=== PATIENT | female | born 1940 | race Caucasian/White ===

== ENCOUNTER 2017-08-21 16:59 | Inpatient (IN) | payer MEDICARE, OTHER ==
[~2017-08-21] VITALS: Ht 175.3 cm; Wt 106.6 kg
[~2017-08-21 16:59] MED LIST: BENAZEPRIL; COREG; JANUVIA; METFORMIN; [UNRECOGNIZED DRUG - REMARK]
--- NOTE | 2017-08-21 17:58 | Diagnostic Imaging Report ---
PROCEDURE: A single AP view of the chest. COMPARISON: None available. INDICATIONS: SHORT OF BREATH FINDINGS: Lines/tubes: Dual-lead left chest wall cardiac device in place with distal leads overlying right atrium and right ventricle. Lungs: Limited by low lung volumes and body habitus. Patient's chin obscures the extreme apices. There is pulmonary vascular congestion and mild interstitial edema. Pleura: There is no significant pleural effusion or pneumothorax. Heart and mediastinum: Enlarged cardiomediastinal silhouette on this AP view. Mild calcification aortic arch. Bones: No acute bony abnormality. IMPRESSION: Limited study as above. Pulmonary vascular congestion and mild interstitial edema. Underlying infiltrate in the perihilar regions cannot be excluded. Dictated by: Jadiel Billingsley M.D. on 08/21/2017 at 17:59 Electronically approved by: Jadiel Billingsley M.D. on 08/21/2017 at 17:59
[2017-08-21 18:17] LABS: BASOPHILS % 0.1 % (0.0-1.0); EOSINOPHILS # (AUTO) 0.1 (0.0-0.4); EOSINOPHILS % 1.1 % (0.0-6.0); HEMATOCRIT 30.4 % (34.2-44.1); HEMOGLOBIN 9.5 g/dL (12.0-16.0); LYMPHOCYTES # (AUTO) 1.1 (1.0-3.2); LYMPHOCYTES % 14.8 % (18.0-39.1); MEAN CORPUSCULAR HEMOGLOBIN 27.6 pg (28-32); MEAN CORPUSCULAR HGB CONC 31.3 g/dL (31-35); MEAN CORPUSCULAR VOLUME 88.4 fL (81-99); MONOCYTES # (AUTO) 0.5 (0.2-0.8); MONOCYTES % 6.9 % (4.4-11.3); NEUTROPHILS # (AUTO) 5.4 (2.1-6.9); NEUTROPHILS % 76.8 % (38.7-80.0); PLATELET COUNT 106 x10e3/uL (140-360); RED BLOOD COUNT 3.44 x10e6/uL (3.6-5.1); RED CELL DISTRIBUTION WIDTH 14.2 % (11.7-14.4)
[2017-08-21 18:23] LABS: INR 1.39
[2017-08-21 18:31] LABS: ALBUMIN 3.1 g/dL (3.5-5.0); ALBUMIN/GLOBULIN RATIO 0.8 (0.8-2.0); ANION GAP 12.4 mmol/L (8-16); CREATININE, SERUM 1.64 mg/dL (0.57-1.11); MAGNESIUM 1.2 MG/DL (1.3-2.1); POTASSIUM 4.4 mmol/L (3.5-5.1)
[2017-08-21 18:37] LABS: CLARITY,URINE SL CLOUDY (CLEAR); COLOR,URINE STRAW (YELLOW); LEUKOCYTE ESTERASE ,URINE TRACE (NEGATIVE); NITRITE,URINE NEGATIVE (NEGATIVE); PROTEIN,URINE DIPSTICK 2+ (NEGATIVE)
[2017-08-21 18:38] LABS: BILIRUBIN,URINE NEGATIVE (NEGATIVE); KETONES,URINE NEGATIVE (NEGATIVE); URINE UROBILINOGEN 0.2 mg/dL (0.2 - 1)
[2017-08-21] MEDS ORDERED: RIVAROXABAN 20 MG TABLET PO SCH (18:45)
[2017-08-21 18:47] LABS: BACTERIA,URINE MANY /HPF; EPITHELIAL CELLS,URINE FEW /LPF
[2017-08-21 18:52] LABS: CREATINE KINASE MB 1.3 ng/mL (0-5.0); THYROID STIMULATING HORMONE 1.397 uIU/mL (0.350-4.940)
--- NOTE | 2017-08-21 20:49 | Diagnostic Imaging Report ---
EXAM: VENTILATION PERFUSION LUNG SCAN INDICATION: 77 F with acute onset SOB COMPARISON: None DISCUSSION: Xenon-133 gas 11 mCi was administered via inhalation. Dynamic images of the lungs in the posterior projection were obtained through single breath and washout phases. Distribution of tracer activity is very irregular throughout the lungs. Washout is diffusely delayed with diffuse air trapping. Perfusion images of the lungs in multiple projections were obtained following intravenous administration of 6 mCi of Tc-99m MAA. Distribution of tracer is very irregular throughout the lungs. There are no segmental perfusion defects of any size. The contours of the lungs are well demarcated. The cardiac silhouette is enlarged. IMPRESSION: 1. Scan findings represent a LOW probability for acute pulmonary embolic disease based on the PIOPED II criteria. 2. Scan findings are compatible with diffuse parenchymal and/or obstructive lung disease. Signed by: Dr. Adelaide Grace M.D. on 08/21/2017 8:45 PM
[2017-08-21] MEDS ORDERED: SODIUM CHLORIDE FLUSH 10 ML SYR INJ PRN (21:45)
[2017-08-21] MEDS ORDERED: ONDANSETRON HCL INJ 2 MG/ML VIAL IV PRN (21:45)
--- OUTSIDE RECORDS SUMMARY | 2017-08-21 21:53 | XMS REPORT ---
Author Author [facility] Address Unknown Phone Unavailable Care Team Providers Care Registered Dental Assistant Name Role Phone MARCO A BELTRAN Unavailable Unavailable Problems This patient has no known problems. Allergies, Adverse Reactions, Alerts This patient has no known allergies or adverse reactions. Medications This patient has no known medications. Results Test Description Test Time Test Comments Text Results Atomic Results Result Comments CHEST SINGLE (PORTABLE) [place] [address] Patient Name: LEO SOMERS MR #: [id number] : 1940 Age/Sex: 77/F Req #: [id number] Adm Physician: Ordered by: SUN MYLES CLEANING CUSTODIAN Report #: [id number] Location: ER Room/Bed: Procedure: [id number] DX/CHEST SINGLE (PORTABLE) Exam Date: 08/21/17 Exam Time: 1730 REPORT STATUS: Signed PROCEDURE: A single AP view of the chest. COMPARISON: None available. INDICATIONS : SHORT OF BREATH FINDINGS: Lines/tubes: Dual-lead left chest wall cardiac device in place with distal leads overlying right atrium and right ventricle. Lungs: Limited by low lung volumes and body habitus. Patient's chin obscures the extreme apices. There is pulmonary vascular congestion and mild interstitial edema. Pleura: There is no significant pleural effusion or pneumothorax. Heart and mediastinum: Enlarged cardiomediastinal silhouette on this AP view. Mild calcification aortic arch. Bones: No acute bony abnormality. IMPRESSION: Limited study as above. Pulmonary vascular congestion and mild interstitial edema. Underlying infiltrate in the perihilar regions cannot be excluded. Dictated by: Jadiel Singleton M.D. on 08/21/2017 at 17:59 Electronically approved by: Jadiel Singleton M.D. on 08/21/2017 at 17:59 Dictated By: JADIEL SINGLETON MD 58 Transcribed By: ELIAN on 08/21/171758 COPY TO: SUN MYLES CLEANING CUSTODIAN VQ LUNG SCAN VENT PERFUSION [place] [address] Patient Name: LEO SOMERS MR #: [id number] : 1940 Age/Sex: 77/F Req #: [id number] Adm Physician: Ordered by: SUN MYLES CLEANING CUSTODIAN Report #: [id number] Location: ER Room/Bed: Procedure: [id number] NM/VQ LUNG SCAN VENT PERFUSION Exam Date: Exam Time: REPORT STATUS: Signed EXAM: VENTILATION PERFUSION LUNG SCAN INDICATION: 77 F with acute onset SOB COMPARISON: None DISCUSSION: Xenon-133 gas 11 mCi was administered via inhalation. Dynamic images of the lungs in the posterior projection were obtained through single breath and washout phases. Distribution of tracer activity is very irregular throughout the lungs. Washout is diffusely delayed with diffuse air trapping. Perfusion images of the lungs in multiple projections were obtained following intravenous administration of 6 mCi of Tc-99m MAA. Distribution of tracer is very irregular throughout the lungs. There are no segmental perfusion defects of any size. The contours of the lungs are well demarcated. The cardiac silhouette is enlarged. IMPRESSION: 1. Scan findings represent a LOW probability for acute pulmonary embolic disease based on the PIOPED II criteria. 2. Scan findings are compatible with diffuse parenchymal and/or obstructive lung disease. Signed by: Dr. Mary Grace M.D. on 08/21/2017 8:45 PM Dictated By: MARY GRACE MD 44 Transcribed By: TERRANCE on 08/21/172044 COPY TO: SUN MYLES NP
[2017-08-22] VITALS (9 sets, daily range): BP systolic 102–151; BP diastolic 55–80
[2017-08-22] MEDS ORDERED: LASIX20 MG PO (01:49)
[2017-08-22] MEDS ORDERED: AMLODIPINE BESY10 MG PO (01:49)
[2017-08-22] MEDS ORDERED: CEPHALEXIN500 MG PO (01:49)
[2017-08-22] MEDS ORDERED: BENAZEPRIL HCL10 MG PO (01:49)
[2017-08-22] MEDS ORDERED: ESIDRIX25 MG PO (01:49)
[2017-08-22] MEDS ORDERED: FUROSEMIDE 40 MG TAB PO SCH (06:00)
[2017-08-22] MEDS ORDERED: MAGNESIUM SULFATE 2GM/50ML 50 ML IV ONE (12:15)
--- NOTE | 2017-08-22 13:43 | Consultation ---
DATE OF CONSULTATION: August 22, 2017 CARDIOLOGY CONSULTATION The patient is a 77-year-old with shortness of breath. HISTORY OF PRESENT ILLNESS: The patient is a 77-year-old who has been short of breath for several days, worse with walking or exerting herself. The patient has had no chest pain, no syncope and no dizziness, no nausea, no vomiting, no abdominal pain. PAST MEDICAL HISTORY: Significant for 1. Previous permanent pacemaker insertion. 2. Previous myocardial infarction at [facility]. 3. History of a previous hip surgery. 4. History of hypertension. 5. History of chronic atrial fibrillation. MEDICATIONS AT HOME: Include 1. Amlodipine. 2. Benazepril. 3. Furosemide. 4. Xarelto. SOCIAL HISTORY: The patient does not drink and does not smoke. Patient lives independently. FAMILY HISTORY: There is a known family history of coronary artery disease. PHYSICAL EXAMINATION GENERAL: The patient is a well-developed, well-nourished female in no distress. VITAL SIGNS: Include a temperature of 97.7, pulse of 110, blood pressure of 103/72. HEAD, EARS, EYES, NOSE AND THROAT: The patient's cranium is normocephalic and atraumatic. Extraocular muscles are intact. Sclerae are anicteric. Pupils are equally round and reactive to light. There is no pallor or cyanosis of the oral mucosa. There is no erythema or edema of the throat. NECK: Supple. No jugular venous distention. No carotid bruits. CHEST: Demonstrates rhonchi and rales bilaterally. CARDIAC: Demonstrates an irregularly irregular rhythm with a short 2/6 systolic murmur. ABDOMEN: Demonstrates good bowel sounds. No tenderness and no masses. EXTREMITIES: The patient has 2 to 3+ edema bilaterally. NEUROLOGICALLY: The patient is alert and oriented x3. Cranial nerves 2-12 are intact. Motor strength is +5/+5 in all limbs. Patient's EKG demonstrated atrial fibrillation with a rapid ventricular response. IMPRESSION: The patient is a 77-year-old with congestive heart failure and atrial fibrillation with a rapid ventricular response. My recommendations are as follows: 1. The patient will require diuresis to get rid of the extra fluid. 2. An echocardiogram with Doppler has been ordered. 3. A ventilation/perfusion scan was already done, demonstrating low probability for pulmonary embolism. 4. The patient's Xarelto is being continued for her atrial fibrillation. 1. A Lexiscan nuclear stress test will be arranged for tomorrow to exclude ischemia. Job#: [id number] EV cc:SHELLEY BEGUM MD
[2017-08-22] MEDS: FUROSEMIDE INJ 10 MG/ML 4 ML VIAL IV SCH ×2 (14:53→21:59)
[2017-08-22] MEDS ORDERED: FUROSEMIDE INJ 10 MG/ML 4 ML VIAL IV SCH (21:00)
[2017-08-23] VITALS (8 sets, daily range): BP systolic 122–157; BP diastolic 60–94
[2017-08-23] MEDS: FUROSEMIDE INJ 10 MG/ML 4 ML VIAL IV SCH ×3 (06:15→21:30)
[2017-08-23 07:05] LABS: BASOPHILS % 0.3 % (0.0-1.0); EOSINOPHILS # (AUTO) 0.2 (0.0-0.4); EOSINOPHILS % 2.4 % (0.0-6.0); HEMATOCRIT 31.5 % (34.2-44.1); HEMOGLOBIN 9.7 g/dL (12.0-16.0); MEAN CORPUSCULAR HEMOGLOBIN 27.7 pg (28-32); MEAN CORPUSCULAR HGB CONC 30.8 g/dL (31-35); MONOCYTES # (AUTO) 0.5 (0.2-0.8); NEUTROPHILS # (AUTO) 4.6 (2.1-6.9); NEUTROPHILS % 72.8 % (38.7-80.0); PLATELET COUNT 123 x10e3/uL (140-360); RED CELL DISTRIBUTION WIDTH 14.3 % (11.7-14.4)
[2017-08-23 07:29] LABS: ANION GAP 13.5 mmol/L (8-16); CALCIUM 8.9 mg/dL (8.4-10.2); CREATININE, SERUM 1.67 mg/dL (0.57-1.11); MAGNESIUM 1.5 MG/DL (1.3-2.1); POTASSIUM 4.5 mmol/L (3.5-5.1)
[2017-08-23] MEDS: AMLODIPINE BESYLATE 10 MG TAB PO SCH (08:29)
[2017-08-23] MEDS: BENAZEPRIL HCL 10 MG TAB PO SCH (08:29)
[2017-08-23] MEDS: METOPROLOL TARTRATE 25 MG TAB PO SCH ×2 (09:47→16:33)
[2017-08-23] MEDS ORDERED: DEXTROSE 50% SYRINGE 50 ML IV PRN (10:15)
[2017-08-23] MEDS: INSULIN REGULAR, HUMAN 100 UNIT/1 ML 3ML VIAL SQ SCH ×3 (11:30→21:12)
[2017-08-23] MEDS: RIVAROXABAN 10 MG TABLET PO SCH (16:33)
[2017-08-24] VITALS: BP 151/95
[2017-08-24] MEDS: METOPROLOL TARTRATE INJ 1 MG/ML VIAL IV PRN ×2 (00:07→04:07)
[2017-08-24 04:00] VITALS: BP 142/70
[2017-08-24] MEDS: FUROSEMIDE INJ 10 MG/ML 4 ML VIAL IV SCH ×3 (05:45→21:29)
[2017-08-24 07:25] LABS: BASOPHILS % 0.2 % (0.0-1.0); EOSINOPHILS # (AUTO) 0.2 (0.0-0.4); EOSINOPHILS % 1.9 % (0.0-6.0); HEMATOCRIT 34.8 % (34.2-44.1); HEMOGLOBIN 10.6 g/dL (12.0-16.0); LYMPHOCYTES # (AUTO) 1.6 (1.0-3.2); LYMPHOCYTES % 19.2 % (18.0-39.1); MEAN CORPUSCULAR HEMOGLOBIN 27.2 pg (28-32); MEAN CORPUSCULAR HGB CONC 30.5 g/dL (31-35); MEAN CORPUSCULAR VOLUME 89.2 fL (81-99); MONOCYTES # (AUTO) 0.6 (0.2-0.8); MONOCYTES % 7.2 % (4.4-11.3); NEUTROPHILS # (AUTO) 5.8 (2.1-6.9); NEUTROPHILS % 70.3 % (38.7-80.0); PLATELET COUNT 163 x10e3/uL (140-360); RED CELL DISTRIBUTION WIDTH 14.2 % (11.7-14.4)
[2017-08-24] MEDS: INSULIN REGULAR, HUMAN 100 UNIT/1 ML 3ML VIAL SQ SCH ×4 (07:30→21:19)
[2017-08-24 07:45] LABS: ANION GAP 12.2 mmol/L (8-16); CALCIUM 9.4 mg/dL (8.4-10.2); CREATININE, SERUM 1.73 mg/dL (0.57-1.11); POTASSIUM 4.2 mmol/L (3.5-5.1)
[2017-08-24] MEDS ORDERED: DIGOXIN INJ 0.25 MG/ML 2 ML AMP IV NR (08:00)
[2017-08-24 08:40] VITALS: BP 107/60
[2017-08-24] MEDS: BENAZEPRIL HCL 10 MG TAB PO SCH (09:00)
--- NOTE | 2017-08-24 09:52 | Diagnostic Imaging Report ---
PROCEDURE: X-RAY CHEST, TWO VIEWS COMPARISON: Patients [facility], DX, CHEST SINGLE (PORTABLE), 08/21/2017, 17:43. INDICATIONS: CONGESTIVE HEART FAILURE FINDINGS: LUNGS: Improvement in the pulmonary edema. PLEURA: Minimal fluid within the minor fissure. HEART \T\ MEDIASTINUM: The heart remains enlarged. Dual-lead cardiac device overlies the left chest. BONES \T\ SOFT TISSUES: Degenerative changes of the spine. CONCLUSION: Improvement in the pulmonary edema. Kieran Giles D.O. Dictated by: Kieran Giles D.O. on 08/24/2017 at 9:53 Electronically approved by: Kieran Giles D.O. on 08/24/2017 at 9:53
[2017-08-24] MEDS: AMLODIPINE BESYLATE 10 MG TAB PO SCH (09:53)
[2017-08-24] MEDS: AMIODARONE HCL 200 MG TAB PO SCH (09:53)
[2017-08-24 10:53] VITALS: BP 107/60
[2017-08-24] MEDS: METOPROLOL TARTRATE 25 MG TAB PO SCH ×2 (12:00→17:12)
[2017-08-24] MEDS: RIVAROXABAN 10 MG TABLET PO SCH (16:47)
[2017-08-24 17:03] VITALS: BP 122/71
[2017-08-24 20:00] VITALS: BP 107/68
[2017-08-25] VITALS (8 sets, daily range): BP systolic 109–132; BP diastolic 63–77
[2017-08-25] MEDS: METOPROLOL TARTRATE 25 MG TAB PO SCH ×4 (00:04→17:13)
[2017-08-25] MEDS: FUROSEMIDE INJ 10 MG/ML 4 ML VIAL IV SCH ×3 (06:07→21:04)
[2017-08-25 09:19] LABS: ANION GAP 12.6 mmol/L (8-16); CALCIUM 9.3 mg/dL (8.4-10.2); CREATININE, SERUM 1.73 mg/dL (0.57-1.11); POTASSIUM 3.6 mmol/L (3.5-5.1)
[2017-08-25] MEDS: BENAZEPRIL HCL 10 MG TAB PO SCH (10:14)
[2017-08-25] MEDS: INSULIN REGULAR, HUMAN 100 UNIT/1 ML 3ML VIAL SQ SCH ×4 (10:14→20:50)
[2017-08-25] MEDS: AMIODARONE HCL 200 MG TAB PO SCH (10:14)
[2017-08-25] MEDS: AMLODIPINE BESYLATE 10 MG TAB PO SCH (10:14)
[2017-08-25] MEDS: RIVAROXABAN 10 MG TABLET PO SCH (17:13)
[2017-08-26] VITALS: BP 128/76
[2017-08-26 00:15] VITALS: BP 128/76
[2017-08-26] MEDS: METOPROLOL TARTRATE 25 MG TAB PO SCH ×4 (00:23→17:17)
[2017-08-26 04:00] VITALS: BP 121/76
[2017-08-26] MEDS: FUROSEMIDE INJ 10 MG/ML 4 ML VIAL IV SCH ×2 (05:59→14:00)
[2017-08-26 08:27] VITALS: BP 122/83
[2017-08-26] MEDS: INSULIN REGULAR, HUMAN 100 UNIT/1 ML 3ML VIAL SQ SCH ×3 (08:30→17:17)
[2017-08-26] MEDS: BENAZEPRIL HCL 10 MG TAB PO SCH (10:00)
[2017-08-26] MEDS: AMLODIPINE BESYLATE 10 MG TAB PO SCH (10:00)
[2017-08-26] MEDS: AMIODARONE HCL 200 MG TAB PO SCH (10:00)
[2017-08-26 10:42] VITALS: BP 122/83
[2017-08-26 16:00] VITALS: BP 122/77
[2017-08-26] MEDS: RIVAROXABAN 10 MG TABLET PO SCH (17:17)
[2017-08-26] MEDS ORDERED: AMIODARONE HCL200 MG PO (18:57)
[2017-08-26] MEDS ORDERED: METOPROLOL TART50 MG PO (18:57)
== END 2017-08-26 19:05 | disposition home or self-care (01) | DRG 293 ==
LOC: ER 16:59 → ERHOLD 21:51 → MED/SURG 23:02 → OBSVTOIN 08-23 16:10
DX: I50.23 Acute on chronic systolic (congestive) heart failure (principal); E11.22 Type 2 diabetes mellitus with diabetic chronic kidney disease; I48.91 Unspecified atrial fibrillation; N18.3 Chronic kidney disease, stage 3 (moderate); I25.2 Old myocardial infarction; I25.10 Atherosclerotic heart disease of native coronary artery without angina pectoris; Z95.810 Presence of automatic (implantable) cardiac defibrillator; Z79.01 Long term (current) use of anticoagulants
CPT/HCPCS: 36415; 71045; 71046; 78451; 78582; 80048; 80053; 81001; 82550; 82553; 82948; 83735; 83880; 84443; 84484; 85025; 85379; 85610; 85730; 93005; 93306; 93880; 96372; 99284; A9502; A9540; A9558; G0378; J1160; J1940

== ENCOUNTER 2017-09-16 14:27 | Inpatient (IN) | payer MEDICARE ==
[~2017-09-16] VITALS: Ht 175.3 cm; Wt 104.0 kg
[~2017-09-16 14:27] MED LIST changes: +AMIODARONE HCL200 MG PO; +AMLODIPINE BESY10 MG PO; +BENAZEPRIL HCL10 MG PO; +CEPHALEXIN500 MG PO; +ESIDRIX25 MG PO; +LASIX20 MG PO; +METOPROLOL TART50 MG PO
--- OUTSIDE RECORDS SUMMARY | 2017-09-16 14:31 | XMS REPORT | Continuity of Care Document ---
Author Author [facility] Organization [facility] Address [address] [place] [address] Phone Unavailable Care Team Providers Care Program Support Clerk Name Role Phone NESHA MCCOY DO PCP Insurance Providers Guarantor Leo Somers Address [address] [phone] Email [email or web address] Payer [employer] Medicare Complete Policy Number [id number] Subscriber's Name Leo Somers Relationship 18 Self / Same As Patient Effective Date 17 Advance Directives Directive Response Recorded Date/Time Does the patient have an advance directive? Yes 08/22/17 12:10am If yes, is advance directive on file with [facility]? No 08/22/17 12:10am If not on file with [facility] will patient provide a copy? Yes 08/22/17 12:10am Do you have a Directive to Physician? No 08/21/17 6:10pm Do you have a Medical Power of Pilot Instructor? No 08/21/17 6:10pm Do you have an out of hospital Do Not Resuscitate Order? No 08/21/17 6:10pm Do you have any special needs we should be aware of? No 08/21/17 6:10pm Do you have a support person here with you today? Yes 08/21/17 6:10pm Did patient receive Notice of Privacy Practices? Yes 08/21/17 6:10pm Did patient receive patient rights and responsibilities? Yes 08/21/17 6:10pm Problems Medical Problem Onset Date Status CHF (congestive heart failure) Unknown Dyspnea Unknown Medications Current Home Medications Medication Dose Units Route Directions Days Qty Instructions Start Date Amiodarone Hcl 200 Mg Tablet 200 Mg Oral Daily 30 Amlodipine Besylate 10 Mg Tablet 10 Mg Oral Daily 30 Tab Benazepril Hcl 10 Mg Tablet 20 Mg Oral Daily 30 Tab Cephalexin 500 Mg Capsule 500 Mg Oral Every 12 Hours 7 Days Furosemide (Lasix) 20 Mg Tablet 20 Mg Oral Daily 30 Tab Hydrochlorothiazide (Esidrix*) 25 Mg Tab 25 Mg Oral Daily Metoprolol Tartrate 50 Mg Tablet 50 Mg Oral Bedtime 60 Tab Past Home Medications Medication Directions Ordered Status Metformin , Discontinued Social History Social History Problem Response Recorded Date/Time Onset Date Status Hx Psychiatric Problems No 08/22/2017 12:10am Not Applicable Not Applicable Smoking Status Start Date Stop Date Never Smoker Hospital Discharge Instructions No hospital discharge instruction information available. Plan of Care Discharge Date 08/26/17 7:05pm Disposition HOME, SELF-CARE Instructions/Education Provided Congestive Heart Failure Prescriptions See Medication Section Referrals JANE JACOBSEN MD (Cardiology) Order Date: 7-10 Days Entered Date: 08/26/2017 2:20pm Address: [address] [place] [id number] Additional Instructions/Education ACTIVITY TOLERATED DIET TOLERATED FOLLOW UP WITH DR JANE JACOBSEN OR DR SHAH (SAME OFFICE) DEJAN WELLS Functional Status Query Response Date Recorded Assistive Devices Rolling Walker August 22, 2017 12:10am Ambulation Ability Minimum Assistance August 22, 2017 12:10am Toileting Ability Independent August 26, 2017 6:31pm Allergies, Adverse Reactions, Alerts No known allergies. Immunizations No immunization information available. Vital Signs Acute Vital Signs Vital Response Date/Time Temperature (Fahrenheit) 98.4 degrees F (97.6 - 99.5) 08/26/2017 4:00pm Pulse Pulse Rate (adult) 106 bpm (60 - 90) 08/26/2017 4:00pm Respiratory Rate 18 bpm (12 - 24) 08/26/2017 4:00pm Blood Pressure 122/77 mm Hg 08/26/2017 4:00pm Height 5 ft 9 in 08/21/2017 5:10pm Weight 235.01 lb 08/24/2017 9:03am Body Mass Index 34.7 kg/m^2 08/26/2017 12:40am Results Laboratory Results Test Name Result Units Flags Reference Collection Date/Time Result Date/ Time Comments White Blood Count 8.21 x10e3/uL 4.8-10.8 08/24/2017 7:0508/24/2017 7 :38am Red Blood Count 3.90 x10e6/uL 3.6-5.1 08/24/2017 7:0508/24/2017 7: 38am Hemoglobin 10.6 g/dL L 12.0-16.0 08/24/2017 7:0508/24/2017 7:38am Hematocrit 34.8 % 34.2-44.1 08/24/2017 7:0508/24/2017 7:38am Mean Corpuscular Volume 89.2 fL 81-99 08/24/2017 7:0508/24/2017 7: 38am Mean Corpuscular Hemoglobin 27.2 pg L 28-32 08/24/2017 7:052017 7:38am Mean Corpuscular Hemoglobin Concent 30.5 g/dL L 31-35 08/24/2017 7:0508/24/2017 7:38am Red Cell Distribution Width 14.2 % 11.7-14.4 08/24/2017 7:052017 7:38am Platelet Count 163 x10e3/uL 140-360 08/24/2017 7:0508/24/2017 7: 38am Neutrophils (%) (Auto) 70.3 % 38.7-80.0 08/24/2017 7:0508/24/2017 7: 38am Lymphocytes (%) (Auto) 19.2 % 18.0-39.1 08/24/2017 7:0508/24/2017 7: 38am Monocytes (%) (Auto) 7.2 % 4.4-11.3 08/24/2017 7:0508/24/2017 7: 38am Eosinophils (%) (Auto) 1.9 % 0.0-6.0 08/24/2017 7:0508/24/2017 7: 38am Basophils (%) (Auto) 0.2 % 0.0-1.0 08/24/2017 7:0508/24/2017 7:38am IM GRANULOCYTES % 1.2 % H 0.0-1.0 08/24/2017 7:0508/24/2017 7:38am Neutrophils # (Auto) 5.8 2.1-6.9 08/24/2017 7:05am 08/24/2017 7:38am Lymphocytes # (Auto) 1.6 1.0-3.2 08/24/2017 7:08/24/2017 7:38am Monocytes # (Auto) 0.6 0.2-0.8 08/24/2017 7:08/24/2017 7:38am Eosinophils # (Auto) 0.2 0.0-0.4 08/24/2017 7:0508/24/2017 7:38am Basophils # (Auto) 0.0 0.0-0.1 08/24/2017 7:08/24/2017 7:38am Absolute Immature Granulocyte (auto 0.10 x10e3/uL 0-0.1 08/24/2017 7: 0508/24/2017 7:38am Prothrombin Time 16.0 seconds H 11.9-14.5 08/21/2017 6:00pm 08/21/2017 6 :25pm Prothromb Time International Ratio 1.39 08/21/2017 6:00pm 2017 6:25pm Oral Anticoagulant Therapy INR Values: 1. Low Intensity Therapy 1.5 - 2.0 2. Moderate Intensity Therapy 2.0 - 3.0 3. High Intensity Therapy(1) 2.5 - 3.5 4. High Intensity Therapy(2) 3.0 - 4.0 5. Panic Value INR > 5.0 Activated Partial Thromboplast Time 28.0 seconds 23.8-35.5 08/21/2017 6: 00pm 08/21/2017 6:25pm D-Dimer Quantitative (PE/DVT) 1.70 ug/mLFEU H 0.00-0.45 08/21/2017 6: 00pm 08/21/2017 6:34pm As with all in vitro diagnostic tests, the test results should be interpreted by the physician in conjunction with clinical findings and other test results. Test results are reported in NEW D-dimer units(ug/mLFEU). Urine Color STRAW YELLOW 08/21/2017 6:05pm 08/21/2017 6:38pm Urine Clarity SL CLOUDY CLEAR 08/21/2017 6:05pm 08/21/2017 6:38pm Urine Specific Tina 1.030 H 1.010-1.025 08/21/2017 6:05pm 2017 6:38pm Urine pH 5 5 - 7 08/21/2017 6:05pm 08/21/2017 6:38pm Urine Leukocyte Esterase TRACE H NEGATIVE 08/21/2017 6:05pm 2017 6:38pm Urine Nitrite NEGATIVE NEGATIVE 08/21/2017 6:05pm 08/21/2017 6:38pm Urine Protein 2+ H NEGATIVE 08/21/2017 6:05pm 08/21/2017 6:38pm Urine Glucose (UA) NEGATIVE NEGATIVE 08/21/2017 6:05pm 08/21/2017 6: 38pm Urine Ketones NEGATIVE NEGATIVE 08/21/2017 6:05pm 08/21/2017 6:38pm Urine Urobilinogen 0.2 mg/dL 0.2 - 1 08/21/2017 6:05pm 08/21/2017 6: 38pm Urine Bilirubin NEGATIVE NEGATIVE 08/21/2017 6:05pm 08/21/2017 6: 38pm Urine Blood NEGATIVE NEGATIVE 08/21/2017 6:05pm 08/21/2017 6:38pm Urine WBC 6-10 /HPF H 0-5 08/21/2017 6:05pm 08/21/2017 6:47pm Urine RBC NONE /HPF 0-5 08/21/2017 6:05pm 08/21/2017 6:47pm Urine Bacteria MANY /HPF H NONE 08/21/2017 6:05pm 08/21/2017 6:47pm Urine Epithelial Cells FEW /LPF NONE 08/21/2017 6:05pm 08/21/2017 6: 47pm Sodium Level 139 mmol/L 136-145 08/25/2017 8:53am 08/25/2017 9:34am Potassium Level 3.6 mmol/L 3.5-5.1 08/25/2017 8:53am 08/25/2017 9:34am Chloride Level 97 mmol/L L 98-107 08/25/2017 8:53am 08/25/2017 9:34am Carbon Dioxide Level 33 mmol/L H 22-29 08/25/2017 8:53am 08/25/2017 9: 34am Anion Gap 12.6 mmol/L 8-16 08/25/2017 8:53am 08/25/2017 9:34am Blood Urea Nitrogen 43 mg/dL H 7-26 08/25/2017 8:53am 08/25/2017 9:34am Creatinine 1.73 mg/dL H 0.57-1.11 08/25/2017 8:53am 08/25/2017 9:34am BUN/Creatinine Ratio 25 6-25 08/25/2017 8:53am 08/25/2017 9:34am Estimat Glomerular Filtration Rate 29 ML/MIN L 60- 08/25/2017 8:53am 9:34am Ranges were taken from the National Kidney Disease Education Program and the National Kidney Foundation literature. Reference ranges: 60 or greater: Normal 16-59 (for 3 consecutive months): Chronic kidney disease 15 or less: Kidney failure Glucose Level 183 mg/dL H 74-118 08/25/2017 8:53am 08/25/2017 9:34am Calcium Level 9.3 mg/dL 8.4-10.2 08/25/2017 8:53am 08/25/2017 9:34am Bedside Glucose 217 mg/dL H 70-120 08/26/2017 4:34pm 08/26/2017 4:56pm Meter ID: [id number] Magnesium Level 1.5 MG/DL 1.3-2.1 08/23/2017 6:46am 08/23/2017 7:29am Total Bilirubin 1.0 mg/dL 0.2-1.2 08/21/2017 6:00pm 08/21/2017 6:32pm Aspartate Amino Transf (AST/SGOT) 13 IU/L 5-34 08/21/2017 6:00pm 2017 6:32pm Alanine Aminotransferase (ALT/SGPT) 14 IU/L 0-55 08/21/2017 6:00pm 02/2018 6:32pm Total Protein 6.9 g/dL 6.5-8.1 08/21/2017 6:00pm 08/21/2017 6:32pm Albumin 3.1 g/dL L 3.5-5.0 08/21/2017 6:00pm 08/21/2017 6:32pm Globulin 3.8 g/dL H 2.3-3.5 08/21/2017 6:00pm 08/21/2017 6:32pm Albumin/Globulin Ratio 0.8 0.8-2.0 08/21/2017 6:00pm 08/21/2017 6: 32pm Alkaline Phosphatase 92 IU/L 40-150 08/21/2017 6:00pm 08/21/2017 6: 32pm B-Type Natriuretic Peptide 728.3 pg/mL H 0-100 08/21/2017 6:00pm 2017 6:42pm Creatine Kinase 37 IU/L 29-168 08/21/2017 6:00pm 08/21/2017 6:32pm Creatine Kinase MB 1.30 ng/mL 0-5.0 08/21/2017 6:00pm 08/21/2017 6: 53pm Troponin I 0.025 ng/mL 0-0.300 08/21/2017 6:00pm 08/21/2017 6:53pm Thyroid Stimulating Hormone (TSH) 1.397 uIU/mL 0.350-4.940 08/21/2017 6: 00pm 08/21/2017 6:53pm Procedures Procedure Status Date Provider(s) X-ray of chest, two views Active 08/24/17 JAQUELIN BEGUM MD Encounters Encounter Location Arrival/Admit Date Discharge/Depart Date Attending Provider Discharged Inpatient [facility] 08/23/17 4:10pm 08/26/17 7:05pm JAQUELIN BEGUM MD
[2017-09-16] MEDS ORDERED: SODIUM CHLORIDE 0.9% 500ML 500 ML IV STA (15:09)
[2017-09-16] MEDS ORDERED: ONDANSETRON HCL 4 MG ORAL DISINTEGRATING TAB PO ONE (15:15)
[2017-09-16 16:22] LABS: BASOPHILS % 0.3 % (0.0-1.0); EOSINOPHILS % 0.6 % (0.0-6.0); HEMOGLOBIN 9.8 g/dL (12.0-16.0); LYMPHOCYTES # (AUTO) 1.1 (1.0-3.2); LYMPHOCYTES % 16.2 % (18.0-39.1); MEAN CORPUSCULAR HGB CONC 30.6 g/dL (31-35); MEAN CORPUSCULAR VOLUME 88.2 fL (81-99); MONOCYTES # (AUTO) 0.5 (0.2-0.8); MONOCYTES % 7.1 % (4.4-11.3); NEUTROPHILS # (AUTO) 4.9 (2.1-6.9); NEUTROPHILS % 75.2 % (38.7-80.0); PLATELET COUNT 108 x10e3/uL (140-360); RED BLOOD COUNT 3.63 x10e6/uL (3.6-5.1)
--- NOTE | 2017-09-16 16:28 | Diagnostic Imaging Report ---
EXAM: XR CHEST 1 VIEW DATE: 09/16/2017 3:09 PM INDICATION: Shortness of breath COMPARISON: 08/24/2017 FINDINGS: Lines and Tubes: Left chest wall pacemaker leads overlying right atrium and right ventricle. Heart and Mediastinum: Accentuated by low lung volumes. Lungs and Pleura: Minimal opacities in the lung bases statistically represent atelectasis, however, infectious process could have a similar appearance. Bones and Soft Tissues: No acute findings. IMPRESSION: 1. No acute cardiopulmonary findings. Signed by: Dr. Donato Augustin MD on 09/16/2017 4:25 PM
[2017-09-16 16:32] LABS: INR 1.63; PROTHROMBIN TIME 18.2 seconds (11.9-14.5)
[2017-09-16 16:33] LABS: PARTIAL THROMBOPLASTIN TIME 30.7 seconds (23.8-35.5)
[2017-09-16 16:43] LABS: ALBUMIN 2.9 g/dL (3.5-5.0); ALBUMIN/GLOBULIN RATIO 0.8 (0.8-2.0); ANION GAP 13.7 mmol/L (8-16); CALCIUM 8.7 mg/dL (8.4-10.2); CREATININE, SERUM 2.11 mg/dL (0.57-1.11); POTASSIUM 4.7 mmol/L (3.5-5.1)
[2017-09-16 16:50] LABS: CREATINE KINASE MB 2.1 ng/mL (0-5.0)
[2017-09-16] MEDS ORDERED: FUROSEMIDE INJ 10 MG/ML 4 ML VIAL IV ONE (17:45)
[2017-09-16] MEDS ORDERED: ASPIRIN 81 MG CHEW TAB PO ONE (18:15)
[2017-09-16] MEDS ORDERED: SODIUM CHLORIDE FLUSH 10 ML SYR INJ PRN (18:15)
[2017-09-16 21:00] VITALS: BP 110/64
[2017-09-16] MEDS: FUROSEMIDE INJ 10 MG/ML 4 ML VIAL IV SCH (22:30)
[2017-09-17] VITALS (7 sets, daily range): BP systolic 108–123; BP diastolic 58–77
[2017-09-17 01:25] LABS: CREATINE KINASE MB 1.9 ng/mL (0-5.0)
[2017-09-17 06:50] LABS: BASOPHILS % 0.3 % (0.0-1.0); EOSINOPHILS # (AUTO) 0.1 (0.0-0.4); EOSINOPHILS % 1.4 % (0.0-6.0); HEMATOCRIT 29.8 % (34.2-44.1); HEMOGLOBIN 8.9 g/dL (12.0-16.0); LYMPHOCYTES # (AUTO) 0.9 (1.0-3.2); LYMPHOCYTES % 15.9 % (18.0-39.1); MEAN CORPUSCULAR HEMOGLOBIN 27.1 pg (28-32); MEAN CORPUSCULAR HGB CONC 29.9 g/dL (31-35); MEAN CORPUSCULAR VOLUME 90.9 fL (81-99); MONOCYTES # (AUTO) 0.5 (0.2-0.8); MONOCYTES % 8.7 % (4.4-11.3); NEUTROPHILS # (AUTO) 4.3 (2.1-6.9); PLATELET COUNT 108 x10e3/uL (140-360); RED BLOOD COUNT 3.28 x10e6/uL (3.6-5.1); RED CELL DISTRIBUTION WIDTH 14.9 % (11.7-14.4)
[2017-09-17 07:29] LABS: CREATINE KINASE MB 1.6 ng/mL (0-5.0)
[2017-09-17 07:45] LABS: ALBUMIN 2.7 g/dL (3.5-5.0); ALBUMIN/GLOBULIN RATIO 0.8 (0.8-2.0); ANION GAP 11.4 mmol/L (8-16); CALCIUM 8.5 mg/dL (8.4-10.2); CREATININE, SERUM 2.02 mg/dL (0.57-1.11); POTASSIUM 4.4 mmol/L (3.5-5.1)
[2017-09-17] MEDS: AMIODARONE HCL 200 MG TAB PO SCH (09:42)
[2017-09-17] MEDS: BENAZEPRIL HCL 10 MG TAB PO SCH (09:42)
[2017-09-17] MEDS: FUROSEMIDE INJ 10 MG/ML 4 ML VIAL IV SCH ×2 (09:42→20:32)
[2017-09-17] MEDS: METOPROLOL TARTRATE 25 MG TAB PO SCH (09:42)
--- NOTE | 2017-09-17 10:33 | Consultation ---
DATE OF CONSULTATION: September 17, 2017 REASON FOR CONSULTATION: CHF. CONSULTING PHYSICIAN: Dr. Jose M Castillo HPI: This is a 77-year-old female that presented for weakness and shortness of breath. According to the patient, she had trouble walking around, accompanied with shortness of breath and orthopnea. She states that this has been going on for the last few days and she was recently discharged from the hospital in August, thus she decided to come in for evaluation. She has a history of CHF, history of chronic AFib and was anticoagulated with Xarelto. She denied any chest pain, any palpitation, any dizziness, any diaphoresis or headache. Troponin was negative. EKG with no ST abnormalities. Chest x-ray showed no acute cardiopulmonary findings. PAST MEDICAL HISTORY: [id number] diastolic CHF, chronic AFib, CAD with permanent pacemaker placement, hypertension, and diabetes. PAST SURGICAL HISTORY: Permanent pacemaker placement, hip surgery. MEDICATIONS: She was on amlodipine, benazepril, furosemide, and Xarelto. FAMILY HISTORY: Noncontributory. SOCIAL HISTORY: No smoking. No drinking. She lives at home with family. ALLERGIES: SHE IS NOT ALLERGIC TO ANY MEDICATION. REVIEW OF THE SYSTEMS: Negative except those mentioned above. PHYSICAL EXAMINATION: VITAL SIGNS: Temperature 97, heart rate 100, blood pressure 117/58, respiration 20, oxygen saturation 99% on 2 liters nasal cannula. GENERAL: She is awake, alert, and oriented x3. HEENT: Mucous membranes moist. NECK: Supple. LUNGS: Bilaterally with decreased breath sounds. CARDIOVASCULAR: Irregularly irregular. ABDOMEN: Soft. NEUROLOGICAL: Intact. EXTREMITIES: With trace edema. LABS: Sodium 142, potassium 4.4, chloride 113, CO2 22, BUN 43, creatinine 2.02, glucose 87. White blood cell 5.84, hemoglobin 8.9, hematocrit 29.8, platelets 108,000. PT 18.2, PTT 30.7, INR 1.63. IMPRESSION: 1. Congestive heart failure exacerbation. 2. Coronary artery disease with permanent pacemaker. 3. Chronic atrial fibrillation. 4. Hypertension. ASSESSMENT AND PLAN: She recently had an echocardiogram in August with ejection fraction 45% to 50%. Will go ahead and put on low-salt diet and fluid restriction 1.5 liter. Due to the low hemoglobin of 8.9, will go ahead and hold the Xarelto and put her on Lovenox and may be before discharge put her back on her Xarelto depending on the hemoglobin. Will continue diuresis, beta savannah, and low-dose angiotensin-converting enzyme, and monitor her creatinine. Possible cardiac stress test if she does not have no more shortness of breath. Thank you for this consultation. Dictated by: Magdiel Vincent NP Job#: [id number]
[2017-09-17 15:34] LABS: BILIRUBIN,URINE NEGATIVE (NEGATIVE); CLARITY,URINE CLEAR (CLEAR); COLOR,URINE YELLOW (YELLOW); KETONES,URINE NEGATIVE (NEGATIVE); LEUKOCYTE ESTERASE ,URINE TRACE (NEGATIVE); NITRITE,URINE NEGATIVE (NEGATIVE); PROTEIN,URINE DIPSTICK NEGATIVE (NEGATIVE); URINE UROBILINOGEN 0.2 mg/dL (0.2 - 1)
[2017-09-17 15:46] LABS: EPITHELIAL CELLS,URINE RARE /LPF; MUCUS,URINE FEW (RARE); RBC,URINE 0-5 /HPF (0-5)
[2017-09-17] MEDS: ENOXAPARIN 30 MG/0.3 ML SYR SC SCH (16:27)
[2017-09-18] VITALS: BP 108/77
[2017-09-18 04:00] VITALS: BP 103/90
[2017-09-18 06:56] LABS: BASOPHILS % 0.3 % (0.0-1.0); EOSINOPHILS # (AUTO) 0.1 (0.0-0.4); EOSINOPHILS % 1.7 % (0.0-6.0); HEMOGLOBIN 9.6 g/dL (12.0-16.0); LYMPHOCYTES # (AUTO) 1.3 (1.0-3.2); MEAN CORPUSCULAR VOLUME 90.1 fL (81-99); MONOCYTES # (AUTO) 0.6 (0.2-0.8); MONOCYTES % 8.5 % (4.4-11.3); NEUTROPHILS # (AUTO) 4.6 (2.1-6.9); PLATELET COUNT 124 x10e3/uL (140-360); RED BLOOD COUNT 3.55 x10e6/uL (3.6-5.1); RED CELL DISTRIBUTION WIDTH 15.1 % (11.7-14.4)
[2017-09-18 07:13] LABS: ANION GAP 15.8 mmol/L (8-16); CALCIUM 8.4 mg/dL (8.4-10.2); CREATININE, SERUM 2.12 mg/dL (0.57-1.11); POTASSIUM 4.8 mmol/L (3.5-5.1)
[2017-09-18 07:45] VITALS: BP 118/98
[2017-09-18] MEDS ORDERED: REGADENOSON 0.4 MG/5 ML SYR IV ONE (08:45)
[2017-09-18] MEDS: BENAZEPRIL HCL 10 MG TAB PO SCH (11:00)
[2017-09-18] MEDS: AMIODARONE HCL 200 MG TAB PO SCH (11:00)
[2017-09-18] MEDS: METOPROLOL TARTRATE 25 MG TAB PO SCH (11:00)
[2017-09-18] MEDS: FUROSEMIDE INJ 10 MG/ML 4 ML VIAL IV SCH ×2 (11:00→21:32)
[2017-09-18 12:35] VITALS: BP 137/87
[2017-09-18 17:39] VITALS: BP 120/86
[2017-09-18] MEDS: ENOXAPARIN 30 MG/0.3 ML SYR SC SCH (17:43)
[2017-09-18] MEDS: CEFEPIME HCL 1 GM VIAL IV SCH (17:43)
--- NOTE | 2017-09-18 18:49 | Cardiology Report ---
DATE OF STUDY: September 18, 2017 LEXISCAN MYOVIEW STRESS TEST INDICATIONS: Chest pain. DESCRIPTION OF PROCEDURE: After informed consent, patient was brought to the stress lab. She was given 0.4 mg Lexiscan over 10 seconds. Patient was given 10 millicuries of technetium 99 Myoview, and myocardial perfusion SPECT images were obtained in the horizontal long axis, short axis and vertical long axis views. Subsequently, patient was given 33 millicuries of technetium 99 Myoview, and myocardial perfusion SPECT images were obtained in the horizontal long axis, short axis and vertical long axis views. Gating images were also obtained. The patient tolerated this procedure without any complications. REPORT: Baseline EKG shows atrial fibrillation at 109 beats per minute, normal axis, normal intervals, poor R-wave progression in V1 to V3, nonspecific ST-T changes. PARAMETERS 1. Resting heart rate is 104 beats per minute. Maximum heart rate is 122 beats per minute. 2. Resting blood pressure is 116/85 mmHg. 3. Maximum blood pressure is 116/85 mmHg. REASON FOR TERMINATION: Endpoint attained. INTERPRETATION 1. Negative for chest pain. 2. Negative for arrhythmias. 3. Blood pressure response consistent with Lexiscan. 4. No significant ST-T changes seen during Lexiscan infusion compared to baseline. 5. Analysis of SPECT images reveals a small area of decreased radioisotope uptake in the inferolateral and septal frey during stress which reverses partially during rest. Left ventricle appears to be dilated. The right ventricle also appears to be dilated. CONCLUSION: 1. This study demonstrates a small area of inferolateral and septal wall ischemia. 2. Diffuse hyperkinesis of the left ventricle is noted. 3. Overall ejection fraction is about 36%. Job#: [id number] EV
[2017-09-18 20:00] VITALS: BP 151/94
[2017-09-19] VITALS (8 sets, daily range): BP systolic 147–177; BP diastolic 69–104
[2017-09-19] MEDS: CEFEPIME HCL 1 GM VIAL IV SCH ×2 (05:27→17:16)
[2017-09-19 06:57] LABS: BASOPHILS % 0.4 % (0.0-1.0); EOSINOPHILS # (AUTO) 0.1 (0.0-0.4); EOSINOPHILS % 1.7 % (0.0-6.0); HEMATOCRIT 31.5 % (34.2-44.1); HEMOGLOBIN 9.7 g/dL (12.0-16.0); LYMPHOCYTES # (AUTO) 1.2 (1.0-3.2); LYMPHOCYTES % 16.2 % (18.0-39.1); MEAN CORPUSCULAR HEMOGLOBIN 26.9 pg (28-32); MEAN CORPUSCULAR HGB CONC 30.8 g/dL (31-35); MEAN CORPUSCULAR VOLUME 87.3 fL (81-99); MONOCYTES # (AUTO) 0.7 (0.2-0.8); MONOCYTES % 9.5 % (4.4-11.3); NEUTROPHILS # (AUTO) 5.2 (2.1-6.9); NEUTROPHILS % 71.6 % (38.7-80.0); PLATELET COUNT 148 x10e3/uL (140-360); RED BLOOD COUNT 3.61 x10e6/uL (3.6-5.1); RED CELL DISTRIBUTION WIDTH 14.9 % (11.7-14.4)
[2017-09-19 07:24] LABS: ALBUMIN/GLOBULIN RATIO 0.8 (0.8-2.0); ANION GAP 14.7 mmol/L (8-16); CALCIUM 9.1 mg/dL (8.4-10.2); CREATININE, SERUM 2.01 mg/dL (0.57-1.11); POTASSIUM 4.7 mmol/L (3.5-5.1)
[2017-09-19] MEDS: FUROSEMIDE INJ 10 MG/ML 4 ML VIAL IV SCH ×2 (08:52→20:31)
[2017-09-19] MEDS: SODIUM CHLORIDE 0.9% 1000ML 1,000 ML IV SCH (11:07)
[2017-09-19] MEDS: BENAZEPRIL HCL 10 MG TAB PO SCH (13:06)
[2017-09-19] MEDS: AMIODARONE HCL 200 MG TAB PO SCH (13:06)
[2017-09-19] MEDS: METOPROLOL TARTRATE 25 MG TAB PO SCH (13:06)
[2017-09-19] MEDS: ACETYLCYSTEINE 20% INHAL SOLN 30 ML VIAL PO SCH ×2 (13:29→17:16)
[2017-09-19] MEDS ORDERED: METOPROLOL TARTRATE INJ 1 MG/ML VIAL IV PRN (16:30)
[2017-09-19] MEDS: ENOXAPARIN 30 MG/0.3 ML SYR SC SCH (17:16)
[2017-09-20] VITALS (7 sets, daily range): BP systolic 102–145; BP diastolic 63–87
[2017-09-20] MEDS: SODIUM CHLORIDE 0.9% 1000ML 1,000 ML IV SCH (04:31)
[2017-09-20] MEDS: CEFEPIME HCL 1 GM VIAL IV SCH ×2 (05:12→17:15)
[2017-09-20 06:51] LABS: BASOPHILS % 0.4 % (0.0-1.0); EOSINOPHILS # (AUTO) 0.1 (0.0-0.4); EOSINOPHILS % 1.7 % (0.0-6.0); HEMATOCRIT 34.3 % (34.2-44.1); HEMOGLOBIN 10.6 g/dL (12.0-16.0); LYMPHOCYTES # (AUTO) 1.8 (1.0-3.2); LYMPHOCYTES % 22.7 % (18.0-39.1); MEAN CORPUSCULAR HEMOGLOBIN 26.9 pg (28-32); MEAN CORPUSCULAR HGB CONC 30.9 g/dL (31-35); MEAN CORPUSCULAR VOLUME 87.1 fL (81-99); MONOCYTES # (AUTO) 0.7 (0.2-0.8); MONOCYTES % 8.9 % (4.4-11.3); NEUTROPHILS # (AUTO) 5.2 (2.1-6.9); NEUTROPHILS % 65.8 % (38.7-80.0); PLATELET COUNT 171 x10e3/uL (140-360); RED BLOOD COUNT 3.94 x10e6/uL (3.6-5.1); RED CELL DISTRIBUTION WIDTH 14.9 % (11.7-14.4)
[2017-09-20 07:02] LABS: INR 1.39
[2017-09-20] MEDS ORDERED: LIDOCAINE HCL 2% LOCAL 20 ML VIAL ONE (07:02)
[2017-09-20] MEDS ORDERED: MIDAZOLAM HCL 2 MG/2 ML VIAL ONE (07:02)
[2017-09-20] MEDS ORDERED: FENTANYL CITRATE/PF 100MCG/2 ML INJ ONE (07:02)
[2017-09-20] MEDS ORDERED: SODIUM CHLORIDE 0.9% 1000ML 1,000 ML ONE (07:03)
[2017-09-20] MEDS ORDERED: HEPARIN SOD/SOD CHLORIDE 2,000 ML ONE (07:03)
[2017-09-20] MEDS ORDERED: IOPAMIDOL 370 MG/ML 200 ML INFUS..BTL INJ ONE (07:03)
[2017-09-20 07:14] LABS: ANION GAP 13.9 mmol/L (8-16); CALCIUM 9.1 mg/dL (8.4-10.2); CREATININE, SERUM 1.74 mg/dL (0.57-1.11); POTASSIUM 3.9 mmol/L (3.5-5.1)
--- NOTE | 2017-09-20 08:37 | Operative Report ---
DATE OF PROCEDURE: September 20, 2017 PROCEDURES 1. Left heart catheterization. 2. Selective coronary angiogram. 3. Left ventriculogram. INDICATIONS: Abnormal stress test, cardiomyopathy. BLOOD LOSS: 2 mL. ANESTHESIA: 2% lidocaine for local anesthesia and fentanyl and Versed for conscious sedation. DESCRIPTION OF PROCEDURE: After informed consent, the patient was brought to the cardiac catheterization laboratory and placed on the table. Both groins were painted and draped in a sterile fashion. Lidocaine injected in the right groin for local anesthesia. Right femoral artery was accessed by Seldinger technique, and a 5-Burmese sheath was placed in the right femoral artery. Left main artery was cannulated using a JL4 5-Burmese catheter. Coronary angiogram was performed and images obtained in multiple views. Right coronary artery was cannulated using a 3DRC 5-Burmese catheter. Coronary angiogram was performed and images obtained in multiple views. LV-gram was performed using a pigtail catheter by hand injection. The arteriotomy site was closed using a vascular closure device. Patient tolerated the procedure without any complications. REPORT 1. LEFT MAIN: Normal caliber. No stenosis is noted. 2. LEFT ANTERIOR DESCENDING: Normal caliber with luminal irregularities. 3. LEFT CIRCUMFLEX: Normal caliber. Has luminal irregularities. 4. RIGHT CORONARY ARTERY: Normal caliber with luminal irregularities. 5. LV-gram: Mild diffuse hypokinesis of the left ventricle is noted. 6. Overall ejection fraction is about 40%. HEMODYNAMICS: Aortic pressure is 122/94. LV pressure is 124/12. LVEDP is 20. PLAN: Medical management. Job#: [id number] BRIDGET
[2017-09-20] MEDS: ACETYLCYSTEINE 20% INHAL SOLN 30 ML VIAL PO SCH ×2 (09:00→17:00)
[2017-09-20] MEDS: FUROSEMIDE INJ 10 MG/ML 4 ML VIAL IV SCH ×2 (14:37→21:11)
[2017-09-20] MEDS: METOPROLOL TARTRATE 25 MG TAB PO SCH (14:38)
[2017-09-20] MEDS: AMIODARONE HCL 200 MG TAB PO SCH (14:38)
[2017-09-20] MEDS: BENAZEPRIL HCL 10 MG TAB PO SCH (14:38)
[2017-09-20] MEDS: ENOXAPARIN 30 MG/0.3 ML SYR SC SCH (17:15)
--- NOTE | 2017-09-20 18:55 | Diagnostic Imaging Report ---
PROCEDURE: Frontal and lateral views of the chest. COMPARISON: Chest x-ray 09/20/2017. INDICATIONS: SHORTNESS OF BREATH, CONGESTIVE HEART FAILURE FINDINGS: Lines/tubes: Left-sided pacemaker with 2 wires. Lungs: The lungs are well inflated and clear. There is no evidence of pneumonia or pulmonary edema. Pleura: There is no pleural effusion or pneumothorax. Heart and mediastinum: Moderate cardiomegaly is unchanged. Tortuous mildly ectatic aorta is again seen with atherosclerotic calcifications. Enlargement pulmonary arteries are unchanged. Bones: No acute bony abnormality. IMPRESSION: Unchanged moderate cardiomegaly. No acute cardiopulmonary disease. Dictated by: Fady Quintana M.D. on 09/20/2017 at 18:57 Electronically approved by: Fady Quintana M.D. on 09/20/2017 at 18:57 Electronically approved by: aFdy Quintana M.D. on 09/20/2017 at 18:58
[2017-09-21] VITALS: BP 159/101
[2017-09-21 04:00] VITALS: BP 154/63
[2017-09-21] MEDS: CEFEPIME HCL 1 GM VIAL IV SCH ×2 (05:18→17:09)
[2017-09-21 07:54] LABS: BASOPHILS % 0.3 % (0.0-1.0); EOSINOPHILS # (AUTO) 0.1 (0.0-0.4); EOSINOPHILS % 1.7 % (0.0-6.0); HEMOGLOBIN 10.5 g/dL (12.0-16.0); LYMPHOCYTES # (AUTO) 1.4 (1.0-3.2); LYMPHOCYTES % 20.2 % (18.0-39.1); MEAN CORPUSCULAR HEMOGLOBIN 26.6 pg (28-32); MEAN CORPUSCULAR HGB CONC 30.9 g/dL (31-35); MEAN CORPUSCULAR VOLUME 86.1 fL (81-99); MONOCYTES # (AUTO) 0.6 (0.2-0.8); MONOCYTES % 8.6 % (4.4-11.3); NEUTROPHILS # (AUTO) 4.8 (2.1-6.9); NEUTROPHILS % 68.8 % (38.7-80.0); PLATELET COUNT 163 x10e3/uL (140-360); RED BLOOD COUNT 3.95 x10e6/uL (3.6-5.1)
[2017-09-21 08:03] VITALS: BP 123/83
[2017-09-21 08:23] LABS: ANION GAP 14.2 mmol/L (8-16); CREATININE, SERUM 1.67 mg/dL (0.57-1.11); POTASSIUM 4.2 mmol/L (3.5-5.1)
[2017-09-21] MEDS: BENAZEPRIL HCL 10 MG TAB PO SCH (08:48)
[2017-09-21] MEDS: AMIODARONE HCL 200 MG TAB PO SCH (08:48)
[2017-09-21] MEDS: FUROSEMIDE INJ 10 MG/ML 4 ML VIAL IV SCH ×2 (08:48→20:53)
[2017-09-21] MEDS: METOPROLOL TARTRATE 25 MG TAB PO SCH (08:48)
[2017-09-21 12:20] VITALS: BP 150/82
[2017-09-21 16:00] VITALS: BP 119/87
[2017-09-21] MEDS ORDERED: RIVAROXABAN 10 MG TABLET PO SCH (17:00)
[2017-09-21 20:00] VITALS: BP 150/82
== END 2017-09-21 21:14 | disposition home health service (06) | DRG 286 ==
LOC: ER 14:27 → ERHOLD 18:50 → IMCU 20:28 → OBSVTOIN 09-18 16:51 → MED/SURG 09-18 17:52
PROC: 4A023N7 Measurement of Cardiac Sampling and Pressure, Left Heart, Percutaneous Approach (ICD-10-PCS; principal; 2017-09-20)
PROC: B2111ZZ Fluoroscopy of Multiple Coronary Arteries using Low Osmolar Contrast (ICD-10-PCS; 2017-09-20)
PROC: B2151ZZ Fluoroscopy of Left Heart using Low Osmolar Contrast (ICD-10-PCS; 2017-09-20)
DX: I13.0 Hypertensive heart and chronic kidney disease with heart failure and stage 1 through stage 4 chronic kidney disease, or unspecified chronic kidney disease (principal); I50.33 Acute on chronic diastolic (congestive) heart failure; N39.0 Urinary tract infection, site not specified; N18.3 Chronic kidney disease, stage 3 (moderate); E11.22 Type 2 diabetes mellitus with diabetic chronic kidney disease; I48.2 Chronic atrial fibrillation; Z79.01 Long term (current) use of anticoagulants; I25.10 Atherosclerotic heart disease of native coronary artery without angina pectoris; Z95.0 Presence of cardiac pacemaker; R53.81 Other malaise
CPT/HCPCS: 36140; 36415; 71045; 71046; 77002; 78452; 80048; 80053; 81001; 82150; 82550; 82553; 82948; 83690; 83880; 84484; 85025; 85610; 85730; 87086; 87186; 93005; 93017; 93452; 93458; 99284; A9502; G0378; J0692; J1650; J1940; J2001; J2250; J7030; J7040; Q9967

== ENCOUNTER 2018-07-14 22:13 | Inpatient (IN) | payer MEDICARE ==
[~2018-07-14] VITALS: Ht 175.3 cm; Wt 91.2 kg
--- OUTSIDE RECORDS SUMMARY | 2018-07-14 22:17 | XMS REPORT ---
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 Allergies, Adverse Reactions, Alerts Allergy Name Allergy Type Status Severity Reaction(s) Onset Date Inactive Date Treating Clinician Comments No Known Allergies DA Active U 2018-04-22 00:00:00 Medications This patient has no known medications. Results Test Description Test Time Test Comments Text Results Atomic Results Result Comments CHEST 2 VIEWS [place] [address] Patient Name: LEO SOMERS MR #: [id number] : 1940 Age/Sex: 77/F Req #: [id number] Adm Physician: JAQUELIN BEGUM MD Ordered by: JAQUELIN BEGUM MD Report #: [id number] Location: MED/SURG Room/Bed: [facility] Procedure: [id number] DX/CHEST 2 VIEWS Exam Date: 09/20/17 Exam Time: 1830 REPORT STATUS: Signed PROCEDURE: Frontal and lateral views of the chest. COMPARISON: Chest x-ray 09/20/2017. INDICATIONS: SHORTNESS OF BREATH, CONGESTIVE HEART FAILURE FINDINGS: Lines/tubes: Left- sided pacemaker with 2 wires. Lungs: The lungs are well inflated and clear. There is no evidence of pneumonia or pulmonary edema. Pleura: There is no pleural effusion or pneumothorax. Heart and mediastinum: Moderate cardiomegaly is unchanged. Tortuous mildly ectatic aorta is again seen with atherosclerotic calcifications. Enlargement pulmonary arteries are unchanged. Bones: No acute bony abnormality. IMPRESSION: Unchanged moderate cardiomegaly. No acute cardiopulmonary disease. Dictated by: Fady Quintana M.D. on 09/20/2017 at 18:57 Electronically approved by: Fady Quintana M.D. on 09/20/2017 at 18:57 Electronically approved by: Fady Quintana M.D. on 09/20/2017 at 18:58 Dictated By: FADY QUINTANA MD 57 Transcribed By: ELIAN on 09/20/171857 COPY TO: JAQUELIN BEGUM MD Stress Test - Treadmill ONLY [place] [address] Patient Name : LEO SOMERS MR #: [id number] : 1940 Age/Sex: 77/F Adm Physician : JAQUELIN BEGUM MD Admit Date : 09/18/17 Location : MED/SURG Room/Bed : [facility] REPORT: Cardiology Report DATE OF STUDY: September 18, 2017 LEXISCAN MYOVIEW STRESS TEST INDICATIONS: Chest pain. DESCRIPTION OF PROCEDURE: After informed consent, patient was brought to the stress lab. She was given 0.4 mg Lexiscan over 10 seconds. Patient was given 10 millicuries of technetium 99 Myoview, and myocardial perfusion SPECT images were obtained in the horizontal long axis, short axis and vertical long axis views. Subsequently, patient was given 33 millicuries of technetium 99 Myoview, and myocardial perfusion SPECT images were obtained in the horizontal long axis, short axis and vertical long axis views. Gating images were also obtained. The patient tolerated this procedure without any complications. REPORT: Baseline EKG shows atrial fibrillation at 109 beats per minute, normal axis, normal intervals, poor R-wave progression in V1 to V3, nonspecific ST-T changes. PARAMETERS 1. Resting heart rate is 104 beats per minute. Maximum heart rate is 122 beats per minute. 2. Resting blood pressure is 116/85 mmHg. 3. Maximum blood pressure is 116/85 mmHg. REASON FOR TERMINATION: Endpoint attained. INTERPRETATION 1. Negative for chest pain. 2. Negative for arrhythmias. 3. Blood pressure response consistent with Lexiscan. 4. No significant ST-T changes seen during Lexiscan infusion compared to baseline. 5. Analysis of SPECT images reveals a small area of decreased radioisotope uptake in the inferolateral and septal frey during stress which reverses partially during rest. Left ventricle appears to be dilated. The right ventricle also appears to be dilated. CONCLUSION: 1. This study demonstrates a small area of inferolateral and septal wall ischemia. 2. Diffuse hyperkinesis of the left ventricle is noted. 3. Overall ejection fraction is about 36%. Job#: [id number] EV Signature Date Dictated By: LYNN SHAH MD Transcribed By: EDS on 09/18/17 <Electronically signed by LYNN SHAH MD><<Signature on File>>09/26/17 1200 COPY TO: CHEST SINGLE (NOT PORTABLE) [place] [address] Patient Name: LEO SOMERS MR #: [id number] : 1940 Age/Sex: 77/F Req #: [id number] Adm Physician: Ordered by: YAIMA HUTCHINS MD Report #: [id number] Location: ER Room/Bed: Procedure: [id number] DX/CHEST SINGLE (NOT PORTABLE) Exam Date: 09/16/17 Exam Time: 1545 REPORT STATUS: Signed EXAM: XR CHEST 1 VIEW DATE: 09/16/2017 3:09 PM INDICATION: Shortness of breath COMPARISON: 08/24/2017 FINDINGS: Lines and Tubes: Left chest wall pacemaker leads overlying right atrium and right ventricle. Heart and Mediastinum: Accentuated by low lung volumes. Lungs and Pleura: Minimal opacities in the lung bases statistically represent atelectasis, however, infectious process could have a similar appearance. Bones and Soft Tissues: No acute findings. IMPRESSION: 1. No acute cardiopulmonary findings. Signed by: Dr. Yury Augustin MD on 09/16/2017 4:25 PM Dictated By: YURY AUGUSTIN MD 1629 Transcribed By: TERRANCE on 09/16/17 1625 COPY TO: YAIMA HUTCHINS MD CHEST 2 VIEWS [place] [address] Patient Name: LEO SOMERS MR #: [id number] : 1940 Age/Sex: 77/F Req #: [id number] Adm Physician: JAQUELIN BEGUM MD Ordered by: JAQUELIN BEGUM MD Report #: [id number] Location: MED/SURG Room/Bed: [facility] Procedure: [id number] DX/CHEST 2 VIEWS Exam Date: 08/24/17 Exam Time: 0650 REPORT STATUS: Signed PROCEDURE: X-RAY CHEST, TWO VIEWS COMPARISON: [facility], DX, CHEST SINGLE (PORTABLE), 08/21/2017, 17:43. INDICATIONS: CONGESTIVE HEART FAILURE FINDINGS: LUNGS: Improvement in the pulmonary edema. PLEURA: Minimal fluid within the minor fissure. HEART T MEDIASTINUM: The heart remains enlarged. Dual-lead cardiac device overlies the left chest. BONES T SOFT TISSUES: Degenerative changes of the spine. CONCLUSION: Improvement in the pulmonary edema. Kieran Giles D.O. Dictated by: Kieran Giles D.O. on 08/24/2017 at 9:53 Electronically approved by: Kieran Giles D.O. on 08/24/2017 at 9:53 Dictated By: KIERAN GILES DO 2 Transcribed By: Daryn JEREZ on 08/24/17952 COPY TO: JAQUELIN BEGUM MD CHEST SINGLE (PORTABLE) [place] [address] Patient Name: LEO SOMERS MR #: [id number] : 1940 Age/Sex: 77/F Req #: [id number] Adm Physician: Ordered by: SUN [employer]LES GROUP TEACHER Report #: [id number] Location: ER Room/Bed: Procedure: [id number] DX/CHEST SINGLE (PORTABLE) Exam Date: 08/21/17 Exam Time: 1730 REPORT STATUS: Signed PROCEDURE: A single AP view of the chest. COMPARISON: None available. INDICATIONS: SHORT OF BREATH FINDINGS: Lines/tubes: Dual-lead left [...] on 08/21/2017 at 17:59 Dictated By: JADIEL SINGLTEON MD 58 Transcribed By: ELIAN on 08/21/171758 COPY TO: SUN MYLES GROUP TEACHER VQ LUNG SCAN VENT PERFUSION [place] [address] Patient Name: LEO SOMERS MR #: [id number] : 1940 Age/Sex: 77/F Req #: [id number] Adm Physician: Ordered by: SUN MYLES GROUP TEACHER Report #: [id number] Location: ER Room/Bed: Procedure: [id number] NM/VQ LUNG SCAN VENT PERFUSION Exam Date: [...]
--- NOTE | 2018-07-14 22:58 | Diagnostic Imaging Report ---
EXAMINATION: CHEST SINGLE (PORTABLE) COMPARISON: Chest x-ray 09/20/2017 INDICATION: Shortness of breath ^sob ^[id number] ^2235 ^Y DISCUSSION: Frontal view of the chest obtained at 2235 hours. HEART AND MEDIASTINUM: The heart is enlarged and contains pacer wires in the right atrium and right ventricle. The aorta is ectatic and stable in morphology. Enlarged pulmonary arteries are stable suggestive of pulmonary artery hypertension. LUNGS: Multifocal airspace opacities have developed predominantly in the right upper lobe. PLEURA: Left diaphragm is not visible. No evidence of right pleural effusion. No pneumothorax. BONES AND SOFT TISSUES: Diffusely demineralized. No focal osseous lesions.. The soft tissues are normal. IMPRESSION: 1. Multifocal airspace opacities suggestive of pneumonia. 2. Cardiomegaly and pulmonary artery hypertension. 3. Poor visualization of the left diaphragm either due to atelectasis, infiltrate, or pleural effusion. Signed by: Dr. Dotty Larson MD on 07/14/2018 10:55 PM
[2018-07-14] MEDS: ALBUTEROL/IPRATROPIUM 3 ML NEB NEB ONE ×2 (23:23→23:53)
--- NOTE | 2018-07-14 23:37 | NUR ---
RT CALLED FOR CAROL CASTANEDA.
[2018-07-14 23:40] LABS: BASOPHILS # (AUTO) 0.1 (0.0-0.1); BASOPHILS % 0.5 % (0.0-1.0); EOSINOPHILS # (AUTO) 0.1 (0.0-0.4); EOSINOPHILS % 0.7 % (0.0-6.0); HEMATOCRIT 28.9 % (34.2-44.1); HEMOGLOBIN 8.7 g/dL (12.0-16.0); LYMPHOCYTES # (AUTO) 1.3 (1.0-3.2); LYMPHOCYTES % 8.6 % (18.0-39.1); MEAN CORPUSCULAR HEMOGLOBIN 28.4 pg (28-32); MEAN CORPUSCULAR HGB CONC 30.1 g/dL (31-35); MEAN CORPUSCULAR VOLUME 94.4 fL (81-99); MONOCYTES # (AUTO) 1.2 (0.2-0.8); MONOCYTES % 7.7 % (4.4-11.3); NEUTROPHILS # (AUTO) 11.9 (2.1-6.9); NEUTROPHILS % 77.9 % (38.7-80.0); PLATELET COUNT 152 x10e3/uL (140-360); RED BLOOD COUNT 3.06 x10e6/uL (3.6-5.1); RED CELL DISTRIBUTION WIDTH 19.5 % (11.7-14.4)
[2018-07-14] MEDS ORDERED: FUROSEMIDE INJ 10 MG/ML 4 ML VIAL IV ONE (23:45)
[2018-07-14] MEDS: CEFTRIAXONE SOD 1 GM/NS 50 ML 50 ML IV SCH (23:48)
[2018-07-14 23:52] LABS: INR 1.93; PROTHROMBIN TIME 22.7 seconds (11.9-14.5)
[2018-07-14 23:53] LABS: PARTIAL THROMBOPLASTIN TIME 35.2 seconds (23.8-35.5)
[2018-07-15 00:09] LABS: ALBUMIN 2.6 g/dL (3.5-5.0); ALBUMIN/GLOBULIN RATIO 0.6 (0.8-2.0); ANION GAP 14.2 mmol/L (8-16); CALCIUM 9.5 mg/dL (8.4-10.2); CREATININE, SERUM 2.89 mg/dL (0.57-1.11); POTASSIUM 5.2 mmol/L (3.5-5.1)
[2018-07-15] MEDS: AZITHROMYCIN 500MG/NS 250 ML 250 ML IV SCH ×2 (00:21→23:35)
[2018-07-15] MEDS ORDERED: FUROSEMIDE INJ 10 MG/ML 4 ML VIAL IV ONE (00:30)
[2018-07-15 00:41] LABS: CREATINE KINASE MB 1.8 ng/mL (0-5.0)
[2018-07-15 00:42] LABS: BILIRUBIN,URINE NEGATIVE (NEGATIVE); CLARITY,URINE CLOUDY (CLEAR); COLOR,URINE YELLOW (YELLOW); KETONES,URINE NEGATIVE (NEGATIVE); LEUKOCYTE ESTERASE ,URINE 2+ (NEGATIVE); NITRITE,URINE POSITIVE (NEGATIVE); PROTEIN,URINE DIPSTICK 1+ (NEGATIVE); URINE UROBILINOGEN 0.2 mg/dL (0.2 - 1)
[2018-07-15 00:43] LABS: BACTERIA,URINE MANY /HPF; EPITHELIAL CELLS,URINE FEW /LPF; RENAL EPITHELIAL CELLS,URINE MODERATE; TRANSITIONAL EPI CELLS,URINE FEW; WBC,URINE (MAN) >50 /HPF (0-5)
[2018-07-15] MEDS ORDERED: ONDANSETRON HCL INJ 2MG/ML 2ML 2 MG/ML VIAL IV STA (00:56)
[2018-07-15] MEDS ORDERED: ONDANSETRON HCL INJ 2MG/ML 2ML 2 MG/ML VIAL ONE (01:01)
[2018-07-15] MEDS ORDERED: DEXTROSE 50% SYRINGE 50 ML IV PRN ×2 (01:15→04:45)
[2018-07-15] MEDS ORDERED: ACETAMINOPHEN 325 MG TAB PO PRN (01:15)
[2018-07-15] MEDS ORDERED: SODIUM CHLORIDE FLUSH 10 ML SYR INJ PRN (01:15)
--- NOTE | 2018-07-15 01:30 | NUR ---
PT STARTED TO DESAT DURING SLEEP. DR ANTHONY NOTIFIED, BIPAP ORDER RECEIVED.
[2018-07-15] MEDS ORDERED: LOPERAMIDE2 MG PO (03:08)
[2018-07-15] MEDS ORDERED: LEVEMIR100 UNIT/1 SC (03:08)
[2018-07-15] MEDS ORDERED: NORCO 10-325 T1 EACH PO (03:08)
[2018-07-15] MEDS ORDERED: NYSTATIN1 EAC2 TOP (03:08)
[2018-07-15] MEDS ORDERED: DILTIAZEM HCL60 MG PO (03:08)
[2018-07-15] MEDS ORDERED: LEVALBUTER0.63 MG/3 NEB (03:08)
[2018-07-15] MEDS ORDERED: CLONIDINE HCL0.3 MG PO (03:08)
[2018-07-15] MEDS ORDERED: VITAMIN B-121000 MCG PO (03:08)
[2018-07-15] MEDS ORDERED: IPRATROPIU0.2 MG/1 M NEB (03:08)
[2018-07-15] MEDS ORDERED: ELIQUIS PO (03:08)
[2018-07-15] MEDS ORDERED: NOVOLOG100 UNITS1 (03:08)
[2018-07-15] MEDS ORDERED: ASCORBIC ACID500 M2 PO (03:08)
[2018-07-15] MEDS ORDERED: OLANZAPINE5 MG PO (03:08)
[2018-07-15] MEDS ORDERED: MEGESTROL400 MG/10 PO (03:08)
[2018-07-15] MEDS ORDERED: ASPIRIN EC81 MG PO (03:08)
[2018-07-15] MEDS ORDERED: SERTRALINE HCL50 MG PO (03:08)
[2018-07-15] MEDS ORDERED: HYDROCODONE/APAP 10MG-325MG TAB PO PRN (04:45)
[2018-07-15] MEDS ORDERED: LOPERAMIDE HCL 2 MG CAP PO PRN (05:00)
[2018-07-15 05:48] LABS: ABG HCO3 19 mmol/L (23-28); ABG PCO2 38 mmHg (41-51); ABG PH 7.31 (7.31-7.41); ABG PO2 92 mmHg (80-105)
--- NOTE | 2018-07-15 08:04 | NUR ---
RT in room to eval pt for bipap removal. patient placed on 3l n/c
[2018-07-15] MEDS: METOPROLOL TARTRATE 50 MG TAB PO SCH ×3 (08:28→23:34)
[2018-07-15] MEDS: ASCORBIC ACID 500 MG TAB PO SCH ×2 (08:29→17:15)
[2018-07-15] MEDS: ASPIRIN 81 MG ENTERIC COATED PO SCH (08:29)
[2018-07-15] MEDS: FUROSEMIDE INJ 10 MG/ML 4 ML VIAL IV SCH ×2 (08:29→17:15)
[2018-07-15] MEDS: CYANOCOBALAMIN 1,000 MCG TAB PO SCH (08:29)
[2018-07-15] MEDS: INSULIN REGULAR, HUMAN 100 UNIT/1 ML 3ML VIAL SQ SCH ×8 (08:29→21:11)
[2018-07-15] MEDS: DILTIAZEM HCL 60 MG TAB PO SCH ×4 (08:30→21:21)
[2018-07-15] MEDS: SERTRALINE HCL 50 MG TAB PO SCH (08:30)
[2018-07-15 08:38] LABS: CREATINE KINASE MB 1.6 ng/mL (0-5.0)
--- NOTE | 2018-07-15 08:43 | NUR ---
turned patient to right side. patient off bipap and on 3l n/c. no c/o SOB, no s/s of acute distress. patient reports she feels she is breathing fine.
--- NOTE | 2018-07-15 09:40 | NUR ---
patient turned to left side
--- NOTE | 2018-07-15 10:41 | NUR ---
Dr. Jose M Castillo in to see patient.
--- NOTE | 2018-07-15 11:15 | NUR ---
PATIENT TURNED TO LEFT SIDE
[2018-07-15] MEDS: NYSTATIN 15 GM POWDER UD BTL TOP SCH ×2 (12:10→17:15)
[2018-07-15] MEDS: CLONIDINE HCL 0.3 MG TAB PO SCH (12:10)
[2018-07-15] MEDS: APIXAB 2.5 MG TABLET PO SCH ×2 (12:10→17:15)
[2018-07-15] MEDS: MEGACE 400MG/ 10ML CUP PO SCH (12:10)
--- NOTE | 2018-07-15 13:27 | NUR ---
PATIENT TURNED TO RIGHT SIDE
--- NOTE | 2018-07-15 15:42 | NUR ---
WOUND CARE NURSE IN ROOM WITH PATIENT
--- NOTE | 2018-07-15 16:02 | NUR ---
WOUND CARE CONSULTATION - INITIAL EVALUATION Patient admitted from Home to ER for Dyspnea. HX: HTN, DM, CHF, [place], A-fib, Cervical Ca. LABS: WBC:15.27 HGB:8.7 HCT:28.9 NEUT%77.9 IJS386 ALB2.6 WOUND CARE CULTURE - None on file. PATIENT VISIT: - Patient Calm & Pleasantly confused, in Stretcher @ ER Hold 10. - Jamil Score 12. - Able to Turn self but unaware she has wound on her Sacrum. Denies pain or discomfort. - Bilateral heels intact. No redness. No swelling - Sacral presents with large, Full thickness ulcer with palpable bone and exposed tendon. Measurements documented in wound assessment linked to this note. Periwound edges raised and rolled indicating stalled wound. Wound bed pale pink/red 100% granular with area of DTI at center base of wound. No Undermining, Periwound macerated. Draining large serous fluid/ serosanguineous. IMPRESSION: Sacral Wound - Stage IV Pressure Ulcer - Present on Admission. RECOMMENDATION: 1. Sacral - Stage IV - Pressure Ulcer Present On Admission: - Cleanse wound with Normal Saline and 4x4 gauze Daily and PRN Soiling. - Apply Silver Alginate( Maxsorb Ag+) and cover with Allevyn Foam Sacrum Dressing Daily and PRN Soiling. 2. Alternating Pressure Air Mattress. 3. Continue Bilateral Heel Protectors/ Offload Heels with Pillows. 4. Turn and Reposition q2H 5. C&S and Gram Stain of Sacral Wound. 6. Strict PUP. 7. Wheel Chair Cushion when out of bed. Thank you for consulting with Wound Care. Addendum: 07/15/18 at 1613 by Mayank Perry RN Amended: Links added.
--- NOTE | 2018-07-15 16:07 | NUR ---
WOUND CARE ADVISED SACRAL WOUND TO BE STAGED A STAGE 4. NOTED A SMALL BRUIS TO RIGHT INNER THIGH.
[2018-07-15 16:47] LABS: CREATINE KINASE MB 1.5 ng/mL (0-5.0)
--- NOTE | 2018-07-15 19:00 | NUR ---
RECEIVED REPORT FROM DEBORA BURRELL
--- NOTE | 2018-07-15 19:05 | NUR ---
PT AWAKE ALERT SKIN W/D RESP NONLAB. NAD NOTED. RESTING IN POC, DENIES ANY COMPLAINTS AT THIS TIME. TURNED TO RIGHT SIDE
--- NOTE | 2018-07-15 21:00 | NUR ---
PT PULLED OUT REJ IV,BLEEDING CONTROLLED, CHANGED LINENS. EMPTIED COLOSTOMY BAG WITH SOFT BROWN STOOL NOTED. RESTARTED SALINE LOCK IN RIGHT ACF X 1 STICK, SITE PROTECTED WITH COBAN. PT AWAKE ALERT SKIN W/D RESP NONLAB. NAD NOTED.
[2018-07-15] MEDS: OLANZAPINE 5 MG TAB PO SCH (21:21)
[2018-07-15 23:00] VITALS: BP 143/95
--- NOTE | 2018-07-15 23:00 | NUR ---
Report received from DIRECTOR OF PEDIATRIC REHABILITATION Wilder. Patient admitted in unit at 2236 by bed.Patient alert/oriented x2 verbal response,answered all questions but little confused.Denied pain and SOB noted. Patient continued on 3liters oxygen via nasal canula,Spo2 maintained 91%. Head to toe assessment completed. Patient had stage IV pressure wound on medial sacrum and stage III on inner left sacrum.Bruises on right neck and right hand noted. Patient assisted to give some snack and water. Patient instructed to call for help as needed. Bed in lower position,locked. Call dye within reach. Will continue to monitor.
--- NOTE | 2018-07-15 23:15 | NUR ---
Patient connected to BIPAP at this time. Will continue to monitor.
[2018-07-15] MEDS ORDERED: SODIUM CHLORIDE 0.9% 250ML 250 ML ONE (23:22)
[2018-07-15] MEDS: CEFTRIAXONE SOD 1 GM/NS 50 ML 50 ML IV SCH (23:34)
[2018-07-15 23:35] VITALS: BP 156/111
[2018-07-15 23:43] VITALS: BP 156/111
[2018-07-15 23:53] VITALS: BP 156/111
[2018-07-16] VITALS (11 sets, daily range): BP systolic 83–130; BP diastolic 53–89
[2018-07-16] MEDS: AZITHROMYCIN 500MG/NS 250 ML 250 ML IV SCH (00:12)
--- NOTE | 2018-07-16 00:40 | NUR ---
Patient pulled out BIPAP,Connected back to 3liters oxygen via nasal canula,Spo2 maintained 95%. Will continue to monitor.
--- NOTE | 2018-07-16 02:21 | NUR ---
Patient assisted to empty colostomy bag,had soft brown large stool. Will continue to monitor.
--- NOTE | 2018-07-16 05:49 | NUR ---
Assisted patient to empty colostomy bag,had soft brown moderate stool . Will continue to monitor.
--- NOTE | 2018-07-16 07:08 | NUR ---
Report given to AM DEJAN Lou,walking round done.
[2018-07-16] MEDS: INSULIN REGULAR, HUMAN 100 UNIT/1 ML 3ML VIAL SQ SCH ×6 (07:22→21:00)
--- NOTE | 2018-07-16 08:08 | NUR ---
pt resting in bed, no c/o pain or s/s distress. will continue to monitor.
[2018-07-16] MEDS: NYSTATIN 15 GM POWDER UD BTL TOP SCH ×2 (09:00→19:24)
--- NOTE | 2018-07-16 09:23 | NUR ---
per , no am labs needed
[2018-07-16] MEDS: FUROSEMIDE INJ 10 MG/ML 4 ML VIAL IV SCH ×2 (10:31→19:24)
[2018-07-16] MEDS: ASPIRIN 81 MG ENTERIC COATED PO SCH (10:31)
[2018-07-16] MEDS: METOPROLOL TARTRATE 50 MG TAB PO SCH ×2 (10:32→19:24)
[2018-07-16] MEDS: SERTRALINE HCL 50 MG TAB PO SCH (10:32)
[2018-07-16] MEDS: DILTIAZEM HCL 60 MG TAB PO SCH ×4 (10:32→21:00)
[2018-07-16] MEDS: MEGACE 400MG/ 10ML CUP PO SCH (10:32)
[2018-07-16] MEDS: ASCORBIC ACID 500 MG TAB PO SCH ×2 (10:32→19:24)
[2018-07-16] MEDS: CYANOCOBALAMIN 1,000 MCG TAB PO SCH (10:32)
[2018-07-16] MEDS: APIXAB 2.5 MG TABLET PO SCH ×2 (10:32→19:24)
[2018-07-16] MEDS: CLONIDINE HCL 0.3 MG TAB PO SCH (10:32)
[2018-07-16] MEDS ORDERED: ONDANSETRON HCL INJ 2MG/ML 2ML 2 MG/ML VIAL IV PRN (17:30)
--- NOTE | 2018-07-16 17:43 | NUR ---
[facility] LEO TIM Nutrition Intervention Note RD Recommendation(s) for Physician: -Rec adding cardiac to ADA diet as medically appropriate -Rec Glucerna BID to promote protein-calorie intake -Rec MVi w/minerals, vitamin C, and zinc sulfate for wound healing -Continue appetite stimulant as ordered Plan of Care: RD following, monitoring for tolerance and adequacy, ONS rec Nutrition reason for involvement: Nutrition Risk Trigger MST RD Assessment 07/16 Chart reviewed. 77yo F, who was admitted from [facility] for PNA. Visited pt in the room. Pt reported poor appetite and decreased PO intake WOOD CALKER. Pt also reported unknown # of weight loss for long period of time. No complains of nausea or vomiting. LBM 2 days ago. No chewing or swallowing difficulty. Pt fell asleep during my interview; unable to obtain further hx. Stage IV pressure ulcer noted on admission. Will continue to monitor and follow. Principal Problems/Diagnoses: PNA PMH: Qddfb-cv-qfnednd diastolic CHF, chronic AFib, CAD with permanent pacemaker placement, hypertension, and diabetes. GI: LBM 07/16 Skin: Sacral Wound - Stage IV Pressure Ulcer - Present on Admission. Labs: No chemistry lab since 07/14 Meds: eliquis, megace, vitamin B12, vitamin C, lasix Ht: 69in Wt: 195lb BMI: 28.8kg/m2 IBW: 160lb Malnutrition Evaluation (date of eval) Poor historian, unable to assess level of malnutrition. Energy intake: Unable to determine Weight loss: Reported weight loss in unknown amount of time. Fat loss: N/A Muscle loss: N/A Supporting Evidence: Fluid accumulation: unable to evaluate Functional Status: unable to evaluate Nutrition Prescription (Diet Order): ADA diet Estimated Nutritional Needs: Calories: 1602 1780kcal (18-20kcal/kg/d) Weight used: current BW Protein: 89 134g (1-1.5g/kg/d) Weight used: current BW Diet Adequacy: Not meeting calorie needs, Not meeting protein needs Diet Education Needs Assessment: Diet education indicated, but patient not appropriate for education at this time. Nutrition Care Level: low Nutrition Diagnosis: Inadequate oral intake related to acute illness as evidenced by poor appetite and unknown weight loss. Goal: Patient will meet 75-100% of estimated needs by follow up Progress: N/A Interventions: Carbohydrate/mineral-modified diet, Commercial beverage, Multivitamin/mineral supplement therapy Monitoring/Evaluation: Total energy intake, Total protein intake, Prescription medication, Modified diet, Liquid supplement, Weight change Signed: Bruna Dodson, MS, RD, LD
[2018-07-16 18:57] LABS: BASOPHILS # (AUTO) 0.1 (0.0-0.1); BASOPHILS % 0.3 % (0.0-1.0); EOSINOPHILS % 0.2 % (0.0-6.0); HEMATOCRIT 27.7 % (34.2-44.1); HEMOGLOBIN 8.2 g/dL (12.0-16.0); LYMPHOCYTES # (AUTO) 1.1 (1.0-3.2); LYMPHOCYTES % 5.1 % (18.0-39.1); MEAN CORPUSCULAR HEMOGLOBIN 29.3 pg (28-32); MEAN CORPUSCULAR HGB CONC 29.6 g/dL (31-35); MEAN CORPUSCULAR VOLUME 98.9 fL (81-99); MONOCYTES % 4.5 % (4.4-11.3); NEUTROPHILS # (AUTO) 18.2 (2.1-6.9); NEUTROPHILS % 85.3 % (38.7-80.0); PLATELET COUNT 150 x10e3/uL (140-360); RED CELL DISTRIBUTION WIDTH 18.9 % (11.7-14.4)
[2018-07-16 19:17] LABS: ALBUMIN 2.4 g/dL (3.5-5.0); ALBUMIN/GLOBULIN RATIO 0.6 (0.8-2.0); ANION GAP 17.8 mmol/L (8-16); CALCIUM 9.4 mg/dL (8.4-10.2); CREATININE, SERUM 3.78 mg/dL (0.57-1.11)
[2018-07-16 19:26] LABS: POTASSIUM 6.8 mmol/L (3.5-5.1)
[2018-07-16] MEDS ORDERED: SODIUM BICARBONATE 8.4% INJ 50 ML SYR IV STA ×2 (19:50→22:51)
[2018-07-16] MEDS ORDERED: DEXTROSE 50% SYRINGE 50 ML IV STA (19:50)
[2018-07-16] MEDS ORDERED: SOD POLYSTYRENE SULFONATE SUSP 15 GM/60 ML BTL PO ONE (20:00)
[2018-07-16] MEDS ORDERED: MEROPENEM 1GM 100 ML IV SCH (20:00)
[2018-07-16] MEDS ORDERED: INSULIN REGULAR, HUMAN 100 UNIT/1 ML 3ML VIAL IV ONE (20:00)
[2018-07-16] MEDS ORDERED: SODIUM CHLORIDE 0.9% 1000ML 1,000 ML IV SCH (20:00)
--- NOTE | 2018-07-16 20:00 | NUR ---
Dr. Mac at bedside giving orders.
--- NOTE | 2018-07-16 20:15 | NUR ---
Dr. Mac placed central line to L IJ. Addendum: 07/17/18 at 0630 by Pretty Brown RN PLACED AT 2200
[2018-07-16] MEDS ORDERED: CALCIUM GLUCONATE 10% INJ 4.65 MEQ in SODIUM CHLORIDE 0.9% 50ML 50 ML IV ONE (20:20)
[2018-07-16 20:47] LABS: HYPOCHROMASIA SLIGHT; LYMPHOCYTES % (MANUAL) 6 % (19-48); MONOCYTES % (MANUAL) 3 % (3.4-9.0); NEUTROPHILS % (MANUAL) 90 % (40-74); NUCLEATED RED BLOOD CELLS 2; PLATELET ESTIMATE ADEQUATE; PLATELET MORPHOLOGY COMMENT NORMAL; RBC MORPHOLOGY COMMENT NORMAL
[2018-07-16] MEDS: OLANZAPINE 5 MG TAB PO SCH (21:00)
[2018-07-16 21:37] LABS: ABG PH 7.25 (7.31-7.41)
[2018-07-16 21:38] LABS: ABG HCO3 17 mmol/L (23-28); ABG PCO2 38 mmHg (41-51); ABG PO2 77 mmHg (80-105)
[2018-07-16] MEDS ORDERED: SODIUM BICARBONATE 8.4% SYRING 50 ML ONE (21:50)
--- NOTE | 2018-07-16 22:04 | Diagnostic Imaging Report ---
EXAMINATION: CHEST SINGLE (PORTABLE) INDICATION: chf COMPARISON: Chest x-ray 07/14/2018 FINDINGS: AP view TUBES and LINES: Left chest wall cardiac device. LUNGS: Slight decrease in multifocal airspace opacities, most prominent in the right upper lobe. PLEURA: Small left probable effusion. Trace fluid in the right minor fissure. No pneumothorax. HEART AND MEDIASTINUM: Stable mild enlargement of the cardiac silhouette. Aortic calcifications. Enlarged pulmonary arteries suggesting pulmonary hypertension. BONES AND SOFT TISSUES: No acute osseous lesion. Soft tissues are unremarkable. UPPER ABDOMEN: No free air under the diaphragm. IMPRESSION: Slight decrease in multifocal airspace opacities concerning for pneumonia and/or edema. Signed by: DR. Aden Hodge MD on 07/16/2018 10:01 PM
--- NOTE | 2018-07-16 22:23 | NUR ---
Read ABG results and CXR results to Dr. Figueroa. ordered to place patient back on bipap and sit patient up. No further orders received.
[2018-07-16] MEDS ORDERED: DEXTROSE 10% 1,000 ML IV ONE (22:30)
[2018-07-16] MEDS ORDERED: DEXTROSE 50% IV ONE ×4 (22:30)
[2018-07-16] MEDS ORDERED: SODIUM BICARBONATE 8.4% IV ONE ×4 (22:30)
[2018-07-16] MEDS ORDERED: DEXTROSE 50% SYRINGE 50 ML IV ONE (22:30)
[2018-07-16] MEDS ORDERED: [UNRECOGNIZED DRUG - OTHER] IV ONE ×4 (22:30)
[2018-07-16] MEDS ORDERED: INSULIN REGULAR IV ONE ×4 (22:30)
[2018-07-16] MEDS ORDERED: SODIUM BICARBONATE 8.4% SYRING 100 ML ONE (22:30)
--- NOTE | 2018-07-16 22:30 | NUR ---
Dr. Yun notified of concern for sepsis, pt condition, lab results, increase in AST/ALT. Orders received to change ABX, transfer to ICU when bed available, STAT liver US.
[2018-07-16] MEDS ORDERED: LEVOFLOXACIN 500MG/D5W 100ML 100 ML IV SCH (22:45)
--- NOTE | 2018-07-16 22:52 | Diagnostic Imaging Report ---
EXAMINATION: CHEST SINGLE (PORTABLE) INDICATION: Central line placement COMPARISON: Chest x-ray 07/16/2018 at 8:39 PM FINDINGS: AP view TUBES and LINES: Interval placement of left IJ central catheter with tip projecting over the expected brachiocephalic confluence. Left chest wall cardiac device. LUNGS: Stable multifocal airspace opacities. PLEURA: Stable small left pleural effusion. No pneumothorax. HEART AND MEDIASTINUM: Stable enlargement of the cardiac silhouette. BONES AND SOFT TISSUES: No acute osseous lesion. Soft tissues are unremarkable. UPPER ABDOMEN: No free air under the diaphragm. IMPRESSION: Interval placement of left IJ central catheter with tip projecting over the expected brachiocephalic confluence. No pneumothorax. Stable multifocal airspace opacities concerning for pneumonia and/or edema. Signed by: DR. Aden Hodge MD on 07/16/2018 10:49 PM
--- NOTE | 2018-07-16 23:00 | NUR ---
Updated Dr. Jose M Castillo on patient condition, orders, and lab results. Order received to consult Dr. Georgi Castillo.
[2018-07-16 23:08] LABS: ALBUMIN 2.2 g/dL (3.5-5.0); ALBUMIN/GLOBULIN RATIO 0.6 (0.8-2.0); ANION GAP 19.6 mmol/L (8-16); CALCIUM 8.9 mg/dL (8.4-10.2); CREATININE, SERUM 3.72 mg/dL (0.57-1.11)
[2018-07-16 23:08] LABS: ABG HCO3 19 mmol/L (23-28); ABG PCO2 49 mmHg (41-51); ABG PH 7.18 (7.31-7.41); ABG PO2 68 mmHg (80-105)
[2018-07-16] MEDS ORDERED: SODIUM CHLORIDE 0.9% 250ML 250 ML ONE (23:12)
[2018-07-16 23:13] LABS: POTASSIUM 6.6 mmol/L (3.5-5.1)
[2018-07-16 23:28] LABS: ABG PCO2 54 mmHg (41-51); ABG PH 7.26 (7.31-7.41)
[2018-07-16 23:29] LABS: ABG HCO3 24 mmol/L (23-28); ABG PO2 88 mmHg (80-105)
[2018-07-17] VITALS (28 sets, daily range): BP systolic 85–144; BP diastolic 57–85
--- NOTE | 2018-07-17 | NUR ---
Dr. Mac still at bedside monitoring patient and giving orders.
[2018-07-17] MEDS ORDERED: FUROSEMIDE INJ 10 MG/ML 10 ML VIAL IV ONE ×3 (00:15→09:45)
[2018-07-17] MEDS ORDERED: FUROSEMIDE INJ 10 MG/ML 4 ML VIAL ONE (00:17)
--- NOTE | 2018-07-17 00:23 | Diagnostic Imaging Report ---
EXAM: Liver Ultrasound INDICATION: Elevated LFTs. COMPARISON: None. TECHNIQUE: Transverse and longitudinal images of the liver were obtained. FINDINGS: Limited evaluation secondary to limited breath holding as patient on BiPAP and superior positioning of the liver with limited acoustic window through the ribs. Liver: Size: 15.9 cm in the right midclavicular line, normal Appearance: Normal echogenicity, smooth contour Mass: No focal masses Gallbladder: Stones/Sludge: None Wall: 0.6 cm, thickened likely secondary to contraction Appearance: Contracted. No pericholecystic fluid or hydrops. Sonographic Aleman's Sign: Negative Bile Ducts: Intrahepatic Ducts: No dilatation Extrahepatic Ducts: Common bile duct measures 0.4 cm, no dilatation Pancreas: Incompletely visualized due to overlying bowel gas, but no abnormality identified involving the visualized portions of the pancreas. Right Kidney: Size: 11.2 cm Echogenicity: Normal Parenchymal thickness: Normal Collecting system: No hydronephrosis Stones: None Cyst/Mass: None Vessels: Aorta: Visualized portions are normal Inferior Vena Cava: Visualized portions are normal Main Portal Vein: 1.1 cm, normal size with hepatopetal flow. Free Fluid: No ascites or pleural effusion IMPRESSION: Partially limited exam secondary to limited breath holding and acoustic window. Otherwise, unremarkable right upper quadrant ultrasound. Signed by: DR. Aden Hodge MD on 07/17/2018 12:19 AM
[2018-07-17] MEDS ORDERED: SOD POLYSTYRENE SULFONATE SUSP 15 GM/60 ML BTL PO ONE (00:45)
[2018-07-17] MEDS ORDERED: LACTULOSE SYRUP 20 GM/30 ML UDC PO ONE (00:45)
[2018-07-17] MEDS: METOPROLOL TARTRATE 50 MG TAB PO SCH ×3 (01:00→17:00)
--- NOTE | 2018-07-17 01:38 | Consultation ---
DATE OF CONSULTATION: Pulmonary Critical Care Consultation CHIEF COMPLAINT: Pulmonary infiltrates, worsening dyspnea, and worsening mental status. HISTORY OF PRESENT ILLNESS: The patient is a 77-year-old resident of a nursing facility. She has history of renal insufficiency and congestive heart failure. She was brought to the emergency department two days ago for worsening dyspnea as well as congestion. Today, she has been less animated according to the nurse and more difficult to arouse. PAST MEDICAL HISTORY: 1. Renal insufficiency. 2. Systolic congestive heart failure. 3. Atrial fibrillation. 4. Diabetes. 5. Hypertension. PAST SURGICAL HISTORY: 1. Status post pacemaker and AICD. 2. Status post debridement of a sacral decubitus ulcer. ALLERGIES: NO KNOWN DRUG ALLERGIES. FAMILY HISTORY: Family history is significant for diabetes and hypertension. SOCIAL HISTORY: The patient lives in a nursing facility. She has never smoked and she does not use alcohol. REVIEW OF SYSTEMS: She has no fever. She is less responsive according to the nurse. She is not having neck pain. There was no reported chest pain. She has some dyspnea and congestion. There is no abdominal pain. She has no nausea or vomiting. There is no leg edema. She does have a sacral decubitus wound. PHYSICAL EXAMINATION: VITAL SIGNS: The blood pressure is 114/84 and the pulse is 93. Saturation is 94% on 3 L. HEENT: Shows no facial swelling or erythema. The nasal mucosa is normal. The oropharynx is normal. LYMPHATIC: Shows no submandibular, cervical, or supraclavicular adenopathy. CARDIAC: Reveals a regular rate and rhythm with normal S1 and S2. LUNGS: Auscultation of lungs reveal decreased breath sounds. ABDOMEN: Soft, nontender. There is no rebound or guarding. EXTREMITIES: Shows no leg edema or calf tenderness. : Examination of the sacrum shows 2 separate small decubitus ulcerations. NEUROLOGIC: Shows the patient to be difficult to arouse, but does respond to noxious stimuli. LABORATORY DATA: The sodium is 142 and the potassium is 5.2. The UFK-ie-axzlkxsfye ratio is 56 to 2.89. The BNP is 3983. The albumin is 2.6. The liver function tests are within normal limits. The white blood cell count is 15.3 and the hemoglobin is 8.7. The platelet count is 152. Blood gases, 7.31, 38, 92, and 19. RADIOGRAPHIC DATA: Chest x-ray shows multifocal airspace opacities as well as cardiomegaly. Urinalysis shows pyuria and the urine culture shows 2 species of gram-negative bacillus with greater than 100,000 bacteria. IMPRESSION: 1. Urinary tract infection with severe sepsis, present on admission. 2. Multifocal pneumonia. 3. Jktdd-xh-jhwbfzu respiratory failure. 4. Bprxx-ar-inslcul kidney injury. 5. Chronic systolic congestive heart failure. 6. Paroxysmal atrial fibrillation. 7. Sacral decubitus ulcers. PLAN: 1. The patient will be roland-cultured and started on appropriate antibiotics. A consultation from Infectious Disease is pending. 2. Repeat ABG now. 3. BiPAP as needed. 4. Treatment of decubitus ulcer. 5. Nephrology evaluation is pending. 6. Echocardiogram. Fidel Figueroa MD [facility] /[id number]
--- NOTE | 2018-07-17 02:00 | NUR ---
Notified Dr. Georgi Castillo of consult.
--- NOTE | 2018-07-17 03:24 | Diagnostic Imaging Report ---
EXAM: ABDOMEN-1VIEW (KUB) DATE: 07/17/2018 1:44 AM INDICATION: NG tube placement COMPARISON: None FINDINGS: LINES/TUBES: Nasogastric tube tip and sidehole projects over the gastric body. Partially visualized cardiac leads. BOWEL PATTERN: No evidence for obstruction. SOFT TISSUES: No abnormal calcifications. No mass effect. LUNG BASES: Multifocal airspace opacities. BONES: No acute findings. IMPRESSION: Nasogastric tube tip projects over the gastric body. Signed by: DR. Aden Hodge MD on 07/17/2018 3:20 AM
[2018-07-17] MEDS ORDERED: DIATRIZOATE MEGL/DIATRIZOA SOD 30 ML BTL PO ONE (04:02)
[2018-07-17 05:07] LABS: BASOPHILS % 0.2 % (0.0-1.0); EOSINOPHILS % 0.1 % (0.0-6.0); HEMATOCRIT 24.9 % (34.2-44.1); HEMOGLOBIN 7.3 g/dL (12.0-16.0); LYMPHOCYTES # (AUTO) 0.5 (1.0-3.2); LYMPHOCYTES % 4.2 % (18.0-39.1); MEAN CORPUSCULAR HEMOGLOBIN 28.4 pg (28-32); MEAN CORPUSCULAR HGB CONC 29.3 g/dL (31-35); MEAN CORPUSCULAR VOLUME 96.9 fL (81-99); MONOCYTES # (AUTO) 0.5 (0.2-0.8); MONOCYTES % 4.1 % (4.4-11.3); NEUTROPHILS # (AUTO) 10.8 (2.1-6.9); NEUTROPHILS % 86.2 % (38.7-80.0); PLATELET COUNT 110 x10e3/uL (140-360); RED BLOOD COUNT 2.57 x10e6/uL (3.6-5.1); RED CELL DISTRIBUTION WIDTH 19.1 % (11.7-14.4)
[2018-07-17 05:46] LABS: ALBUMIN 2.1 g/dL (3.5-5.0); ALBUMIN/GLOBULIN RATIO 0.6 (0.8-2.0); ANION GAP 16.6 mmol/L (8-16); CALCIUM 8.7 mg/dL (8.4-10.2); CREATININE, SERUM 3.83 mg/dL (0.57-1.11); POTASSIUM 4.6 mmol/L (3.5-5.1)
--- NOTE | 2018-07-17 06:23 | NUR ---
Dr. Yun paged at [phone] regarding critical lactic acid. Dr. Castillo paged at [phone] regarding critical glucose and decrease of hemoglobin.
[2018-07-17] MEDS: INSULIN REGULAR, HUMAN 100 UNIT/1 ML 3ML VIAL SQ SCH ×3 (06:47→17:00)
[2018-07-17 07:53] LABS: ABG PCO2 67 mmHg (41-51); ABG PH 7.21 (7.31-7.41); ABG PO2 135 mmHg (80-105)
[2018-07-17 07:54] LABS: ABG HCO3 27 mmol/L (23-28)
--- NOTE | 2018-07-17 08:15 | NUR ---
PT FOUND WITH WORSENING AMS AND ABG'S CODE SEPSIS CALLED. ER MD IN ROOM.
[2018-07-17 08:21] LABS: EOSINOPHILS % (MANUAL) 3 % (0-7); LYMPHOCYTES % (MANUAL) 5 % (19-48); MONOCYTES % (MANUAL) 2 % (3.4-9.0); NEUTROPHILS % (MANUAL) 90 % (40-74)
[2018-07-17 08:22] LABS: PLATELET ESTIMATE SLIGHTLY DECREASED; PLATELET MORPHOLOGY COMMENT FEW EDTA CLUMPING; RBC MORPHOLOGY COMMENT NORMAL
[2018-07-17] MEDS ORDERED: [UNRECOGNIZED DRUG - OTHER] IV SCH ×4 (08:30)
[2018-07-17] MEDS ORDERED: SODIUM BICARBONATE 8.4% IV SCH ×4 (08:30)
[2018-07-17] MEDS: SODIUM CHLORIDE 0.9% 1000ML 3,000 ML IV SCH ×2 (08:30→09:30)
[2018-07-17] MEDS ORDERED: DEXTROSE 50% IV SCH ×4 (08:30)
[2018-07-17] MEDS ORDERED: INSULIN REGULAR IV SCH ×4 (08:30)
--- NOTE | 2018-07-17 08:30 | NUR ---
1ST L FLUID BOLUS STARTED
[2018-07-17] MEDS ORDERED: SODIUM CHLORIDE 0.9% 1000ML 1,000 ML ONE (08:35)
--- NOTE | 2018-07-17 08:45 | NUR ---
PT INTUBATED AT THIS TIME OG TUBE IN PLACE WELL
[2018-07-17] MEDS ORDERED: SODIUM CHLORIDE 0.9% 1000ML 2,000 ML ONE (08:53)
[2018-07-17] MEDS ORDERED: PIPER-TAZ 3.375 GM 50 ML IV SCH (09:00)
[2018-07-17] MEDS ORDERED: MIDAZOLAM HCL 25 MG in DEXTROSE 5% 50ML 45 ML IV PRN (09:00)
[2018-07-17] MEDS: CYANOCOBALAMIN 1,000 MCG TAB PO SCH (09:00)
[2018-07-17] MEDS: CLONIDINE HCL 0.3 MG TAB PO SCH (09:00)
[2018-07-17] MEDS ORDERED: VANCOMYCIN 1GM/NS 250 ML 250 ML IV SCH (09:00)
[2018-07-17] MEDS: ASPIRIN 81 MG ENTERIC COATED PO SCH (09:00)
[2018-07-17] MEDS: MEGACE 400MG/ 10ML CUP PO SCH (09:00)
[2018-07-17 09:26] LABS: INR 2.76; PROTHROMBIN TIME 29.9 seconds (11.9-14.5)
[2018-07-17 09:27] LABS: BILIRUBIN,DIRECT 0.4 mg/dL (0.0-0.5)
[2018-07-17] MEDS: FENTANYL CITRATE INJ 2,000 MCG in SODIUM CHLORIDE 0.9% 250ML 210 ML IV PRN ×2 (09:30→20:52)
[2018-07-17 09:35] LABS: PARTIAL THROMBOPLASTIN TIME 35.1 seconds (23.8-35.5)
--- NOTE | 2018-07-17 09:40 | Diagnostic Imaging Report ---
EXAMINATION: CHEST SINGLE (PORTABLE) INDICATION: Intubated. COMPARISON: Chest radiograph 07/16/2018. FINDINGS: TUBES and LINES: Interval intubation. The endotracheal tube terminates 5.1 cm above the juanito. Left IJ non tunneled central line terminates at the expected location of the brachiocephalic confluence. Left-sided pacemaker device with leads in unchanged position. LUNGS: Interval improvement of bilateral upper lung zone predominant opacities. Slightly improved left retrocardiac opacity. There is central vascular congestion. PLEURA: Persistent small left pleural effusion. HEART AND MEDIASTINUM: The cardiomediastinal silhouette is unchanged and mildly enlarged. Atherosclerotic calcifications of the aortic arch. BONES AND SOFT TISSUES: No acute osseous abnormality. UPPER ABDOMEN: No free air under the diaphragm. IMPRESSION: Interval intubation. No evidence of pneumothorax. Interval improvement of multifocal upper lung zone predominant opacities, which may reflect improved edema or pneumonia. Signed by: Dr. Sonu Keith MD on 07/17/2018 9:37 AM
[2018-07-17] MEDS ORDERED: SODIUM CHLORIDE 0.9% 250ML 250 ML IV ONE (09:45)
--- NOTE | 2018-07-17 09:45 | NUR ---
DR HUSSEIN INTUBATED PT,PLACED PT ON VENT MODE PRVC 550/16/5/100%
[2018-07-17 10:01] LABS: ABG HCO3 25 mmol/L (23-28); ABG PCO2 41 mmHg (41-51); ABG PH 7.39 (7.31-7.41); ABG PO2 421 mmHg (80-105)
--- NOTE | 2018-07-17 10:14 | Diagnostic Imaging Report ---
EXAM: ABDOMEN-1VIEW (KUB) INDICATION: NG tube placement. COMPARISON: KUB 07/17/2018. FINDINGS: Nasogastric tube has been slightly retracted, now terminates in the proximal stomach with the side port near the GE junction. Exam limited by portable technique. No specific evidence of bowel obstruction. No acute osseous abnormality. Degenerative changes of the lower lumbar spine. IMPRESSION: Interval partial retraction of nasogastric tube, now terminating in the proximal stomach with the side port near the GE junction. Suggest advancement by approximately 4 cm. The above findings were discussed with DEJAN La on 07/17/2018 at 10:04 AM, who responded indicating that the communication was understood. Signed by: Dr. Sonu Keith MD on 07/17/2018 10:10 AM
[2018-07-17] MEDS ORDERED: SUCCINYLCHOLINE 200 MG/10 ML SYR ONE (11:10)
[2018-07-17] MEDS ORDERED: ETOMIDATE 40 MG/ 20ML VIAL IV ONE (11:10)
[2018-07-17] MEDS ORDERED: DEXTROSE 50% SYRINGE 50 ML IV PRN (11:30)
--- NOTE | 2018-07-17 12:43 | Diagnostic Imaging Report ---
EXAM: ABDOMEN-1VIEW (KUB) INDICATION: Evaluate enteric tube position. COMPARISON: KUB 07/17/2018 at 859 AM. FINDINGS: Interval advancement of enteric tube, which terminates overlying the gastric body with the side port below the GE junction. Exam limited by portable technique. No specific evidence of bowel obstruction. No acute osseous abnormality. Please refer to same day chest radiograph for details of intrathoracic findings. IMPRESSION: Interval advancement of enteric tube, which terminates overlying the gastric body with the side port below the GE junction. Signed by: Dr. Sonu Keith MD on 07/17/2018 12:39 PM
[2018-07-17] MEDS ORDERED: SODIUM CHLORIDE 0.9% 250ML 250 ML ONE ×2 (12:49→18:13)
[2018-07-17] MEDS: DILTIAZEM HCL 60 MG TAB PO SCH ×4 (13:00→21:47)
[2018-07-17] MEDS: APIXAB 2.5 MG TABLET PO SCH ×2 (13:35→17:44)
[2018-07-17] MEDS: SERTRALINE HCL 50 MG TAB PO SCH (13:36)
[2018-07-17] MEDS: ASCORBIC ACID 500 MG TAB PO SCH ×2 (13:36→17:44)
[2018-07-17] MEDS: NYSTATIN 15 GM POWDER UD BTL TOP SCH ×2 (13:36→17:44)
--- NOTE | 2018-07-17 15:11 | NUR ---
Follow-up Note RD Recommendation(s) for Physician: - Rec to initiate continuous TF of Vital AF 1.2 @25mL/hr and advance as tolerated to goal rate of 55mL/hr, providing 1584kcal, 99g protein, 1070mL water. - Rec free water flushes of 30mL q 4hr; additional per MD discretion - Rec MVi w/minerals x1 daily, vitamin C 550mg x1 daily, and zinc sulfate 220mg x1 daily to support healing of stage IV pressure ulcer - Check daily labs, weight, and GI tolerance Plan of Care: RD following, monitoring for tolerance and adequacy, TF rec Nutrition reason for involvement: RN consult no reason stated RD Assessment 07/17 Pt was intubated, sedated, and placed on vent this AM. No pressor meds noted. Worsening renal function. Lactic acid was elevated. BG running between 200 400; insulin in place. Enteric tube was placed. Communicated TF rec with RN. Will continue to monitor and follow. 07/16 Chart reviewed. 77yo F, who was admitted from [facility] for PNA. Visited pt in the room. Pt reported poor appetite and decreased PO intake [employer]. Pt also reported unknown # of weight loss for long period of time. No complains of nausea or vomiting. LBM 2 days ago. No chewing or swallowing difficulty. Pt fell asleep during my interview; unable to obtain further hx. Stage IV pressure ulcer noted on admission. Will continue to monitor and follow. Principal Problems/Diagnoses: PNA PMH: Eklcb-fd-pfbmfia diastolic CHF, chronic AFib, CAD with permanent pacemaker placement, hypertension, and diabetes. GI: abdomen soft, non-tender, liquid brown stool, LBM 07/16 Skin: Sacral Wound - Stage IV Pressure Ulcer - Present on Admission. Labs: (07/17) Na 147 H, BUN 71 H, Creatinine 3.83 H, glucose 213 H Meds: vitamin C, eliquis, insulin, vancomycin, NaCl, fentanyl Ht: 69in Wt: 195lb; 210lb BMI: 28.8kg/m2 IBW: 160lb Malnutrition Evaluation (date of eval) Poor historian, unable to assess level of malnutrition. Energy intake: Unable to determine Weight loss: Reported weight loss in unknown amount of time. Fat loss: N/A Muscle loss: N/A Supporting Evidence: Fluid accumulation: unable to evaluate Functional Status: unable to evaluate Nutrition Prescription (Diet Order): NPO Estimated Nutritional Needs: Calories: 1453 - 1650kcal (22-25kcal/kg/d) Weight used: IBW Protein: 99 - 165g (1.5-2.5g/kg/d) Weight used: current IBW Diet Adequacy: Not meeting calorie needs, Not meeting protein needs Diet Education Needs Assessment: Diet education indicated, but patient not appropriate for education at this time. Nutrition Care Level: high (New TF) Nutrition Diagnosis: Inadequate oral intake related to acute illness as evidenced by pt requiring EN as main source of nutrition. Goal: Patient will meet 75-100% of estimated needs by follow up Progress: N/A Interventions: Tube feeding Monitoring/Evaluation: Total energy intake, Total protein intake, Weight change, labs, GI tolerance Signed: Bruna Dodson MS, RD, LD
--- NOTE | 2018-07-17 17:15 | Progress Note ---
DATE: Pulmonary Critical Care Progress Note SUBJECTIVE: The patient remained on BiPAP overnight. She received antibiotics, but still had somnolence this morning. She continued to have a respiratory acidosis and was subsequently intubated. She is now on the ventilator in the intensive care unit. PHYSICAL EXAMINATION: VITAL SIGNS: The patient is on assist control of 16 with a tidal volume of 450 and an FiO2 of 45%. The PEEP is set at 5 and the rate is set at 16. The blood pressure is 117/74 and the pulse is 97. HEENT: No facial swelling or erythema. There is an oral endotracheal tube in place. There is a left IJ line. The site looks clean. There is no drainage. CARDIAC: Regular rate and rhythm with a normal S1, S2. There are no murmurs or rubs. LUNGS: Auscultation of lungs shows decreased breath sounds at the bases. There is no wheezing. ABDOMEN: Soft, nontender. There is no rebound or guarding. EXTREMITIES: There is no leg edema or calf tenderness. There is no cyanosis or clubbing. SKIN: No rashes. NEUROLOGIC: The patient to be sedated. LABORATORY DATA: White blood cell count is 12.5 and the hemoglobin is 7.3. The platelet count is 110. The AST is 875 and the ALT is 1121. The IAZ-nj-dssxgmikgv ratio is 71 to 3.83. The blood sugar is elevated at 376. RADIOGRAPHIC DATA: Chest x-ray shows upper lobe opacities, possibly reflecting pneumonia. IMPRESSION: 1. Wrqrd-jt-ahkdnns hypercapnic respiratory failure. 2. Multifocal pneumonia. 3. Urinary tract with severe sepsis, present on admission. 4. Govev-cf-jqcssis kidney injury. 5. Chronic systolic congestive heart failure. 6. Paroxysmal atrial fibrillation. 7. Sacral decubitus ulcers. 8. Anemia, unspecified. PLAN: 1. The patient is receiving packed red blood cells. 2. Decrease the tidal volume to 6-7 mL/kg. 3. Wean oxygen as tolerated. 4. Continue current antibiotics. 5. The patient is being followed by Nephrology. 6. Avoid Versed in the patient with renal failure because of possible prolonged sedation. 7. Case discussed with nursing staff on IMCU and in the ICU. 8. Case discussed with Dr. Mateusz Castillo. 9. Greater than 35 minutes in direct critical care time. MD SHAUN Nielsen/MIGUEL /[id number]
[2018-07-17 17:37] LABS: BASOPHILS % 0.2 % (0.0-1.0); EOSINOPHILS # (AUTO) 0.2 (0.0-0.4); HEMATOCRIT 25.2 % (34.2-44.1); HEMOGLOBIN 7.7 g/dL (12.0-16.0); LYMPHOCYTES # (AUTO) 0.7 (1.0-3.2); LYMPHOCYTES % 5.7 % (18.0-39.1); MEAN CORPUSCULAR HEMOGLOBIN 28.8 pg (28-32); MEAN CORPUSCULAR HGB CONC 30.6 g/dL (31-35); MEAN CORPUSCULAR VOLUME 94.4 fL (81-99); MONOCYTES # (AUTO) 0.5 (0.2-0.8); NEUTROPHILS # (AUTO) 9.8 (2.1-6.9); NEUTROPHILS % 83.7 % (38.7-80.0); PLATELET COUNT 118 x10e3/uL (140-360); RED BLOOD COUNT 2.67 x10e6/uL (3.6-5.1); RED CELL DISTRIBUTION WIDTH 18.2 % (11.7-14.4)
[2018-07-17 18:02] LABS: ALBUMIN 1.9 g/dL (3.5-5.0); ALBUMIN/GLOBULIN RATIO 0.6 (0.8-2.0); ANION GAP 14.3 mmol/L (8-16); CREATININE, SERUM 3.48 mg/dL (0.57-1.11); POTASSIUM 3.3 mmol/L (3.5-5.1)
--- NOTE | 2018-07-17 18:31 | Consultation ---
DATE OF CONSULTATION: REASON FOR CONSULTATION: Sepsis, septic shock. HISTORY OF PRESENT ILLNESS: This patient who is a 77-year-old from a assisted with underlying history of renal insufficiency, congestive heart failure exacerbation, diabetes mellitus, hypertension, obesity, status post pacemaker, status post AICD, status post debridement of sacral decubitus ulcer, comes into the emergency room on 07/15/2018 with altered mental status. The patient was admitted. She was diagnosed with sepsis on admission, pneumonia, and UTI and I was asked to see her. The patient deteriorated overnight last night, currently intubated. There is no family to interview. PAST MEDICAL HISTORY: As above. PAST SURGICAL HISTORY: As above. ALLERGIES: NKA. SOCIAL HISTORY: From assisted. FAMILY HISTORY: Could not be obtained. REVIEW OF SYSTEMS: Could not be obtained. LABORATORY DATA: On admission, white count 15.27, went up to 21, today 12.58; hemoglobin 8.7; platelets 152, came down to 110. Her sodium 147, potassium 4.6, creatinine 3.83. Her BNP is 3983. Her AST 837 and ALT 1021. When I received the cultures, I ordered a stat ultrasound of liver, which showed limited examination, but it was unremarkable ultrasound. Ordered a CT for this morning, but found the patient is intubated. The patient is currently on Zosyn, vancomycin, levofloxacin, and meropenem. Her urine showed Klebsiella pneumoniae. PHYSICAL EXAMINATION: GENERAL: She is currently intubated and sedated. VITAL SIGNS: Stable. HEENT: She is normocephalic. NECK: Supple. CHEST: Few crackles. COR: S1 and S2. ABDOMEN: Soft, obese. IMPRESSION: 1. Sepsis on admission, getting progressively worse, now with respiratory failure. 2. Acute kidney injury with chronic kidney disease. PLAN: From Infectious Disease point of view, we will get blood cultures. CT of abdomen and pelvis, when she stable. Continue meropenem. Continue Levaquin. Discontinue Zosyn. Discontinue vancomycin. She received one dose. We will follow. Further recommendations pending clinical progress. MD MAZIN Baumann/MIGUEL /[id number]
[2018-07-17] MEDS: SODIUM CHLORIDE 0.45% 1,000 ML IV SCH (18:50)
[2018-07-17] MEDS ORDERED: MEROPENEM 1GM 100 ML IV SCH (20:00)
[2018-07-17] MEDS: OLANZAPINE 5 MG TAB PO SCH (21:47)
[2018-07-17] MEDS: LORAZEPAM INJ 2 MG/ML VIAL IV PRN (21:47)
[2018-07-17] MEDS: MEROPENEM 500MG/ NS 50ML 50 ML IV SCH (22:50)
[2018-07-17] MEDS ORDERED: MEROPENEM 500MG/ NS 50ML BAG IV SCH (23:00)
[2018-07-18] VITALS (26 sets, daily range): BP systolic 90–141; BP diastolic 58–112
[2018-07-18] MEDS: METOPROLOL TARTRATE 50 MG TAB PO SCH ×3 (01:00→17:00)
[2018-07-18] MEDS: LORAZEPAM INJ 2 MG/ML VIAL IV PRN ×2 (02:35→20:53)
--- NOTE | 2018-07-18 04:50 | Diagnostic Imaging Report ---
EXAM: CT Abdomen and Pelvis WITHOUT contrast INDICATION: Abn Liver Enzymes - Abdomen with Oral Contrast COMPARISON: Right upper quadrant ultrasound 07/16/2018 TECHNIQUE: Abdomen and pelvis were scanned utilizing a multidetector helical scanner from the lung base to the pubic symphysis without administration of IV contrast. Absence of intravenous contrast decreases sensitivity for detection of focal lesions and vascular pathology. Coronal and sagittal reformations were obtained. Routine protocol was performed. IV CONTRAST: None ORAL CONTRAST: Gastrografin COMPLICATIONS: None RADIATION DOSE: Total DLP: 854.73 mGy*cm Estimated effective dose: (DLP x 0.015 x size factor) mSv Dose modulation, iterative reconstruction, and/or weight based adjustment of the mA/kV was utilized to reduce the radiation dose to as low as reasonably achievable. FINDINGS: LINES and TUBES: Nasogastric/orogastric tube tip in the gastric body. Su catheter within the bladder. LOWER THORAX: Cardiomegaly. Small bilateral pleural effusions with adjacent atelectasis. Coronary artery calcifications. Right atrial and ventricular cardiac leads. HEPATOBILIARY: No focal hepatic lesions. No biliary ductal dilation. GALLBLADDER: Sludge. No radio-opaque stones. No wall thickening. SPLEEN: No splenomegaly. PANCREAS: Atrophic. No focal masses or ductal dilatation. ADRENALS: No adrenal nodules KIDNEYS/URETERS: No hydronephrosis. Left inferior pole 2.4 cm lesion measures 31 Hounsfield units. No stones. GI TRACT: Left lower quadrant diverting colostomy with parastomal herniation of fat. No abnormal distention, wall thickening, or evidence of bowel obstruction. PELVIC ORGANS/BLADDER: Su catheter within the collapsed bladder. LYMPH NODES: No lymphadenopathy. VESSELS: Diffuse vascular calcifications. No abdominal aortic aneurysm. PERITONEUM / RETROPERITONEUM: Small amount of fluid in the pelvis. No free air. BONES: Right femoral intramedullary amira. Diffuse osseous demineralization. No acute osseous abnormalities. SOFT TISSUES: Fat-containing umbilical hernia with sac measuring 7.2 cm and neck measuring 2.5 cm in transverse dimension. Anasarca. Skin thickening adjacent to the sacrum with adjacent possible wound dressing which may suggest decubitus ulcer. IMPRESSION: 1. Gallbladder sludge without evidence of acute cholecystitis. 2. Indeterminate left renal 2.4 cm lesion, possibly hemorrhagic/proteinaceous cyst although mass not excluded. Consider further evaluation with renal ultrasound. 3. Left lower quadrant diverting colostomy. 4. Skin thickening adjacent to the sacrum with possible adjacent dressing which may suggest decubitus ulcer. Correlation recommended. 5. Small bilateral pleural effusions. Anasarca. Signed by: DR. Aden Hodge MD on 07/18/2018 4:46 AM
[2018-07-18 05:03] LABS: BASOPHILS % 0.2 % (0.0-1.0); EOSINOPHILS # (AUTO) 0.4 (0.0-0.4); EOSINOPHILS % 3.6 % (0.0-6.0); HEMATOCRIT 31.2 % (34.2-44.1); HEMOGLOBIN 9.5 g/dL (12.0-16.0); LYMPHOCYTES # (AUTO) 0.9 (1.0-3.2); MEAN CORPUSCULAR HEMOGLOBIN 28.6 pg (28-32); MEAN CORPUSCULAR HGB CONC 30.4 g/dL (31-35); MONOCYTES # (AUTO) 0.6 (0.2-0.8); MONOCYTES % 4.5 % (4.4-11.3); NEUTROPHILS % 81.6 % (38.7-80.0); PLATELET COUNT 121 x10e3/uL (140-360); RED BLOOD COUNT 3.32 x10e6/uL (3.6-5.1); RED CELL DISTRIBUTION WIDTH 17.5 % (11.7-14.4)
[2018-07-18 05:27] LABS: ALBUMIN 1.9 g/dL (3.5-5.0); ALBUMIN/GLOBULIN RATIO 0.6 (0.8-2.0); ANION GAP 13.1 mmol/L (8-16); CALCIUM 7.9 mg/dL (8.4-10.2); CREATININE, SERUM 3.44 mg/dL (0.57-1.11); POTASSIUM 3.1 mmol/L (3.5-5.1)
[2018-07-18] MEDS: INSULIN REGULAR, HUMAN 100 UNIT/1 ML 3ML VIAL SQ SCH ×4 (05:38→18:14)
[2018-07-18] MEDS: SODIUM CHLORIDE 0.45% 1,000 ML IV SCH (05:53)
[2018-07-18 06:24] LABS: PHOSPHORUS 4.3 MG/DL (2.3-4.7)
--- NOTE | 2018-07-18 06:37 | Diagnostic Imaging Report ---
EXAMINATION: CHEST SINGLE (PORTABLE) INDICATION: Respiratory failure. ^Resp Failure COMPARISON: Chest x-ray 07/16/2018 FINDINGS: AP view TUBES and LINES: Endotracheal tube tip projects approximately 3.7 cm above the juanito. Left chest wall cardiac pacer. NG/OG tube tip courses below the GE junction, inferiorly out of the field of view. LUNGS: Low lung volumes. Central venous congestion. Linear opacity in the right midlung likely representing atelectasis. Retrocardiac airspace opacity, increased. PLEURA: Small left pleural effusion. No pneumothorax. HEART AND MEDIASTINUM: Mild enlargement of the cardiac silhouette, accentuated by low lung volumes. BONES AND SOFT TISSUES: No acute osseous lesion. Soft tissues are unremarkable. UPPER ABDOMEN: No free air under the diaphragm. IMPRESSION: Cardiomegaly with central pulmonary venous congestion. Increased small left pleural effusion with adjacent atelectasis. Signed by: DR. Aden Hodge MD on 07/18/2018 6:34 AM
--- NOTE | 2018-07-18 06:51 | NUR ---
MD Vasquez paged to notify of critical labs, awaiting response.
[2018-07-18 07:57] LABS: EOSINOPHILS % (MANUAL) 2 % (0-7); LYMPHOCYTES % (MANUAL) 2 % (19-48); MONOCYTES % (MANUAL) 4 % (3.4-9.0); NEUTROPHILS % (MANUAL) 90 % (40-74)
--- NOTE | 2018-07-18 08:00 | NUR ---
Dr Miryam Figueroa to bedside
[2018-07-18] MEDS ORDERED: MAGNESIUM SULFATE 2GM/50ML 50 ML IV ONE (08:15)
[2018-07-18] MEDS ORDERED: SODIUM CHLORIDE 0.9% 1000ML 1,000 ML IV SCH (09:00)
[2018-07-18] MEDS: CLONIDINE HCL 0.3 MG TAB PO SCH (09:00)
[2018-07-18] MEDS: MEGACE 400MG/ 10ML CUP PO SCH (09:00)
[2018-07-18] MEDS ORDERED: MEROPENEM 500MG 500 MG in SODIUM CHLORIDE 0.9% 50ML 50 ML IV SCH (09:00)
[2018-07-18] MEDS: APIXAB 2.5 MG TABLET PO SCH ×2 (09:30→18:10)
[2018-07-18] MEDS: SERTRALINE HCL 50 MG TAB PO SCH (09:30)
[2018-07-18] MEDS: CYANOCOBALAMIN 1,000 MCG TAB PO SCH (09:30)
[2018-07-18] MEDS ORDERED: POTASSIUM CHLORIDE 20MEQ/15ML UDC NG ONE (09:30)
[2018-07-18] MEDS: ASPIRIN 81 MG ENTERIC COATED PO SCH (09:30)
[2018-07-18] MEDS: DILTIAZEM HCL 60 MG TAB PO SCH ×5 (09:30→21:56)
[2018-07-18] MEDS: ASCORBIC ACID 500 MG TAB PO SCH ×2 (09:30→18:10)
--- NOTE | 2018-07-18 09:50 | NUR ---
Dr Mac called and updated on patient condition; orders rec'd.
--- NOTE | 2018-07-18 10:10 | NUR ---
Dr Vickie Castillo to bedside.
[2018-07-18] MEDS: NYSTATIN 15 GM POWDER UD BTL TOP SCH ×2 (11:37→18:10)
[2018-07-18] MEDS: FUROSEMIDE INJ 10 MG/ML 4 ML VIAL IV SCH ×2 (13:49→20:53)
[2018-07-18 16:05] LABS: ABG PCO2 38 mmHg (41-51); ABG PH 7.38 (7.31-7.41)
[2018-07-18 16:06] LABS: ABG HCO3 23 mmol/L (23-28); ABG PO2 87 mmHg (80-105)
--- NOTE | 2018-07-18 18:27 | Progress Note ---
DATE: Pulmonary Critical Care Progress Note SUBJECTIVE: The patient has been sedated most of the day. The fentanyl was held this morning and the Ativan was stopped. We were unable to do spontaneous breathing trials because of oversedation. She is just now starting to wake up more. PHYSICAL EXAMINATION: VITAL SIGNS: The blood pressure is 124/86 and the pulse is 97. Saturation is 99%. She is on AC ventilation at a rate of 14 with a tidal volume of 450. Her FiO2 is set at 45%. HEENT: No facial swelling or erythema. She has a left IJ line in place. The site looks clean. She has an oral endotracheal tube in place. CARDIAC: Regular rate and rhythm with a normal S1 and S2. There are no murmurs or rubs. LUNGS: Auscultation of lungs reveals decreased breath sounds at the bases. There is no wheezing. ABDOMEN: Soft and nontender. There is no rebound or guarding. There is a colostomy bag in position. EXTREMITIES: There is no leg edema. NEUROLOGIC: Shows the patient to be sedated, but is starting to respond. LABORATORY DATA: The white blood cell count is 12.2 and the hemoglobin is 9.5. The platelet count is 121. The magnesium was 1 and has been replaced. The potassium is 3.4 and the BUN to creatinine ratio is 64 to 3.44. RADIUOGRAPHIC DATA: Chest x-ray shows cardiomegaly and a small left pleural effusion. IMPRESSION: 1. Acute on chronic respiratory failure. 2. Multifocal pneumonia. 3. Urinary tract infection with severe sepsis, present on admission. 4. Anemia secondary to chronic blood loss. 5. Chronic systolic congestive heart failure. 6. Acute on chronic kidney injury. 7. Sacral decubitus ulcer. PLAN: 1. Continue to hold sedation and repeat ABG. 2. Restart spontaneous breathing trials once the patient is more awake. 3. Continue current antibiotics. 4. Continue enteral feedings. 5. DVT prophylaxis. 6. The patient is being evaluated by GI for the anemia and blood loss. Fidel Figueroa MD [facility]/MIGUEL /[id number]
--- NOTE | 2018-07-18 19:02 | NUR ---
Full CHG bath, wound care, linen and gown changed, and CVL dressing changed.
--- NOTE | 2018-07-18 19:03 | NUR ---
Viola per Dr Miryam Figueroa to d/c tube feeding and plan to extubate in a.m.
[2018-07-18] MEDS: OLANZAPINE 5 MG TAB PO SCH ×2 (20:53→21:56)
--- NOTE | 2018-07-18 22:30 | NUR ---
Pt transferred to [facility] bariatric specialty mattress with turn, pulsate, CPT, and vibrate functions. Set turn to q30 minutes at level 2 and CPT for 20 minutes.Pt tolerated well.
[2018-07-18] MEDS: MEROPENEM 500MG/ NS 50ML 50 ML IV SCH (23:54)
[2018-07-19] VITALS (26 sets, daily range): BP systolic 108–142; BP diastolic 70–103
[2018-07-19] MEDS ORDERED: SODIUM CHLORIDE 0.9% 250ML 250 ML ONE (01:14)
[2018-07-19] MEDS: METOPROLOL TARTRATE 50 MG TAB PO SCH ×3 (01:34→18:23)
[2018-07-19] MEDS: LEVOFLOXACIN 500MG/D5W 100ML 100 ML IV SCH (02:20)
[2018-07-19] MEDS: INSULIN REGULAR, HUMAN 100 UNIT/1 ML 3ML VIAL SQ SCH ×4 (06:00→18:00)
--- NOTE | 2018-07-19 06:56 | Diagnostic Imaging Report ---
EXAMINATION: CHEST SINGLE (PORTABLE) INDICATION: Resp Failure COMPARISON: Chest x-ray 07/18/2018 FINDINGS: AP view TUBES and LINES: Endotracheal tube tip projects approximately 3.2 cm above the juanito. Left chest wall cardiac pacer. NG/OG tube tip courses below the GE junction, inferiorly out of the field of view. Left IJ catheter tip projects over the brachiocephalic confluence. LUNGS: Low lung volumes. Central venous congestion. Linear opacity in the right midlung, stable. Retrocardiac airspace opacity, stable. PLEURA: Small left pleural effusion. No pneumothorax. HEART AND MEDIASTINUM: Mild enlargement of the cardiac silhouette, accentuated by low lung volumes. BONES AND SOFT TISSUES: No acute osseous lesion. Soft tissues are unremarkable. UPPER ABDOMEN: No free air under the diaphragm. IMPRESSION: No significant change. Cardiomegaly with central pulmonary venous congestion. Small left pleural effusion with adjacent atelectasis/infiltrate. Signed by: DR. Aden Hodge MD on 07/19/2018 6:52 AM
[2018-07-19] MEDS: ASPIRIN 81 MG ENTERIC COATED PO SCH (09:00)
[2018-07-19 09:05] LABS: BASOPHILS % 0.3 % (0.0-1.0); EOSINOPHILS # (AUTO) 0.6 (0.0-0.4); EOSINOPHILS % 5.5 % (0.0-6.0); HEMATOCRIT 30.1 % (34.2-44.1); HEMOGLOBIN 9.4 g/dL (12.0-16.0); LYMPHOCYTES # (AUTO) 1.1 (1.0-3.2); LYMPHOCYTES % 11.3 % (18.0-39.1); MEAN CORPUSCULAR HGB CONC 31.2 g/dL (31-35); MEAN CORPUSCULAR VOLUME 92.9 fL (81-99); MONOCYTES # (AUTO) 0.6 (0.2-0.8); MONOCYTES % 5.7 % (4.4-11.3); NEUTROPHILS # (AUTO) 7.6 (2.1-6.9); NEUTROPHILS % 74.9 % (38.7-80.0); PLATELET COUNT 113 x10e3/uL (140-360); RED BLOOD COUNT 3.24 x10e6/uL (3.6-5.1); RED CELL DISTRIBUTION WIDTH 17.9 % (11.7-14.4)
[2018-07-19 09:22] LABS: INR 1.56; PROTHROMBIN TIME 19.3 seconds (11.9-14.5)
[2018-07-19] MEDS: FUROSEMIDE INJ 10 MG/ML 4 ML VIAL IV SCH ×2 (09:22→22:56)
[2018-07-19] MEDS: DILTIAZEM HCL 60 MG TAB PO SCH ×4 (09:22→22:56)
[2018-07-19] MEDS: APIXAB 2.5 MG TABLET PO SCH ×2 (09:22→18:22)
[2018-07-19] MEDS: CLONIDINE HCL 0.3 MG TAB PO SCH (09:22)
[2018-07-19] MEDS: NYSTATIN 15 GM POWDER UD BTL TOP SCH ×2 (09:23→18:24)
[2018-07-19] MEDS: ASCORBIC ACID 500 MG TAB PO SCH ×2 (09:23→17:00)
[2018-07-19] MEDS: SERTRALINE HCL 50 MG TAB PO SCH (09:23)
[2018-07-19] MEDS: CYANOCOBALAMIN 1,000 MCG TAB PO SCH (09:23)
[2018-07-19] MEDS: MEGACE 400MG/ 10ML CUP PO SCH (09:23)
[2018-07-19 09:24] LABS: ALBUMIN 1.9 g/dL (3.5-5.0); ALBUMIN/GLOBULIN RATIO 0.6 (0.8-2.0); ANION GAP 12.4 mmol/L (8-16); CALCIUM 8.1 mg/dL (8.4-10.2); CREATININE, SERUM 3.72 mg/dL (0.57-1.11); MAGNESIUM 1.3 MG/DL (1.3-2.1); POTASSIUM 3.4 mmol/L (3.5-5.1)
[2018-07-19 10:56] LABS: EOSINOPHILS % (MANUAL) 4 % (0-7); LYMPHOCYTES % (MANUAL) 15 % (19-48); MONOCYTES % (MANUAL) 6 % (3.4-9.0); NEUTROPHILS % (MANUAL) 74 % (40-74)
--- NOTE | 2018-07-19 13:28 | NUR ---
Follow-up Note RD Recommendation(s) for Physician: - Rec to initiate continuous TF of Vital AF 1.2 @25mL/hr and advance as tolerated to goal rate of 55mL/hr, providing 1584kcal, 99g protein, 1070mL water. - Rec free water flushes of 30mL q 4hr; additional per MD discretion - Rec MVi w/minerals x1 daily, vitamin C 550mg x1 daily, and zinc sulfate 220mg x1 daily to support healing of stage IV pressure ulcer - Rec Reglan if gastric residual >250mL after 2nd gastric check - Please obtain KUB if gastric residual >500mL again - Check daily labs, weight, and GI tolerance Plan of Care: RD following, monitoring for tolerance and adequacy, TF rec Nutrition reason for involvement: Follow up RD Assessment 07/19 Pt was discussed during AM rounds. Pt remained intubated and on vent. Sedation was off. Pt attempted to pull her tubes out, therefore was placed on restraint. Per DEJAN Ledezma, pt had gastric residual of 500mL yesterday and TF was held. Spoke with Dr. Castillo regarding my TF rec. Order has been placed for Vital AF 1.2. If gastric residual >250mL after 2nd check, rec Reglan to promote motility. Please obtain KUB if >500mL. Will communicate TF rec with RN. Will continue to monitor and follow. 07/17 Pt was intubated, sedated, and placed on vent this AM. No pressor meds noted. Worsening renal function. Lactic acid was elevated. BG running between 200 400; insulin in place. Enteric tube was placed. Communicated TF rec with RN. Will continue to monitor and follow. 07/16 Chart reviewed. 77yo F, who was admitted from [facility] for PNA. Visited pt in the room. Pt reported poor appetite and decreased PO intake [employer]. Pt also reported unknown # of weight loss for long period of time. No complains of nausea or vomiting. LBM 2 days ago. No chewing or swallowing difficulty. Pt fell asleep during my interview; unable to obtain further hx. Stage IV pressure ulcer noted on admission. Will continue to monitor and follow. Principal Problems/Diagnoses: PNA PMH: Pkrgf-ip-ukfcddd diastolic CHF, chronic AFib, CAD with permanent pacemaker placement, hypertension, and diabetes. GI: abdomen soft, non-tender, liquid brown stool, LBM 3/5 Skin: Sacral Wound - Stage IV Pressure Ulcer - Present on Admission. Labs: (07/19) K 3.4 L, BUN 63 H, Creatinine 3.72 H, Ca 8.1 L (07/17) Na 147 H, BUN 71 H, Creatinine 3.83 H, glucose 213 H Meds: reviewed Ht: 69in Wt: 195lb; 210lb; 233lb BMI: 28.8kg/m2 IBW: 160lb Malnutrition Evaluation (07/16) Poor historian, unable to assess level of malnutrition. Energy intake: Unable to determine Weight loss: Reported weight loss in unknown amount of time. Fat loss: N/A Muscle loss: N/A Supporting Evidence: Fluid accumulation: unable to evaluate Functional Status: unable to evaluate Nutrition Prescription (Diet Order): Tube feeding- Glucerna 1.2 @70mL/hr Estimated Nutritional Needs: Calories: 1453 - 1650kcal (22-25kcal/kg/d) Weight used: IBW Protein: 99 - 165g (1.5-2.5g/kg/d) Weight used: current IBW Diet Adequacy: Not meeting calorie needs, Not meeting protein needs Diet Education Needs Assessment: Diet education indicated, but patient not appropriate for education at this time. Nutrition Care Level: mod (New TF) Nutrition Diagnosis: Inadequate oral intake related to acute illness as evidenced by pt requiring EN as main source of nutrition. Goal: Patient will meet 75-100% of estimated needs by follow up Progress: Not progressing Interventions: Tube feeding Monitoring/Evaluation: Total energy intake, Total protein intake, Weight change, labs, GI tolerance Signed: Bruna Dodson, MS, RD, LD
[2018-07-19] MEDS ORDERED: POTASSIUM CHLORIDE 20MEQ/100ML 100 ML IV ONE (14:45)
--- NOTE | 2018-07-19 16:14 | Diagnostic Imaging Report ---
Examination: Single AP view of the chest. COMPARISON: 07/19/2018 INDICATION: Post intubation DISCUSSION: Lines/tubes: Endotracheal tube in satisfactory position approximately 4 cm from the inferior juanito. Cardiac device. Left IJ central catheter with tip adjacent to the confluence of the brachycephalic vein and SVC. Lungs: Enlargement of the central pulmonary vasculature with opacity overlying the right hilum. Left lower lung atelectasis/consolidation. Pleura: Possible left effusion. Heart and mediastinum: Prominent heart size. Bones and soft tissues: No acute bony abnormalities. Degenerative changes in the thoracic spine. IMPRESSION: Cardiomegaly with pulmonary venous congestion Left effusion with atelectasis/consolidation. Signed by: Dr. Kam Broussard M.D. on 07/19/2018 4:11 PM
--- NOTE | 2018-07-19 16:17 | Diagnostic Imaging Report ---
CT BRAIN WO HISTORY: Altered mental status COMPARISON: None. Technique: Noncontrast axial scans were obtained from skull base to the vertex. Coronal and sagittal reconstructions obtained from the axial data. One or more of the following dose reduction techniques were used: Automated exposure control, adjustment of the mA and/or kV according to patient size, and/or utilization of iterative reconstruction technique. DISCUSSION: Scalp/Skull: Unremarkable. Brain sulci: Mildly prominent. Ventricles: Compensatory dilatation. Extra-axial spaces: No masses or fluid collections. Carotid siphon and vertebral artery calcifications are present. Parenchyma: Mild to moderate bilateral deep white matter hypodensity is likely chronic microvascular ischemic change. Otherwise, no masses, hemorrhage, or large vascular territory acute infarct. Dural sinuses: No abnormal densities. Sellar/Suprasellar region: Intact. Skull base: Intact. Incidental findings: The right ocular lens is thinned. IMPRESSION: 1. No acute intracranial abnormalities. 2. Mild to moderate supratentorial chronic microvascular ischemic change. Mild generalized cerebral volume loss. Signed by: Dr. Joe Van M.D. on 07/19/2018 4:14 PM
[2018-07-19] MEDS ORDERED: POTASSIUM CHLORIDE 10MEQ/100ML 100 ML ONE (16:24)
--- NOTE | 2018-07-19 19:46 | Progress Note ---
DATE: Pulmonary Critical Care Progress Note SUBJECTIVE: The patient was more obtunded today. She was difficult to arouse and the staff was unable to do the spontaneous breathing trial. The patient went for a head CT. While in head CT, she self-extubated and had to be re-intubated. She now has returned to the ICU. OBJECTIVE: VITAL SIGNS: The patient is afebrile. The blood pressure is 122/91, saturation is 100%. She is on assist control at rate of 14 and a tidal volume of 450. The PEEP is set at 5 and the FiO2 set at 45%. HEENT: Shows no facial swelling or erythema. The oropharynx is normal. There is an endotracheal tube in place. CARDIAC: Reveals regular rate and rhythm with normal S1 and S2. LUNGS: Auscultation of lungs reveals decreased breath sounds at the bases. ABDOMEN: Soft and nontender. There is no rebound or guarding. EXTREMITIES: Show no leg edema or calf tenderness. There is no cyanosis or clubbing. LABORATORY DATA: The white blood cell count is 10 and the hemoglobin is 9.5. The platelet count is 113. The BUN to creatinine ratio is 63 to 3.72. The potassium is 3.4. The AST has improved to 1.41 and the ALT has improved to 571. The ammonia is 50. RADIOGRAPHIC DATA: Chest x-ray shows some cardiomegaly and a small left pleural effusion. IMPRESSION: 1. Acute on chronic respiratory failure. 2. Urinary tract infection with severe sepsis, present on admission. 3. Metabolic encephalopathy. 4. Acute on chronic kidney injury. 5. Chronic systolic congestive heart failure. 6. Sacral decubitus ulcer. PLAN: 1. Continue to hold sedation and monitor mental status. 2. Await results of CT scan of head. 3. Continue enteral feedings. 4. Continue current antibiotics. 5. Continue to monitor liver function tests. 6. Continue to monitor hemoglobin. 7. Case discussed with nursing staff and Respiratory. 8. Greater than 35 minutes in direct critical care time during 2 separate visits. Fidel Figuerao MD LM/MADANL /[id number]
--- NOTE | 2018-07-19 22:00 | NUR ---
Pt's sister Aranza provided POA paperwork, copies obtained and placed in chart. Sister states that pt would not want to be kept alive via artificial means, informed sister that pt's BP is maintained without meds, that she is on a ventilator, and that weaning and extubation will be attempted in AM. Aranza states that she will return in AM after discussing DNR status with family and speak to .
[2018-07-19] MEDS: MEROPENEM 500MG/ NS 50ML 50 ML IV SCH (22:56)
[2018-07-19] MEDS: OLANZAPINE 5 MG TAB PO SCH (22:56)
[2018-07-20] VITALS (21 sets, daily range): BP systolic 111–164; BP diastolic 48–118
[2018-07-20] MEDS: INSULIN REGULAR, HUMAN 100 UNIT/1 ML 3ML VIAL SQ SCH ×4 (00:50→18:00)
[2018-07-20] MEDS: METOPROLOL TARTRATE 50 MG TAB PO SCH ×4 (01:00→17:00)
[2018-07-20 05:55] LABS: BASOPHILS % 0.3 % (0.0-1.0); EOSINOPHILS # (AUTO) 0.5 (0.0-0.4); EOSINOPHILS % 5.2 % (0.0-6.0); HEMATOCRIT 30.6 % (34.2-44.1); HEMOGLOBIN 9.5 g/dL (12.0-16.0); LYMPHOCYTES # (AUTO) 1.1 (1.0-3.2); LYMPHOCYTES % 11.8 % (18.0-39.1); MEAN CORPUSCULAR VOLUME 93.3 fL (81-99); MONOCYTES # (AUTO) 0.5 (0.2-0.8); MONOCYTES % 5.6 % (4.4-11.3); NEUTROPHILS # (AUTO) 6.8 (2.1-6.9); NEUTROPHILS % 74.9 % (38.7-80.0); PLATELET COUNT 105 x10e3/uL (140-360); RED BLOOD COUNT 3.28 x10e6/uL (3.6-5.1); RED CELL DISTRIBUTION WIDTH 18.2 % (11.7-14.4)
--- NOTE | 2018-07-20 06:08 | Diagnostic Imaging Report ---
EXAMINATION: CHEST SINGLE (PORTABLE) INDICATION: ETT and OGT placement COMPARISON: Chest x-ray 07/19/2018 FINDINGS: AP view TUBES and LINES: Endotracheal tube tip projects approximately 3.8 cm above the juanito. Left chest wall cardiac pacer. NG/OG tube tip courses below the GE junction, inferiorly out of the field of view. Left IJ catheter tip projects over the brachiocephalic confluence/SVC junction. LUNGS: Low lung volumes. Central venous congestion. Linear opacity in the right midlung, stable. Retrocardiac airspace opacity, stable. PLEURA: Left pleural effusion. No pneumothorax. HEART AND MEDIASTINUM: Mild enlargement of the cardiac silhouette, accentuated by low lung volumes. BONES AND SOFT TISSUES: Stable UPPER ABDOMEN: No free air under the diaphragm. IMPRESSION: No significant change. Cardiomegaly with central pulmonary venous congestion. Left pleural effusion with atelectasis/consolidation. Signed by: DR. Aden Hodge MD on 07/20/2018 6:04 AM
[2018-07-20 06:30] LABS: ALBUMIN 1.8 g/dL (3.5-5.0); ALBUMIN/GLOBULIN RATIO 0.6 (0.8-2.0); ANION GAP 12.4 mmol/L (8-16); CALCIUM 8.5 mg/dL (8.4-10.2); CREATININE, SERUM 3.86 mg/dL (0.57-1.11); MAGNESIUM 1.3 MG/DL (1.3-2.1); POTASSIUM 3.4 mmol/L (3.5-5.1)
[2018-07-20] MEDS ORDERED: MIDAZOLAM HCL 2 MG/2 ML VIAL ONE (06:49)
--- NOTE | 2018-07-20 07:20 | NUR ---
Pt self extubated despite secure restraints. RR called, re-intubated. Sister Aranza called back, informed of self-extubation and re-intubation. Sister states that she will come to hospital and make pt a DNR. Denise Guallpa RN notified
--- NOTE | 2018-07-20 08:27 | Diagnostic Imaging Report ---
EXAMINATION: CHEST SINGLE (PORTABLE) COMPARISON: Chest x-ray 0537 hours INDICATION: ^Intubation ^[id number] ^0705 DISCUSSION: Frontal view of the chest obtained at 0708 hours. HEART AND MEDIASTINUM: Stable cardiomegaly and prominence of the right hilum suggestive of pulmonary artery enlargement or lymphadenopathy. Central pulmonary veins are prominent and stable. LINES: Endotracheal tube terminates approximately 3 cm above the juanito. Left IJ catheter terminates in the distal brachiocephalic vein at the confluence with the SVC and is stable. Dual-lead pacemaker wires remain in the right atrium and right ventricle. LUNGS: Low lung volumes with subsegmental atelectasis in the right midlung field and patchy airspace opacities in the upper lobes. Bilateral apical pleural-parenchymal thickening is similar. Retrocardiac airspace disease is stable. PLEURA: No pleural effusion or pneumothorax. BONES AND SOFT TISSUES: No focal osseous lesion. The soft tissues are normal. IMPRESSION: 1. Support devices as described above. 2. Persistent retrocardiac airspace disease suggestive of atelectasis or infiltrate. Small pleural effusion cannot be excluded. Stable subsegmental atelectasis in the right lung. 3. Stable cardiomegaly and pulmonary venous congestion. Enlarged right hilum may be the result of pulmonary artery hypertension. Signed by: Dr. Dotty Larson MD on 07/20/2018 8:24 AM
[2018-07-20] MEDS ORDERED: EPINEPHRINE 2.25% INH NEBU SOL 0.5 ML VIAL ONE (08:56)
[2018-07-20] MEDS: DILTIAZEM HCL 60 MG TAB PO SCH ×4 (09:00→21:00)
[2018-07-20] MEDS: APIXAB 2.5 MG TABLET PO SCH ×2 (09:00→17:00)
[2018-07-20] MEDS ORDERED: METHYLPREDNISOLONE SOD SUCC 125 MG/2ML VIAL IV NR (09:00)
[2018-07-20] MEDS: CYANOCOBALAMIN 1,000 MCG TAB PO SCH (09:00)
[2018-07-20] MEDS: ASPIRIN 81 MG ENTERIC COATED PO SCH (09:00)
[2018-07-20] MEDS: MEGACE 400MG/ 10ML CUP PO SCH (09:00)
[2018-07-20] MEDS: FUROSEMIDE INJ 10 MG/ML 4 ML VIAL IV SCH ×2 (09:00→21:58)
[2018-07-20] MEDS: ASCORBIC ACID 500 MG TAB PO SCH ×2 (09:00→17:00)
[2018-07-20] MEDS: SERTRALINE HCL 50 MG TAB PO SCH (09:00)
[2018-07-20] MEDS: CLONIDINE HCL 0.3 MG TAB PO SCH (09:00)
[2018-07-20] MEDS: NYSTATIN 15 GM POWDER UD BTL TOP SCH ×2 (09:00→17:00)
[2018-07-20] MEDS ORDERED: EPINEPHRINE 2.25% INH NEBU SOL 0.5 ML VIAL INH SCH (09:15)
--- NOTE | 2018-07-20 09:16 | NUR ---
Solumedrol 60mg IV given and patient extubated by Respiratory and sister and nieces at bedside.
[2018-07-20] MEDS ORDERED: POTASSIUM CHLORIDE 20MEQ/100ML 100 ML IV ONE (11:00)
--- NOTE | 2018-07-20 12:40 | Progress Note ---
DATE: Pulmonary Critical Care Progress Note SUBJECTIVE: Apparently, the patient self extubated early this morning and was reintubated by the emergency department. I was not notified during these events. The patient is now back on a mechanical ventilator. Family is at the bedside. The patient's sister, who is the durable power of civil attorney and the next of kin states that the patient did not want heroic measures and is requesting that we remove the patient from the ventilator. OBJECTIVE: VITAL SIGNS: Blood pressure is 114/71 and the pulse is 76. HEENT: Shows no facial swelling or erythema. The nasal mucosa is normal. The oropharynx is normal. LYMPHATIC: Shows no submandibular, cervical, or supraclavicular adenopathy. CARDIAC: Reveals regular rate and rhythm with normal S1 and S2. RESPIRATORY: Auscultation of lungs reveal rhonchorous breath sounds bilaterally. There is no wheezing. ABDOMEN: Soft and nontender. There is no rebound or guarding. LABORATORY DATA: White blood cell count is 9, hemoglobin is 9.5, and the platelet count is 105. The BUN to creatinine ratio is 64 to 3.86. The INR is 1.56. IMPRESSION: 1. Acute on chronic respiratory failure. 2. Urinary tract infection with severe sepsis, present on admission. 3. Metabolic encephalopathy. 4. Acute on chronic kidney injury. 5. Chronic systolic congestive heart failure. PLAN: 1. The patient apparently had a living will and did not desire heroic measures. 2. The durable power of civil attorney, next of kin wants to respect the patient's wishes and have remove from life support. 3. Prognosis is poor and chance for meaningful recovery is very small. 4. Continue current antibiotics. 5. Sedation and pain medication as needed for comfort. Fidel Figueroa MD LM/MADANL /[id number]
[2018-07-20] MEDS ORDERED: SUCCINYLCHOLINE CHLORIDE 20 MG/ML 10ML VIAL ONE ×2 (13:19→14:44)
[2018-07-20] MEDS ORDERED: ETOMIDATE 40 MG/ 20ML VIAL IV ONE (13:19)
[2018-07-20] MEDS ORDERED: ETOMIDATE 2 MG/ML 10 ML INJ IV ONE (14:44)
[2018-07-20] MEDS ORDERED: POTASSIUM CHLORIDE 20MEQ/100ML 100 ML ONE (15:37)
[2018-07-20 15:59] LABS: BAND NEUTROPHILS % (MANUAL) 2 %; LYMPHOCYTES % (MANUAL) 15 % (19-48); MONOCYTES % (MANUAL) 6 % (3.4-9.0); NEUTROPHILS % (MANUAL) 75 % (40-74)
[2018-07-20 16:00] LABS: EOSINOPHILS % (MANUAL) 2 % (0-7)
[2018-07-20 16:01] LABS: PLATELET ESTIMATE MODERATELY DECREASED; PLATELET MORPHOLOGY COMMENT NORMAL; RBC MORPHOLOGY COMMENT NORMAL
[2018-07-20] MEDS: LORAZEPAM INJ 2 MG/ML VIAL IV PRN ×2 (17:17→22:39)
[2018-07-20] MEDS: LEVALBUTEROL HCL SOLN NEBU 0.63 MG/3 ML NEB INH PRN (19:20)
[2018-07-20] MEDS: IPRATROPIUM BROMIDE 0.02% 2.5 ML NEB NEB PRN (19:20)
[2018-07-20] MEDS: OLANZAPINE 5 MG TAB PO SCH (21:00)
[2018-07-20] MEDS: MEROPENEM 500MG/ NS 50ML 50 ML IV SCH (22:40)
[2018-07-21] VITALS (22 sets, daily range): BP systolic 105–164; BP diastolic 62–115
--- NOTE | 2018-07-21 | NUR ---
Paged Dr. Jose M Castillo regarding afib with sustained HR 120s-150s. Awaiting return call.
[2018-07-21] MEDS: METOPROLOL TARTRATE 50 MG TAB PO SCH ×3 (01:00→17:00)
[2018-07-21] MEDS ORDERED: METOPROLOL TARTRATE INJ 1 MG/ML VIAL ONE (03:01)
[2018-07-21] MEDS: LEVOFLOXACIN 500MG/D5W 100ML 100 ML IV SCH (03:31)
[2018-07-21] MEDS ORDERED: AMIODARONE HCL 150MG 100 ML IV ONE (03:45)
[2018-07-21] MEDS ORDERED: AMIODARONE HCL INJ 150MG/3ML ONE (03:57)
[2018-07-21] MEDS ORDERED: AMIODARONE HCL 900 MG in DEXTROSE 5% 500ML 500 ML IV ONE (04:30)
--- NOTE | 2018-07-21 04:30 | NUR ---
Spoke to Dr. Castillo x 2 regarding HR. Orders received.
[2018-07-21] MEDS ORDERED: AMIODARONE 900MG 500 ML IV ONE (05:18)
[2018-07-21] MEDS: INSULIN REGULAR, HUMAN 100 UNIT/1 ML 3ML VIAL SQ SCH ×4 (05:48→18:00)
[2018-07-21] MEDS: FUROSEMIDE INJ 10 MG/ML 4 ML VIAL IV SCH ×2 (08:45→22:00)
[2018-07-21] MEDS: DILTIAZEM HCL 60 MG TAB PO SCH ×4 (09:00→22:30)
[2018-07-21] MEDS: ASCORBIC ACID 500 MG TAB PO SCH ×2 (09:00→15:29)
[2018-07-21] MEDS: APIXAB 2.5 MG TABLET PO SCH ×2 (09:00→17:00)
[2018-07-21] MEDS: NYSTATIN 15 GM POWDER UD BTL TOP SCH ×2 (09:00→17:00)
[2018-07-21] MEDS: METOPROLOL TARTRATE INJ 1 MG/ML VIAL IV PRN (09:16)
--- NOTE | 2018-07-21 12:00 | NUR ---
Amiodarone drip rate decreased to 0.5mg to 16cc/ hr as ordered
--- NOTE | 2018-07-21 12:35 | NUR ---
Size 16 [place] Sump NGT inserted to right Nare and tolerated well. Will do X-Ray to confirm placement.
--- NOTE | 2018-07-21 13:55 | Diagnostic Imaging Report ---
EXAMINATION: CHEST SINGLE (PORTABLE) INDICATION: NG tube placement. COMPARISON: Chest radiograph 07/20/2018. FINDINGS: Limited study with exclusion of the upper thorax. NG tube terminates in the proximal stomach, the side-port is near the GE junction. Left retrocardiac opacity persists. Possible small left pleural effusion. The lower cardiomediastinal silhouette is unremarkable. IMPRESSION: NG tube terminates in the stomach, the side-port is near the GE junction. Consider advancement by approximately 2-3 cm. Left retrocardiac opacity may represent atelectasis or pneumonia. Signed by: Dr. Sonu Keith MD on 07/21/2018 1:51 PM
--- NOTE | 2018-07-21 14:00 | NUR ---
NGT advanced approx. 3cm as ordered and tolerated well.
[2018-07-21] MEDS ORDERED: QUETIAPINE FUMARATE 25 MG TAB PO NR (15:15)
[2018-07-21] MEDS: ASPIRIN 81 MG ENTERIC COATED PO SCH (15:23)
[2018-07-21] MEDS: CLONIDINE HCL 0.3 MG TAB PO SCH (15:24)
[2018-07-21] MEDS: MEGACE 400MG/ 10ML CUP PO SCH (15:24)
[2018-07-21] MEDS: CYANOCOBALAMIN 1,000 MCG TAB PO SCH (15:26)
--- NOTE | 2018-07-21 15:30 | NUR ---
Dr. Linda Figueroa here to see patient and Seroquel 50mg given via NGT for agitation.
[2018-07-21] MEDS: SERTRALINE HCL 50 MG TAB PO SCH (15:34)
--- NOTE | 2018-07-21 17:00 | NUR ---
Patient much calmer now and wrist restraints discontinued and mittens applied to hands bilaterally and tolerating well. Patient is calm and sedated and arousable to painful stimuli. V/S are stable.
--- NOTE | 2018-07-21 19:45 | Progress Note ---
DATE: Pulmonary Critical Care Progress Note SUBJECTIVE: The patient was extubated yesterday and placed on a Ventimask in accordance with her wishes. Last night, she developed some tachycardia. She was found to be in atrial fibrillation and a rapid ventricular rate. She was started on amiodarone. She was also restrained because of agitation. PHYSICAL EXAMINATION: VITAL SIGNS: The patient is afebrile. The vital signs are stable. HEENT: Shows no facial swelling or erythema. There is an oral nasogastric tube in place. CARDIAC: Reveals regular rate and rhythm with normal S1, S2. LUNGS: Auscultation of lungs shows clear breath sounds bilaterally. There is no wheezing. ABDOMEN: Soft, nontender. There is no rebound or guarding. EXTREMITIES: Shows no leg edema or calf tenderness. There is no cyanosis or clubbing. SKIN: Shows no rashes. NEUROLOGIC: Shows no focal abnormalities, although the patient is confused. IMPRESSION: 1. Kcibf-rc-hkdtnhn respiratory failure. 2. Metabolic encephalopathy. 3. Atrial fibrillation with rapid ventricular response. 4. Djscz-yg-tclenjk kidney injury. PLAN: 1. The patient will continue on amiodarone. 2. Seroquel for agitation. 3. Continue current antibiotics. 4. The patient is DNR. Fidel Figueroa MD LM/MIGUEL /[id number]
[2018-07-21] MEDS: LEVALBUTEROL HCL SOLN NEBU 0.63 MG/3 ML NEB INH PRN (20:15)
[2018-07-21] MEDS: IPRATROPIUM BROMIDE 0.02% 2.5 ML NEB NEB PRN (20:15)
[2018-07-21] MEDS: OLANZAPINE 5 MG TAB PO SCH (21:00)
[2018-07-21] MEDS: MEROPENEM 500MG/ NS 50ML 50 ML IV SCH (22:31)
[2018-07-22] VITALS (24 sets, daily range): BP systolic 99–145; BP diastolic 61–114
[2018-07-22] MEDS: IPRATROPIUM BROMIDE 0.02% 2.5 ML NEB NEB PRN ×4 (00:15→19:30)
[2018-07-22] MEDS: LEVALBUTEROL HCL SOLN NEBU 0.63 MG/3 ML NEB INH PRN ×4 (00:15→19:30)
[2018-07-22] MEDS: INSULIN REGULAR, HUMAN 100 UNIT/1 ML 3ML VIAL SQ SCH ×4 (00:19→18:00)
[2018-07-22] MEDS: METOPROLOL TARTRATE 50 MG TAB PO SCH ×4 (01:00→18:25)
[2018-07-22 05:33] LABS: BASOPHILS % 0.1 % (0.0-1.0); HEMATOCRIT 31.1 % (34.2-44.1); HEMOGLOBIN 9.6 g/dL (12.0-16.0); LYMPHOCYTES # (AUTO) 0.7 (1.0-3.2); MEAN CORPUSCULAR HGB CONC 30.9 g/dL (31-35); MONOCYTES # (AUTO) 0.5 (0.2-0.8); MONOCYTES % 5.2 % (4.4-11.3); NEUTROPHILS # (AUTO) 8.9 (2.1-6.9); NEUTROPHILS % 86.2 % (38.7-80.0); PLATELET COUNT 90 x10e3/uL (140-360); RED BLOOD COUNT 3.31 x10e6/uL (3.6-5.1); RED CELL DISTRIBUTION WIDTH 18.8 % (11.7-14.4)
[2018-07-22 06:02] LABS: ALBUMIN 2.3 g/dL (3.5-5.0); ALBUMIN/GLOBULIN RATIO 0.7 (0.8-2.0); ANION GAP 16.2 mmol/L (8-16); CALCIUM 8.6 mg/dL (8.4-10.2); CREATININE, SERUM 4.33 mg/dL (0.57-1.11); POTASSIUM 4.2 mmol/L (3.5-5.1)
[2018-07-22] MEDS: CLONIDINE HCL 0.3 MG TAB PO SCH (09:00)
[2018-07-22] MEDS: DILTIAZEM HCL 60 MG TAB PO SCH ×5 (09:15→21:00)
[2018-07-22] MEDS: FUROSEMIDE INJ 10 MG/ML 4 ML VIAL IV SCH ×2 (09:22→21:15)
[2018-07-22] MEDS: CYANOCOBALAMIN 1,000 MCG TAB PO SCH (09:23)
[2018-07-22] MEDS: SERTRALINE HCL 50 MG TAB PO SCH (09:23)
[2018-07-22] MEDS: MEGACE 400MG/ 10ML CUP PO SCH (09:23)
[2018-07-22] MEDS: APIXAB 2.5 MG TABLET PO SCH ×3 (09:23→18:24)
[2018-07-22] MEDS: ASCORBIC ACID 500 MG TAB PO SCH ×3 (09:23→18:25)
[2018-07-22] MEDS: ASPIRIN 81 MG CHEW TAB PO SCH (10:06)
--- NOTE | 2018-07-22 13:38 | NUR ---
PT IS FROM [facility] AND PLAN IS TO RETURN WHEN READY
--- NOTE | 2018-07-22 18:03 | NUR ---
ORDER FOR LTAC EVAL CM CALLED AND SPOKE WITH PT'S SISTER AND MPOA, RILEY RODRIGUEZ CONSENT OVER PHONE FOR [facility] MOT INITIATED AND PUT IN PACKET IN ICU BEATRI[place] WITH [facility] NOTIFIED OF CONSULT PLAN TRANSFER WHEN ACCEPTED
--- NOTE | 2018-07-22 18:58 | NUR ---
pt pulled out NGT, unable to admin 1700 and 1800 medications. will continue to monitor
--- NOTE | 2018-07-22 19:00 | NUR ---
Report received. Assumed care. Assessment done. See interventions.
[2018-07-22] MEDS ORDERED: ONDANSETRON HCL INJ 2MG/ML 2ML 2 MG/ML VIAL IV PRN (19:45)
[2018-07-22] MEDS: OLANZAPINE 5 MG TAB PO SCH (21:00)
--- NOTE | 2018-07-22 21:42 | NUR ---
Pericare done. Very agitated. States "Who are you and what are you doing in my house". Reassurance given.
[2018-07-22] MEDS: LORAZEPAM INJ 2 MG/ML VIAL IV PRN (21:48)
--- NOTE | 2018-07-22 21:50 | NUR ---
Medicated with Ativan for agitation.
--- NOTE | 2018-07-22 22:10 | NUR ---
Dr. Lemos here. Advised Dr. Castillo wants to know resp george if she's OK for PEG placement. Will dictate note.
[2018-07-22] MEDS: MEROPENEM 500MG/ NS 50ML 50 ML IV SCH (22:58)
--- NOTE | 2018-07-22 23:35 | NUR ---
PULMONARY ATTENDING dictated [id number] Patient seen and examined today. Plan for endoscopy and PEG placement. Will recheck another CXR now that the patient is extubated, and if reasonable clear t he patient likely can undergo the planned procedure with optimized/low risk. Noted the atrial fibrillation may need better stabilization and the NOAC may need to be held prior to procedure. Will discuss with GI, or will leave these to anesthesia or designated to optimize procedure timing.
[2018-07-23] VITALS (24 sets, daily range): BP systolic 113–158; BP diastolic 75–122
[2018-07-23] MEDS: LEVALBUTEROL HCL SOLN NEBU 0.63 MG/3 ML NEB INH PRN
[2018-07-23] MEDS: IPRATROPIUM BROMIDE 0.02% 2.5 ML NEB NEB PRN
[2018-07-23] MEDS: INSULIN REGULAR, HUMAN 100 UNIT/1 ML 3ML VIAL SQ SCH ×4 (00:17→18:00)
[2018-07-23] MEDS: METOPROLOL TARTRATE 50 MG TAB PO SCH ×3 (01:00→17:00)
[2018-07-23] MEDS: LEVOFLOXACIN 500MG/D5W 100ML 100 ML IV SCH (02:35)
--- NOTE | 2018-07-23 02:45 | NUR ---
Dr. Castillo here. Advised that pt was on Eliquis and needs to be off x2 days. Plan for PEG on . NGT reinserted without difficulty. Placement verified with air bolus and aspiration of stomach secretions. 0300 Tube feeding resumed and restraints placed per orders.
[2018-07-23] MEDS: METOPROLOL TARTRATE INJ 1 MG/ML VIAL IV PRN (03:06)
[2018-07-23 05:19] LABS: ALBUMIN 2.2 g/dL (3.5-5.0); ALBUMIN/GLOBULIN RATIO 0.7 (0.8-2.0); ANION GAP 15.6 mmol/L (8-16); CALCIUM 8.5 mg/dL (8.4-10.2); CREATININE, SERUM 4.28 mg/dL (0.57-1.11); POTASSIUM 3.6 mmol/L (3.5-5.1)
--- NOTE | 2018-07-23 05:20 | Diagnostic Imaging Report ---
EXAMINATION: CHEST SINGLE (PORTABLE) INDICATION: CHF. Chronic A. fib. COMPARISON: Chest radiograph 07/21/2018. DISCUSSION: HEART AND MEDIASTINUM: The cardiac silhouette remains mildly to moderately enlarged. TUBES and LINES: Endotracheal tube has been removed. Left neck catheter terminates in the distal brachiocephalic vein at the confluence with the SVC and is stable. Dual-lead pacemaker wires remain in the right atrium and right ventricle. LUNGS: Bilateral pulmonary venous congestion and mild alveolar pulmonary edema. Improvement of right midlung platelike atelectasis. PLEURA: Small left pleural effusion. No pneumothorax. BONES AND SOFT TISSUES: No focal osseous lesion. IMPRESSION: 1. Bilateral pulmonary venous congestion and mild alveolar pulmonary edema. 2. Small left pleural effusion. Signed by: Dr. Linda Alexis M.D. on 07/23/2018 5:17 AM
--- NOTE | 2018-07-23 06:37 | Progress Note ---
DATE: 07/22/2018 Pulmonary Medicine Progress Note SUBJECTIVE: Ms. Muller was seen and examined and she is well known to me from long ago. The patient at this time with 3 L per minute of oxygen by nasal cannula, 98% oxygen saturation. Su is in place with urine output. She is still encephalopathic, alert and oriented x1. Heart rate noted in 140s, intermittently, atrial fibrillation. REVIEW OF SYSTEMS: Cannot get reliably, she is altered. OBJECTIVE: VITAL SIGNS: Afebrile, vital signs noted per the chart record. Heart rate high as stated. GENERAL: In no acute distress, but very anxious and encephalopathic. HEENT: Normocephalic and atraumatic. NECK: Supple. Throat midline. LUNGS: Bilateral air entry, limited due to decreased participation. CARDIOVASCULAR: S1 and S2. No murmurs, rub, or gallops. Tachycardic. ABDOMEN: Soft and obese. EXTREMITIES: No clubbing. No cyanosis, there is 1+ edema. INTEGUMENT: No rash, no purpura. LABORATORY DATA: Potassium 4.2, BUN 31, and creatinine 4.3. White count 10, hematocrit 31, and platelets 90. Chest x-ray done on July 20, 2018, with right perihilar opacity/infiltrate. Subsequent chest x-ray showed improvement, but was focused more on the abdominal view. IMPRESSION AND PLAN: 1. Acute respiratory failure, now extubated. 2. Urinary tract infection with severe sepsis due to Klebsiella pneumoniae and Proteus mirabilis. 3. Sacral wound infection, methicillin-resistant Staphylococcus aureus. 4. Anemia. 5. Thrombocytopenia. 6. Coagulopathy, multifactorial. 7. Ytiah-zs-kxhujmf kidney failure. 8. Severe protein malnutrition. 9. Possible pneumonia. 10. Encephalopathy, multifactorial. Predominantly metabolic. 11. Atrial fibrillation, not rate controlled now. 12. Debility/weakness. 13. Diabetes. 14. Hypertension. We will repeat another x-ray. If the lungs are reasonably clear, it could be reasonable to proceed with GI endoscopy with PEG placement. It is noted, however, the patient has atrial fibrillation that Anesthesia may choose to have better control before undergoing anesthesia. Continue oxygen and wean as possible. Continue restorative care. Continue aggressive IV antibiotics for multiple infection sources. Renal is managing the kidney failure. The patient at this time is on apixaban, which she will need to come off if there is a plan for PEG tube placement. MD SUDHAKAR Hooks/MIGUEL /[id number]
[2018-07-23] MEDS: FUROSEMIDE INJ 10 MG/ML 4 ML VIAL IV SCH ×2 (08:07→20:07)
[2018-07-23] MEDS: ASCORBIC ACID 500 MG TAB PO SCH ×2 (08:08→17:00)
[2018-07-23] MEDS: ASPIRIN 81 MG CHEW TAB PO SCH (08:08)
[2018-07-23] MEDS: SERTRALINE HCL 50 MG TAB PO SCH (08:08)
[2018-07-23] MEDS: CYANOCOBALAMIN 1,000 MCG TAB PO SCH (08:08)
[2018-07-23] MEDS: MEGACE 400MG/ 10ML CUP PO SCH (08:08)
[2018-07-23] MEDS: DILTIAZEM HCL 60 MG TAB PO SCH ×4 (08:08→20:08)
[2018-07-23] MEDS ORDERED: AMIODARONE 900MG 500 ML IV ONE (09:00)
[2018-07-23] MEDS: CLONIDINE HCL 0.3 MG TAB PO SCH (09:00)
--- NOTE | 2018-07-23 14:54 | NUR ---
Follow-up Note RD Recommendation(s) for Physician: - If PO is not feasible, rec to initiate continuous TF of Nepro at goal rate of 40mL/hr with addition of 1 pkt Michael, providing 1818kcal, 92g protein, 700mL water. - Rec free water flushes of 30mL q 4hr; additional per MD discretion - If PO is feasible, rec renal/ ADA 1800 diet; diet texture per ASP NET PROGRAMMER - Rec MVi w/minerals x1 daily, vitamin C 550mg x1 daily, and zinc sulfate 220mg x1 daily to support healing of stage IV pressure ulcer - Check daily labs, weight, and GI tolerance Plan of Care: RD following, monitoring for tolerance and adequacy, TF rec Nutrition reason for involvement: Follow up RD Assessment 07/23 Pt was discussed during AM rounds. Labs and meds reviewed. Pt was extubated and on nasal cannula. Pt was confused. Per RN, pt has pulled out her NGT x3 and requested for foods. Pt was placed on restraint. No GI complains noted. TF was on hold. Speech bedside swallow eval was ordered. If PO is not feasible, possible PEG placement on . Will continue to monitor and follow. Please consult as needed. 07/19 Pt was discussed during AM rounds. Pt remained intubated and on vent. Sedation was off. Pt attempted to pull her tubes out, therefore was placed on restraint. Per RN Brisa, pt had gastric residual of 500mL yesterday and TF was held. Spoke with Dr. Castillo regarding my TF rec. Order has been placed for Vital AF 1.2. If gastric residual >250mL after 2nd check, rec Reglan to promote motility. Please obtain KUB if >500mL. Will communicate TF rec with RN. Will continue to monitor and follow. 07/17 Pt was intubated, sedated, and placed on vent this AM. No pressor meds noted. Worsening renal function. Lactic acid was elevated. BG running between 200 400; insulin in place. Enteric tube was placed. Communicated TF rec with RN. Will continue to monitor and follow. 07/16 Chart reviewed. 77yo F, who was admitted from [facility] for PNA. Visited pt in the room. 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 Pt also reported unknown # of weight loss for long period of time. No complains of nausea or vomiting. LBM 2 days ago. No chewing or swallowing difficulty. Pt fell asleep during my interview; unable to obtain further hx. Stage IV pressure ulcer noted on admission. Will continue to monitor and follow. Principal Problems/Diagnoses: Acute respiratory failure, now extubated. PMH: [id number]-[id number] diastolic CHF, chronic AFib, CAD with permanent pacemaker placement, hypertension, and diabetes. GI: abdomen soft, large, round, LBM 07/23 Skin: Sacral Wound - Stage IV Pressure Ulcer - Present on Admission. Labs: (07/23) BUN 74 H, Creatinine 4.28 H, Glucose 130 150 H, ALT 195 H (07/19) K 3.4 L, BUN 63 H, Creatinine 3.72 H, Ca 8.1 L (07/17) Na 147 H, BUN 71 H, Creatinine 3.83 H, glucose 213 H Meds: Megace, vit 12, vit C, lasix, insulin Ht: 69in Wt: 195lb; 210lb; 233lb; 204lb BMI: 28.8kg/m2 IBW: 160lb Malnutrition Evaluation (07/16) Poor historian, unable to assess level of malnutrition. Energy intake: Unable to determine Weight loss: Reported weight loss in unknown amount of time. Fat loss: N/A Muscle loss: N/A Supporting Evidence: Fluid accumulation: unable to evaluate Functional Status: unable to evaluate Nutrition Prescription (Diet Order): Tube feeding- Nepro @30mL/hr Estimated Nutritional Needs: Calories: 1606 - 1825kcal (22-25kcal/kg/d) Weight used: IBW Protein: 88 - 110g (1.2-1.5g/kg/d) Weight used: IBW Diet Adequacy: TF on hold. Diet Education Needs Assessment: Diet education indicated, but patient not appropriate for education at this time. Nutrition Care Level: mod Nutrition Diagnosis: Inadequate oral intake related to acute illness as evidenced by pt requiring EN as main source of nutrition. Goal: Patient will meet 75-100% of estimated needs by follow up Progress: Not progressing Interventions: Tube feeding if PO is not feasible, consult ASP NET PROGRAMMER for swallow eval Monitoring/Evaluation: Total energy intake, Total protein intake, Weight change, labs, GI tolerance Signed: Bruna Dodson, , RD, LD
--- NOTE | 2018-07-23 15:12 | NUR ---
speech therapy at bedside for swallow study.
--- NOTE | 2018-07-23 17:34 | NUR ---
WOUND CARE CONSULTATION - FOLLOW UP/ RE-EVAL Patient admitted from Home to ER for Dyspnea. HX: HTN, DM, CHF, [place], A-fib, Cervical Ca. PATIENT VISIT: - Patient in bed resting. - Jamil Score 12. - Sacral presents with large, Full thickness ulcer with palpable bone and exposed tendon. Measurements documented in wound assessment linked to this note. Periwound edges raised and rolled indicating stalled wound. Wound bed pale pink/red 100% granular with area of DTI at center base of wound. No Undermining, Periwound macerated. Draining moderate serous fluid/ serosanguineous. - Right Posterior Groin/ Adjacent to Labia. Surgical Dehiscence appears to be healing slowly. 100% Granulation. Periwound pink and no edema noted. IMPRESSION: Sacral Wound - Stage IV Pressure Ulcer - Present on Admission.-Slow Healing. Right Posterior Groin/ Labial Ulcer - Surgical Dehiscence- Slow Healing Ulcer. RECOMMENDATION: 1. Sacral - Stage IV - Pressure Ulcer Present On Admission: - Cleanse wound with Normal Saline and 4x4 gauze Daily and PRN Soiling. - Apply Silver Alginate( Maxsorb Ag+) and cover with Allevyn Foam Sacrum Dressing Daily and PRN Soiling. 2. Right Posterior Groin/ Labial Ulcer - Surgical Dehiscence- Slow Healing Ulcer: - Pack Lightly with Silver Alginate. 3. Alternating Pressure Air Mattress. 4. Continue Bilateral Heel Protectors/ Offload Heels with Pillows. 5. Turn and Reposition q2H 6. C&S and Gram Stain of Sacral Wound. 7. Strict PUP. 8. Wheel Chair Cushion when out of bed. Thank you for consulting with Wound Care. Addendum: 07/23/18 at 1739 by Mayank Perry RN Amended: Links added.
--- NOTE | 2018-07-23 19:00 | NUR ---
Bedside report received from Abigail WLYIE. Dr. Jose M Vasquez present at the bedside and new orders received and [facility] by Abigail WYLIE - CMP, Mag, Phos, IVF - D51/2NS @ 100ml/hr and chest x-ray in the morning.
--- NOTE | 2018-07-23 19:02 | Progress Note ---
DATE: Pulmonary Critical Care Progress Note SUBJECTIVE: The patient expressed a desire to eat today and is going to be evaluated by Speech Pathology. She is somnolent, but arousable. She still has tachycardia. She is having fevers. PHYSICAL EXAMINATION: VITAL SIGNS: The blood pressure is 141/99 and the heart rate is 130-140. Saturation is 99% on 3 L. HEENT: Shows no facial swelling or erythema. CARDIAC: Reveals an irregularly irregular rhythm with a normal S1 and S2. There are no murmurs or rubs. LUNGS: Auscultation of lungs reveals decreased breath sounds bilaterally. ABDOMEN: Soft and nontender. There is no rebound or guarding. EXTREMITIES: Show no leg edema or calf tenderness. There is no cyanosis or clubbing. LABORATORY DATA: The BUN to creatinine ratio is 71:4.33 and the other electrolytes are within normal limits. The glucose is 217. The albumin is 2.3. The INR is 1.56. IMPRESSION: 1. Acute on chronic respiratory failure. 2. Atrial fibrillation with a rapid ventricular response. 3. Urinary tract infection with severe sepsis, present on admission due to Klebsiella pneumoniae and Proteus. 4. Sacral wound infection. 5. Acute on chronic kidney failure. 6. Severe protein calorie malnutrition. 7. Metabolic encephalopathy. PLAN: 1. The patient and the family have asked for no heroic measures. 2. Continue medications to control ventricular rate and treat atrial fibrillation. 3. Hold off on PEG at this time as the patient is still unstable. 4. Possible swallowing evaluation. 5. Continue oxygen. 6. Continue to monitor kidney function. Fidel Figueroa MD [facility]/MODL /[id number]
[2018-07-23] MEDS: DEXTROSE 5%/0.45% SOD CHL 1,000 ML IV SCH (20:07)
[2018-07-23] MEDS: OLANZAPINE 5 MG TAB PO SCH (20:08)
[2018-07-23] MEDS: MEROPENEM 500MG/ NS 50ML 50 ML IV SCH (23:50)
[2018-07-24] VITALS (24 sets, daily range): BP systolic 111–157; BP diastolic 69–129
[2018-07-24] MEDS: METOPROLOL TARTRATE 50 MG TAB PO SCH ×3 (00:12→19:12)
[2018-07-24] MEDS: DEXTROSE 5%/0.45% SOD CHL 1,000 ML IV SCH ×2 (05:21→19:09)
[2018-07-24 05:29] LABS: ALBUMIN 2.3 g/dL (3.5-5.0); ALBUMIN/GLOBULIN RATIO 0.7 (0.8-2.0); ANION GAP 15.2 mmol/L (8-16); CALCIUM 7.9 mg/dL (8.4-10.2); CREATININE, SERUM 4.16 mg/dL (0.57-1.11); MAGNESIUM 1.3 MG/DL (1.3-2.1); PHOSPHORUS 4.1 MG/DL (2.3-4.7); POTASSIUM 3.2 mmol/L (3.5-5.1)
[2018-07-24] MEDS: INSULIN REGULAR, HUMAN 100 UNIT/1 ML 3ML VIAL SQ SCH ×5 (05:37→23:24)
--- NOTE | 2018-07-24 06:39 | Diagnostic Imaging Report ---
EXAMINATION: CHEST SINGLE (PORTABLE) INDICATION: CHF. Chronic A. fib. COMPARISON: Chest radiograph 07/23/2018. DISCUSSION: HEART AND MEDIASTINUM: The cardiac silhouette remains mildly to moderately enlarged. TUBES and LINES: Left neck central venous catheter with distal tip projected on the high SVC. Dual-lead pacemaker wires remain in the right atrium and right ventricle. LUNGS: Bilateral pulmonary venous congestion again observed. PLEURA: Small left pleural effusion. No pneumothorax. BONES AND SOFT TISSUES: No focal osseous lesion. IMPRESSION: 1. Bilateral basilar pulmonary edema has decreased.Bilateral pulmonary venous congestion appears unchanged. 2. Small left pleural effusion. Signed by: Dr. Linda Alexis M.D. on 07/24/2018 6:36 AM
--- NOTE | 2018-07-24 08:23 | NUR ---
accepted patient from night RN Nighat. pt alert and calm. following commands. hr 108-122bpm, [id number], afebrile. bp 131/97, 99% 2LO2nc
[2018-07-24] MEDS: CYANOCOBALAMIN 1,000 MCG TAB PO SCH ×2 (09:00→10:01)
[2018-07-24] MEDS: ASPIRIN 81 MG CHEW TAB PO SCH ×2 (09:00→10:00)
[2018-07-24] MEDS ORDERED: AMIODARONE 900MG 0 ML IV ONE (09:00)
[2018-07-24] MEDS: SERTRALINE HCL 50 MG TAB PO SCH ×2 (09:00→10:01)
[2018-07-24] MEDS: ASCORBIC ACID 500 MG TAB PO SCH ×3 (09:00→19:11)
[2018-07-24] MEDS: MEGACE 400MG/ 10ML CUP PO SCH ×2 (09:00→10:01)
[2018-07-24] MEDS: AMIODARONE HCL 200 MG TAB PO SCH ×3 (09:00→19:12)
[2018-07-24] MEDS: CLONIDINE HCL 0.3 MG TAB PO SCH ×2 (09:00→10:01)
[2018-07-24] MEDS: DILTIAZEM HCL 60 MG TAB PO SCH ×2 (10:00→13:33)
[2018-07-24] MEDS: FUROSEMIDE INJ 10 MG/ML 4 ML VIAL IV SCH (10:00)
--- NOTE | 2018-07-24 10:02 | NUR ---
AWAITING DECISION FROM [facility] FOR [facility] SPOKE WITH BEATRIZ FROM [facility] SHOULD HAVE DECISION TODAY
--- NOTE | 2018-07-24 10:52 | NUR ---
MBS completed by speech this morning. patient cleared for PO intake. asked by speech to crush meds for now. I crushed am meds and mixed with pudding. Patient only took two bites of pudding then refused to accept any more. unable to administer rest of po medications. notified attending of situation.
--- NOTE | 2018-07-24 11:50 | Diagnostic Imaging Report ---
PROCEDURE: X-RAY MODIFIED BARIUM SWALLOW COMPARISON: None. INDICATION: Status post extubation, possible aspiration. Radiation Details: Fluoroscopy time: 1.4 minutes Cumulative dose: 8.8 mGy DISCUSSION: Fluoroscopic examination was performed in conjunction with speech pathology during swallowing a variety of thin and thick liquid consistencies. Provided images demonstrate no laryngeal penetration or aspiration. CONCLUSION: Modified barium swallow demonstrating no laryngeal penetration or aspiration. Please refer to the speech pathology report for further details. Signed by: Dr. Sonu Keith MD on 07/24/2018 11:47 AM
[2018-07-24] MEDS ORDERED: POTASSIUM CHLORIDE 20MEQ/100ML 100 ML IV ONE ×2 (13:15→17:30)
--- NOTE | 2018-07-24 19:58 | Progress Note ---
DATE: 07/24/2018 Pulmonary Medicine Progress Note SUBJECTIVE: Ms. Muller was seen and examined at bedside. Two liters per minute by nasal cannula. 94% oxygen saturation. Urine output being produced by Su. She is on Lasix. She passed her MBS. REVIEW OF SYSTEMS: No headaches, no bleeding. Altered and limited reliability. OBJECTIVE: VITAL SIGNS: Afebrile, vital signs noted per the chart record. GENERAL: In no acute distress. Alert and calm. She is very weak and fragile. HEENT: Normocephalic, atraumatic. NECK: Supple. Throat midline. LUNGS: Bilateral air entry, decreased breath sounds, rare rhonchi. CARDIOVASCULAR: S1, S2. No murmurs, rubs, or gallops. ABDOMEN: Soft, nontender. EXTREMITIES: No clubbing, no cyanosis, there is 2+ edema. INTEGUMENT: No rash. No purpura. LABORATORY DATA: Potassium 3.2, BUN 72, creatinine 4.1. White count 10, hematocrit 31, platelets 90. IMPRESSION AND PLAN: 1. Hypokalemia. 2. Fluid overload. 3. Pneumonitis. 4. Admitted with severe Klebsiella pneumoniae and Proteus mirabilis urinary tract infection. 5. Admitted with sacral wound infection, methicillin-resistant Staphylococcus aureus. 6. Acute respiratory failure, now extubated. 7. Atrial fibrillation, encephalopathy, severe protein malnutrition, zmeag-[id number]-[id number] kidney failure, diabetes, hypertension, debility and weakness. Continue to work with therapy. Speech therapy assessed the patient's eating habits now that she has passed her MBS. Careful diet. Aspiration precautions. Continue to repeat intermittent chest x-rays until clearance. She remains at significant risk for going backwards given her overall clinical findings including the pulmonary findings such as the x-ray. We will follow along closely. MD SUDHAKAR Hooks/MIGUEL /[id number]
[2018-07-24] MEDS: OLANZAPINE 5 MG TAB PO SCH (21:47)
[2018-07-24] MEDS: MEROPENEM 500MG/ NS 50ML 50 ML IV SCH (23:09)
[2018-07-25] VITALS (26 sets, daily range): BP systolic 88–149; BP diastolic 31–122
[2018-07-25] MEDS: METOPROLOL TARTRATE 50 MG TAB PO SCH ×4 (01:09→17:00)
[2018-07-25] MEDS: LEVOFLOXACIN 500MG/D5W 100ML 100 ML IV SCH (03:30)
[2018-07-25] MEDS: METOPROLOL TARTRATE INJ 1 MG/ML VIAL IV PRN (03:55)
[2018-07-25 04:44] LABS: BASOPHILS % 0.2 % (0.0-1.0); EOSINOPHILS # (AUTO) 0.1 (0.0-0.4); EOSINOPHILS % 1.4 % (0.0-6.0); HEMATOCRIT 32.7 % (34.2-44.1); HEMOGLOBIN 10.2 g/dL (12.0-16.0); LYMPHOCYTES # (AUTO) 1.1 (1.0-3.2); LYMPHOCYTES % 11.7 % (18.0-39.1); MEAN CORPUSCULAR HGB CONC 31.2 g/dL (31-35); MEAN CORPUSCULAR VOLUME 92.9 fL (81-99); MONOCYTES # (AUTO) 0.8 (0.2-0.8); MONOCYTES % 8.7 % (4.4-11.3); NEUTROPHILS % 75.1 % (38.7-80.0); PLATELET COUNT 117 x10e3/uL (140-360); RED BLOOD COUNT 3.52 x10e6/uL (3.6-5.1); RED CELL DISTRIBUTION WIDTH 18.7 % (11.7-14.4)
[2018-07-25 05:08] LABS: ALBUMIN 2.3 g/dL (3.5-5.0); ALBUMIN/GLOBULIN RATIO 0.7 (0.8-2.0); ANION GAP 14.7 mmol/L (8-16); CALCIUM 7.9 mg/dL (8.4-10.2); CREATININE, SERUM 3.98 mg/dL (0.57-1.11); MAGNESIUM 1.2 MG/DL (1.3-2.1); PHOSPHORUS 3.7 MG/DL (2.3-4.7); POTASSIUM 3.7 mmol/L (3.5-5.1)
--- NOTE | 2018-07-25 06:08 | Diagnostic Imaging Report ---
EXAMINATION: CHEST SINGLE (PORTABLE) INDICATION: CHF. Chronic A. fib. COMPARISON: Chest radiograph 07/24/2018. DISCUSSION: HEART AND MEDIASTINUM: The cardiac silhouette remains mildly to moderately enlarged. TUBES and LINES: Left neck central venous catheter with distal tip projected on the high SVC. Dual-lead pacemaker wires remain in the right atrium and right ventricle. LUNGS: Bilateral pulmonary venous congestion not significantly changed PLEURA: Small left pleural effusion. No pneumothorax. BONES AND SOFT TISSUES: No focal osseous lesion. The soft tissues are normal. IMPRESSION: 1. Bilateral basilar pulmonary edema not significantly changed. Signed by: Dr. Linda Alexis M.D. on 07/25/2018 6:05 AM
[2018-07-25] MEDS: INSULIN REGULAR, HUMAN 100 UNIT/1 ML 3ML VIAL SQ SCH ×4 (07:30→21:00)
[2018-07-25] MEDS: AMIODARONE HCL 200 MG TAB PO SCH ×3 (09:00→17:50)
[2018-07-25] MEDS: MEGACE 400MG/ 10ML CUP PO SCH (09:00)
[2018-07-25] MEDS: CYANOCOBALAMIN 1,000 MCG TAB PO SCH ×2 (09:00→10:41)
[2018-07-25] MEDS: SERTRALINE HCL 50 MG TAB PO SCH ×2 (09:00→10:40)
[2018-07-25] MEDS: ASPIRIN 81 MG CHEW TAB PO SCH ×2 (09:00→10:41)
[2018-07-25] MEDS: ASCORBIC ACID 500 MG TAB PO SCH ×3 (09:00→17:00)
[2018-07-25] MEDS: CLONIDINE HCL 0.3 MG TAB PO SCH ×2 (09:00→10:39)
[2018-07-25] MEDS ORDERED: FUROSEMIDE INJ 10 MG/ML 4 ML VIAL IV SCH (09:00)
--- NOTE | 2018-07-25 10:10 | NUR ---
patient agitated today. patient refused to take any medications by mouth. patient refusing any patient care, pulling away from staff, trying to take bp cuff off. pt trying to get out of bed stating "I need to go home, I dont know where it is". "i cant believe noone knows where i live". also told me to "shut up" when attempting to administer am medications. pt is restrained due to removing lines and trying to get out of bed. bed is in lowest position to ground. bed on rotation and constantly being monitored for safety. paged critical care md to update with patient status and refusal of all po morning medications.
[2018-07-25] MEDS: DEXTROSE 5%/0.45% SOD CHL 1,000 ML IV SCH ×2 (10:32→16:57)
--- NOTE | 2018-07-25 10:42 | NUR ---
patient accepted po medications for this morning now.
[2018-07-25 10:58] LABS: BAND NEUTROPHILS % (MANUAL) 1 %; EOSINOPHILS % (MANUAL) 3 % (0-7); LYMPHOCYTES % (MANUAL) 9 % (19-48); MONOCYTES % (MANUAL) 7 % (3.4-9.0); MYELOCYTES % (MANUAL) 1 % (0-0); NEUTROPHILS % (MANUAL) 79 % (40-74)
[2018-07-25 11:03] LABS: PLATELET ESTIMATE SLIGHTLY DECREASED; PLATELET MORPHOLOGY COMMENT FEW LARGE
[2018-07-25 11:04] LABS: ANISOCYTOSIS SLIGHT; HYPOCHROMASIA SLIGHT; POIKILOCYTOSIS SLIGHT; RBC MORPHOLOGY COMMENT NORMAL
[2018-07-25] MEDS ORDERED: LORAZEPAM INJ 2 MG/ML VIAL IV PRN (17:15)
--- NOTE | 2018-07-25 19:52 | NUR ---
report called to [facility] Jeannette Moore agricultural equipment salesperson bed 2 . MOT given to maegan floresg report given to oma ambrizinternet marketing consultantclaim review medical director
[2018-07-25] MEDS: OLANZAPINE 5 MG TAB PO SCH (21:00)
--- NOTE | 2018-07-25 21:07 | NUR ---
Patient left via EMS stretcher. VSS P 104, SpO2 98% on 2L NC, BP 97/68, RR 17. Patient with no s/s distress. supervisor mending present, MOT signed and on the chart. [facility] informed that patient would be arriving soon.
--- NOTE | 2018-07-26 00:32 | NUR ---
SPOKE TO FERNANDO WITH SIZE BLUE. 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 CONFIRMATION#[id number].
--- NOTE | 2018-07-26 02:43 | Progress Note ---
DATE: 07/25/2018 Pulmonary Medicine Progress Note SUBJECTIVE: Ms. Muller was seen and examined at bedside. She continues to have steady progress. She remains with slow mentation, but she does initiate low-level conversation. She is intermittently refusing medicines as well and overall still confused. REVIEW OF SYSTEMS: No bleeding, no headaches. OBJECTIVE: VITAL SIGNS: Afebrile, vital signs noted per the chart record. GENERAL: No acute distress, alert, confused. HEENT: Normocephalic, atraumatic. NECK: Supple. Throat midline. LUNGS: Bilateral air entry, decreased breath sounds, decreased effort. CARDIOVASCULAR: S1 and S2. No murmurs, rubs, or gallops. ABDOMEN: Soft, nontender. EXTREMITIES: No clubbing or cyanosis, there is still the edema 1+. INTEGUMENT: No rash. No purpura. LABORATORY DATA: Labs reviewed per the chart record. 3.98 creatinine. 1.56 is last INR. IMPRESSION AND PLAN: 1. Acute respiratory failure, now extubated. 2. Urinary tract infection due to Klebsiella pneumoniae, Proteus mirabilis sepsis. 3. Sacral wound infection, methicillin-resistant Staphylococcus aureus. 4. Anemia. 5. Pfxqn-[id number] kidney failure. 6. Coagulopathy, multifactorial. 7. Severe-protein malnutrition. 8. Possible pneumonia. 9. Encephalopathy, metabolic and other. 10. Atrial fibrillation. 11. Debility and weakness. I agree the patient is candidate for LTAC. The patient to go today and I will see the patient over there. The patient will have continued antibiotics for urinary tract infection, pneumonia and sacral wound infection. Continue psychiatric medicines and coping skills. Continue apixaban, blood thinner for now. Watch for bleeding. We will follow up closely. MD SUDHAKAR Hooks/MODL /[id number]
== END 2018-07-25 21:07 | DRG 871 ==
LOC: ER 22:13 → ERHOLD 07-15 01:17 → IMCU 07-15 22:37 → ICU 07-17 13:18
PROC: 5A1945Z Respiratory Ventilation, 24-96 Consecutive Hours (ICD-10-PCS; principal; 2018-07-17)
PROC: 0BH17EZ Insertion of Endotracheal Airway into Trachea, Via Natural or Artificial Opening (ICD-10-PCS; 2018-07-17)
PROC: 02HV33Z Insertion of Infusion Device into Superior Vena Cava, Percutaneous Approach (ICD-10-PCS; 2018-07-17)
PROC: B548ZZA Ultrasonography of Superior Vena Cava, Guidance (ICD-10-PCS; 2018-07-17)
PROC: 30233N1 Transfusion of Nonautologous Red Blood Cells into Peripheral Vein, Percutaneous Approach (ICD-10-PCS; 2018-07-17)
DX: A41.9 Sepsis, unspecified organism (principal); L89.154 Pressure ulcer of sacral region, stage 4; J15.9 Unspecified bacterial pneumonia; I50.23 Acute on chronic systolic (congestive) heart failure; J96.22 Acute and chronic respiratory failure with hypercapnia; G92 Toxic encephalopathy; E43 Unspecified severe protein-calorie malnutrition; J18.9 Pneumonia, unspecified organism; N17.0 Acute kidney failure with tubular necrosis; K72.00 Acute and subacute hepatic failure without coma; T83.511A Infection and inflammatory reaction due to indwelling urethral catheter, initial encounter; I13.0 Hypertensive heart and chronic kidney disease with heart failure and stage 1 through stage 4 chronic kidney disease, or unspecified chronic kidney disease; N18.4 Chronic kidney disease, stage 4 (severe); N17.9 Acute kidney failure, unspecified; I48.2 Chronic atrial fibrillation; Z85.41 Personal history of malignant neoplasm of cervix uteri; Z82.49 Family history of ischemic heart disease and other diseases of the circulatory system; Z83.3 Family history of diabetes mellitus; E11.22 Type 2 diabetes mellitus with diabetic chronic kidney disease; Z95.810 Presence of automatic (implantable) cardiac defibrillator; D50.0 Iron deficiency anemia secondary to blood loss (chronic); B96.1 Klebsiella pneumoniae [K. pneumoniae] as the cause of diseases classified elsewhere; B96.4 Proteus (mirabilis) (morganii) as the cause of diseases classified elsewhere; B95.62 Methicillin resistant Staphylococcus aureus infection as the cause of diseases classified elsewhere; D69.6 Thrombocytopenia, unspecified; R53.81 Other malaise; E87.6 Hypokalemia; E83.42 Hypomagnesemia; Z66 Do not resuscitate; Z79.82 Long term (current) use of aspirin; Z79.4 Long term (current) use of insulin; Z79.01 Long term (current) use of anticoagulants
CPT/HCPCS: 31500; 36415; 36600; 70450; 71045; 74018; 74176; 74230; 76705; 80053; 80076; 81001; 82140; 82550; 82553; 82805; 82948; 83605; 83615; 83735; 83880; 84100; 84132; 84484; 85025; 85610; 85730; 86850; 86900; 86920; 87040; 87071; 87086; 87186; 87205; 93005; 93306; 94002; 94003; 94640; 94660; 96372; 99285; J0330; J0456; J0610; J0696; J1940; J1956; J2060; J2250; J2405; J2543; J2930; J3370; J3475; J3480; J7030; J7050; J7060; J7799; P9016